=== PATIENT | female | born 1955 | race Caucasian/White ===

== ENCOUNTER 2019-09-14 20:05 | Emergency (ER) | payer BC, OTHER ==
--- OUTSIDE RECORDS SUMMARY | 2019-09-14 20:07 | XMS REPORT ---
:1955 [facility] Address [address] [place] [address] Dr. Whyte. [address] [place] [id number] Care Team Providers Name Role Phone Unavailable Unavailable Unavailable Problems This patient has no known problems. Allergies, Adverse Reactions, Alerts This patient has no known allergies or adverse reactions. Medications This patient has no known medications.
--- OUTSIDE RECORDS SUMMARY | 2019-09-14 20:08 | XMS REPORT | Summary of Care ---
:1955 Author Organization [facility] - Health Address [address] [place] [id number] Care Team Providers Name Role Phone Krissy Arcos Md, MD Primary Care Provider Encounter Details Date Type Department Care Team Description 08/27/2019 Orders Only [facility] Doctor Unassigned, No [address] [facility] Name [place] [phone] [place] [id number] Allergies Active Allergy Reactions Severity Noted Date Comments Amoxicillin-Pot Clavulanate Hives Medium 01/30/2015 documented as of this encounter (statuses as of 08/30/2019) Medications Medication Sig Dispensed Refills Start Date End Date Status LISINOPRIL ORAL Take 30 mg by 0 Active mouth 2 (two) times daily. AMLODIPINE BESYLATE Take 2.5 mg by 0 Active (AMLODIPINE ORAL) mouth every evening. CLONIDINE HCL Take 0.3 mg by 0 Active (CLONIDINE ORAL) mouth 3 (three) times daily. ATORVASTATIN CALCIUM Take 10 mg by 0 Active (ATORVASTATIN ORAL) mouth daily. METFORMIN HCL Take 1,000 mg by 0 Active (METFORMIN ORAL) mouth 2 (two) times daily. LABETALOL HCL Take 200 mg by 0 Active (LABETALOL ORAL) mouth 2 (two) times daily. FUROSEMIDE ORAL Take 40 mg by 0 Active mouth 2 (two) times daily. CITALOPRAM Take 40 mg by 0 Active HYDROBROMIDE mouth 2 (two) (CITALOPRAM ORAL) times daily. GLIMEPIRIDE ORAL Take 4 mg by mouth 0 Active 2 (two) times daily. pantoprazole Take 1 tablet by 30 tablet 0 03/10/2016 Active (PROTONIX) 40 mg EC mouth daily. tablet proMETHazine Take 1 tablet by 20 tablet 0 03/10/2016 Active (PHENERGAN) 25 mg mouth every 6 tablet (six) hours as needed for Nausea and Vomiting (N/V). furosemide (LASIX) 40 Take 1 tablet by 20 tablet 0 04/07/2016 Active mg tablet mouth every morning and evening. lisinopril 30 mg Take 1 tablet by 20 tablet 0 02/26/2017 Active tablet mouth daily. Additional information Patient taking differently: 40 mg Oral DAILY, Reported on 11/25/2018 7:49 PM furosemide (LASIX) 40 mg Take 1 tablet by mouth 20 tablet 0 02/26/2017 Active tablet every morning and evening. cephALEXin (KEFLEX) 500 mg Take 1 capsule by mouth 20 capsule 0 11/25/2018 Active capsuleIndications: Acute 2 (two) times daily. urinary tract infection, Epigastric pain traMADOL 50 mg Take 1 tablet by mouth 12 tablet 0 11/25/2018 Active tabletIndications: Acute every 6 (six) hours as urinary tract infection, needed for Pain (scale Epigastric pain 4-6). letrozole 2.5 mg tablet Take 2.5 mg by mouth 0 Active daily. multivit,calc,mins/iron/foli Take by mouth. 0 Active c (ONE-A-DAY WOMENS FORMULA ORAL) blue-green algae (SPIRULINA 0 Active MISC) levoFLOXacin (LEVAQUIN) 750 Take 1 tablet by mouth 5 tablet 0 11/27/2018 Active mg tabletIndications: every 24 (twenty-four) Hypoglycemia hours. nystatin 100,000 unit/gram Apply to area(s) 2 15 g 0 11/27/2018 Active powderIndications: (two) times daily. Hypoglycemia naproxen sodium (ANAPROX DS) Take 1 tablet by mouth 2 30 tablet 0 2018 Active 550 mg tabletIndications: (two) times daily with Left leg pain, Fall, initial meals. encounter acetaminophen-codeine 300-30 Take 1 tablet by mouth 20 tablet 0 04/03/2019 Active mg tabletIndications: Left every 4 (four) hours as leg pain needed for Pain (scale 4-6) (Cough). documented as of this encounter (statuses as of 08/30/2019) Active Problems Problem Noted Date CHF (congestive heart failure) 11/26/2018 Hypoglycemia 11/25/2018 Obesity (BMI 30-39.9) 11/25/2018 documented as of this encounter (statuses as of 08/30/2019) Social History Tobacco Use Types Packs/Day Years Used Date Never Smoker Smokeless Tobacco: Never Used Alcohol Use Drinks/Week oz/Week Comments No 0 Standard drinks or equivalent 0.0 Sex Assigned at Date Recorded Not on file Job Start Date Occupation Industry Not on file Not on file Not on file Travel History Travel Start Travel End No recent travel history available. documented as of this encounter Last Filed Vital Signs Not on filedocumented in this encounter Plan of Treatment Health Maintenance Due Date Last Done Comments HEPATITIS C (HCV) SCREEN 1955 DTaP,Tdap,and Td Vaccines (1 - Tdap) 1972 Breast Cancer Screening (MAMMOGRAM) 1993 COLONOSCOPY 2003 Zoster Recombinant Vaccine (SHINGRIX) (1 of 2) 2003 Medicare Wellness Visit 2018 Osteoporosis Screening 2018 PNEUMOCOCCAL VACCINES 65+ (1 of 2 - PCV13) 2018 INFLUENZA VACCINE (#1) 2019 documented as of this encounter Procedures Procedure Name Priority Date/Time Associated Diagnosis Comments AUTHORIZATION FOR RELEASE Routine 08/27/2019 12:01 AM OF PHI MUSIC INTERN documented in this encounter Results Not on filedocumented in this encounter Insurance Payer Benefit Plan Subscriber ID Effective Dates Phone Address Type / Group AETNA AETNA TRS [id number] [facility] [id number] 2018-[employer] Medicare Adv MANAGED t O MEDICARE documented as of this encounter
[2019-09-14 20:59] LABS: Absolute Lymphocytes (CBC) 1.3 K/uL (0.7-4.9); Basophils % 0.5 % (0-1.3); Hematocrit 25.4 % (36.0-45.0); Lymphocytes % 12.6 % (15.3-44.8); MPV 7.7 fL (7.6-11.3); RBC Red Blood Cell Count 3.14 M/uL (3.86-4.86)
[2019-09-14 21:25] LABS: ALT/SGPT 9 U/L (12-78); AST/SGOT 10 U/L (15-37); Albumin 2.4 g/dL (3.4-5.0); Alkaline Phosphatase 89 U/L (45-117); BUN Blood Urea Nitrogen 17 mg/dL (7-18); Bicarbonate 27 mmol/L (21-32); Bilirubin Direct < 0.1 mg/dL (0-0.2); Bilirubin Total 0.2 mg/dL (0.2-1.0); Glucose Level 149 mg/dL (74-106); Lipase 291 U/L (73-393); Protein, Total 5.6 g/dL (6.4-8.2); Sodium Level 126 mmol/L (136-145)
[2019-09-14] MEDS ORDERED: POTASSIUM 25 MEQ EFFERV TAB ONE (23:04)
--- NOTE | 2019-09-14 23:45 | ER ---
Nurse's Notes [facility] [place] [place] Name: Juliet Yoon Age: 64 yrs Sex: Female : 1955 Arrival Date: 09/14/2019 Time: 20:22 Bed 2 Private MD: Diagnosis: Hypo-osmolality and hyponatremia;Hypokalemia Presentation: 09/13 20:22 Chief complaint: EMS states: patient fell while fixing her bed. hit head, denies LOC. rv family confirm she has been slow lately but alert and oriented x 4 at home. blood sugar of 193. initially hypotensive with blood pressure of 74/48, went up to 112/70 after t-wood position. Coronavirus screen: The patient has NOT traveled to a country currently being monitored by the CDC within the last 14 days. Proceed with normal triage procedures. The patient has NOT had contact with any known and/or suspected case of coronavirus. Proceed with normal triage procedures. Ebola Screen: No symptoms or risks identified at this time. Initial Sepsis Screen: Does the patient meet any 2 criteria? No. Patient's initial sepsis screen is negative. Does the patient have a suspected source of infection? No. Patient's initial sepsis screen is negative. Risk Assessment: Do you want to hurt yourself or someone else? Patient reports no desire to harm self or others. 20:22 Method Of Arrival: EMS: [facility] rv 20:22 Acuity: GERMAIN 3 rv 22:56 Onset of symptoms was September 14, 2019 at 20:00. rv Historical: - Allergies: 20:26 Augmentin; rv - PMHx: 20:26 heart's palsy; CVA; Hypertension; Diabetes - NIDDM; brain tumor; rv - PSHx: 20:26 ; Hernia repair; rv - Immunization history:: Adult Immunizations up to date. - Social history:: Smoking status: Patient denies any tobacco usage or history of. Screenin:55 Abuse screen: Denies threats or abuse. Denies injuries from another. Nutritional rv screening: No deficits noted. Tuberculosis screening: No symptoms or risk factors identified. Fall Risk Fall in past 12 months (25 points). Secondary diagnosis (15 points) impaired mobility, No IV (0 pts). Ambulatory Aid- Crutches/Cane/Walker (15 pts). Gait- Weak (10 pts.). Mental Status- Oriented to own ability (0 pts). Total Calabrese Fall Scale indicates Low Risk Score (25-44 pts). Fall prevention measures have been instituted. Side Rails Up X 2 Frequent Obs/Assesments occuring As available Patient and Family Educated on Fall Prevention Program and strategies. Assessment: 21:00 General: Appears in no apparent distress. Behavior is calm, cooperative. Pain: Denies rv pain. Neuro: Level of Consciousness is awake, alert, obeys commands, Oriented to person, place, time, situation. 21:00 Cardiovascular: Patient's skin is warm and dry. Respiratory: Airway is patent Breath rv sounds are clear bilaterally. Derm: Skin with poor turgor. 22:00 Reassessment: Patient appears in no apparent distress at this time. Patient and/or jb4 family updated on plan of care and expected duration. Pain level reassessed. Patient is alert, oriented x 3, equal unlabored respirations, skin warm/dry/pink. 23:00 Reassessment: Patient appears in no apparent distress at this time. Patient and/or jb4 family updated on plan of care and expected duration. Pain level reassessed. Patient is alert, oriented x 3, equal unlabored respirations, skin warm/dry/pink. Patient denies pain at this time. 09/14 00:00 Reassessment: Patient appears in no apparent distress at this time. Patient and/or jb4 family updated on plan of care and expected duration. Pain level reassessed. Patient is alert, oriented x 3, equal unlabored respirations, skin warm/dry/pink. 01:00 Reassessment: Patient appears in no apparent distress at this time. Patient and/or jb4 family updated on plan of care and expected duration. Pain level reassessed. Patient is alert, oriented x 3, equal unlabored respirations, skin warm/dry/pink. Pt reports having chronically low sodium and potassium. 01:30 Reassessment: Patient appears in no apparent distress at this time. Patient and/or jb4 family updated on plan of care and expected duration. Pain level reassessed. Patient is alert, oriented x 3, equal unlabored respirations, skin warm/dry/pink. PT denies pain, IV d/c'ed, verbalized understanding of d/c and follow up instructions. Denies questions. Assisted to vehicle via wheelchair.. Vital Signs: 09/13 20:10 BP 98 / 47; Pulse 71; Resp 17; Pulse Ox 100% on R/A; rv 20:22 BP 98 / 47; Pulse 70; Resp 12; Temp 97.2; Pulse Ox 100% ; rv 20:30 BP 108 / 63; Pulse 70; Resp 16; Pulse Ox 99% on R/A; rv 22:15 BP 99 / 61; Pulse 72; Resp 17; Pulse Ox 98% on R/A; rv 23:00 BP 107 / 59; Pulse 76; Resp 17; Pulse Ox 98% on R/A; Pain 0/10; jb4 09/14 00:00 BP 95 / 61; Pulse 77; Resp 16; Pulse Ox 100% on R/A; jb4 01:00 BP 102 / 56; Pulse 78; Resp 16; Pulse Ox 97% on R/A; jb4 ED Course: 09/13 20:22 Patient arrived in ED. rv 20:22 Liban Layne MD is Attending Physician. tw4 20:24 Triage completed. rv 20:26 Maintain EMS IV. Dressing intact. Good blood return noted. Site clean \T\ dry. Gauge \T\ rv site: g20 right hand. 20:54 CT Head Brain wo Cont In Process Unspecified. EDMS 21:00 Arm band placed on Patient placed Patient notified of wait time. rv 21:00 Patient has correct armband on for positive identification. Bed in low position. Call rv light in reach. Pulse ox on. NIBP on. 21:42 Adán Tay RN is Primary Nurse. jb4 23:42 Nati Sawant MD is Hospitalizing Provider. tw4 09/14 01:30 No provider procedures requiring assistance completed. IV discontinued, intact, jb4 bleeding controlled, No redness/swelling at site. Pressure dressing applied. Administered Medications: 09/13 23:07 Drug: Potassium Effervescent Tablet 50 mEq Route: PO; jb4 09/14 00:00 Follow up: Response: No adverse reaction jb4 Outcome: 09/13 23:43 Decision to Hospitalize by Provider. tw4 09/14 01:13 Discharge ordered by . tw4 01:30 Discharged to home via wheelchair, with family. jb4 01:30 Condition: stable 01:30 Discharge instructions given to patient, family, Instructed on discharge instructions, follow up and referral plans. Demonstrated understanding of instructions, follow-up care. 01:41 Patient left the ED. jb4 Signatures: Dispatcher [employer] Adán Hall, RN RN jb4 Liban Layne MD MD tw4 Pierce Vickers RN RN rv Corrections: (The following items were deleted from the chart) 09/13 22:56 22:55 Fall Risk None identified. rv rv
--- NOTE | 2019-09-14 23:45 | EDPHYS ---
Physician Documentation [facility] Name: Juliet Yoon Age: 64 yrs Sex: Female : 1955 Arrival Date: 09/14/2019 Time: 20:22 Bed 2 Private MD: ED Physician Liban Layne HPI: 09/14 04:51 This 64 yrs old Female presents to ER via EMS with complaints of fall. tw4 04:51 Details of fall: The patient fell from an upright position. Onset: The symptoms/episode tw4 began/occurred today. Associated injuries: The patient sustained injury to the head. Severity of symptoms: At their worst the symptoms were very mild, in the emergency department the symptoms have resolved. The patient has not experienced similar symptoms in the past. 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 - Social history:: Smoking status: Patient denies any tobacco usage or history of. ROS: 09/14 04:51 Constitutional: Negative for fever, chills, and weight loss, Eyes: Negative for injury, tw4 pain, redness, and discharge, Cardiovascular: Negative for chest pain, palpitations, and edema, Respiratory: Negative for shortness of breath, cough, wheezing, and pleuritic chest pain, Abdomen/GI: Negative for abdominal pain, nausea, vomiting, diarrhea, and constipation, Back: Negative for injury and pain, MS/Extremity: Negative for injury and deformity, Neuro: Negative for headache, weakness, numbness, tingling, and seizure, Psych: Negative for depression, anxiety, suicide ideation, homicidal ideation, and hallucinations. Exam: 04:51 Constitutional: This is a well developed, well nourished patient who is awake, alert, tw4 and in no acute distress. Head/Face: Normocephalic, atraumatic. Chest/axilla: Normal chest wall appearance and motion. Nontender with no deformity. No lesions are appreciated. Cardiovascular: Regular rate and rhythm with a normal S1 and S2. No gallops, murmurs, or rubs. Normal PMI, no JVD. No pulse deficits. Respiratory: Lungs have equal breath sounds bilaterally, clear to auscultation and percussion. No rales, rhonchi or wheezes noted. No increased work of breathing, no retractions or nasal flaring. Abdomen/GI: Soft, non-tender, with normal bowel sounds. No distension or tympany. No guarding or rebound. No evidence of tenderness throughout. MS/ Extremity: Pulses equal, no cyanosis. Neurovascular intact. Full, normal range of motion. Neuro: Awake and alert, GCS 15, oriented to person, place, time, and situation. Cranial nerves II-XII grossly intact. Motor strength 5/5 in all extremities. Sensory grossly intact. Cerebellar exam normal. Normal gait. Vital Signs: 09/13 20:10 BP 98 / 47; Pulse 71; Resp 17; Pulse Ox 100% on R/A; rv 20:22 BP 98 / 47; Pulse 70; Resp 12; Temp 97.2; Pulse Ox 100% ; rv 20:30 BP 108 / 63; Pulse 70; Resp 16; Pulse Ox 99% on R/A; rv 22:15 BP 99 / 61; Pulse 72; Resp 17; Pulse Ox 98% on R/A; rv 23:00 BP 107 / 59; Pulse 76; Resp 17; Pulse Ox 98% on R/A; Pain 0/10; jb4 09/14 00:00 BP 95 / 61; Pulse 77; Resp 16; Pulse Ox 100% on R/A; jb4 01:00 BP 102 / 56; Pulse 78; Resp 16; Pulse Ox 97% on R/A; jb4 MDM: 09/13 20:22 Patient medically screened. tw4 09/14 04:52 Differential diagnosis: abrasion, closed head injury, contusion. Data reviewed: vital tw4 signs, nurses notes. Data reviewed: lab test result(s), CBC, electrolytes, radiologic studies, CT scan. Data interpreted: Pulse oximetry: Interpretation: normal. Counseling: I had a detailed discussion with the patient and/or guardian regarding: the historical points, exam findings, and any diagnostic results supporting the discharge/admit diagnosis. Special discussion: I discussed with the patient/guardian in detail that at this point there is no indication for admission to the hospital. It is understood, however, that if the symptoms persist or worsen the patient needs to return immediately for re-evaluation. ED course: Pt states that her sodium is chronically low. Pt states that she will followup with PCP tomorrow. Pt remained normotensive and hemodynamically stable during her ED stay. 09/13 20:30 Order name: Basic Metabolic Panel; Complete Time: 22:25 4 09/13 22:25 Interpretation: Normal except: NA 126; CL 91; GLUC 149; K 3.0; GFR 62. tw09/13 20:30 Order name: CBC with Diff; Complete Time: 22:25 4 09/13 22:26 Interpretation: Normal except: RBC 3.14; HGB 8.6; HCT 25.4; MCV 80.8; LYM% 12.6; ODALIS% tw4 76.9; RDW 19.6. 09/13 20:30 Order name: Creatinine for Radiology; Complete Time: 22:25 4 09/13 22:26 Interpretation: Within normal limits: CRE 0.90. 09/13 20:30 Order name: Hepatic Function; Complete Time: 22:25 4 09/13 22:26 Interpretation: Normal except: A/G 0.8; ALB 2.4; TP 5.6; AST 10; ALT 9. 09/13 20:30 Order name: Lipase; Complete Time: 22:25 tw4 09/13 22:26 Interpretation: Within normal limits: LIP 291. 09/13 20:30 Order name: CT Head Brain wo Cont 09/13 20:30 Order name: IV Saline Lock; Complete Time: 20:43 09/13 20:30 Order name: Labs collected and sent; Complete Time: 20:43 Administered Medications: 09/13 23:07 Drug: Potassium Effervescent Tablet 50 mEq Route: PO; 4 09/14 00:00 Follow up: Response: No adverse reaction 4 Disposition: 09/15/19 01:13 Discharged to Home. Impression: Hypo-osmolality and hyponatremia, Hypokalemia. - Condition is Stable. - Discharge Instructions: Potassium Content of Foods, Hyponatremia, Hyponatremia, [id number]. - Medication Reconciliation Form, Thank You Letter, Antibiotic Education, Prescription Opioid Use form. - Follow up: Private Physician; When: Upon discharge from the Emergency Department; Reason: Recheck today's complaints, Continuance of care, Re-evaluation by your physician. Signatures: Dispatcher [employer] EDMS Nilda Tavera RN RN Adán Tay RN RN jb4 Liban Layne MD MD [facility] Pierce Vickers, RN RN Corrections: (The following items were deleted from the chart) 09/13 23:46 23:43 Hospitalization Ordered by Nati Sawant MD for Observation. Preliminary diagnosis is Hypo-osmolality and hyponatremia; Hypokalemia; Fall on same level, unspecified; Weakness. Bed requested for Telemetry/MedSurg (observation). Status is Observation. Condition is Stable. Problem is new. Symptoms are unchanged. [facility] 09/14 01:07 09/13 23:46 09/14/2019 23:43 Hospitalization Ordered by Nati Sawant MD for tw4 Observation. Preliminary diagnosis is Hypo-osmolality and hyponatremia; Hypokalemia; Fall on same level, unspecified; Weakness. Bed requested for [facility] ER HOLD. Status is Observation. Condition is Stable. Problem is new. Symptoms are unchanged. 09/14 01:41 01:13 09/15/2019 01:13 Discharged to Home. Impression: Hypo-osmolality and jb4 hyponatremia; Hypokalemia. Condition is Stable. Forms are Medication Reconciliation Form, Thank You Letter, Antibiotic Education, Prescription Opioid Use. Follow up: Private Physician; When: Upon discharge from the Emergency Department; Reason: Recheck today's complaints, Continuance of care, Re-evaluation by your physician. tw
[2019-09-15 01:52] VITALS: TEMP 97.2
[2019-09-15 01:59] VITALS: BP 102/56; O2SAT 97
--- NOTE | 2019-09-15 12:08 | RAD REPORT ---
EXAM DESCRIPTION: Head Brain Wo Cont CLINICAL HISTORY: 64 years Female PAIN TECHNIQUE: Contiguous axial CT images obtained through the brain without IV contrast. Coronal and sa gittal reformatted images also provided. This CT exam was performed according to our departmental dose-optimization program, which includes on e or more of the following dose reduction techniques: automated exposure control, adjustment of the m A and/or kV according to patient size, and/or use of iterative reconstruction technique. COMPARISON: No prior exams provided for comparison. FINDINGS: Prior right pterional craniotomy with encephalomalacia of the anterior right temporal lobe , inferior right frontal lobe, and right insula. There is no intracranial hemorrhage, extraaxial fabricio ection, or evidence of acute transcortical infarction. Patchy foci of low attenuation within the periventricular and subcortical white matter are most tiffanie tible with chronic microvascular disease. There is mild diffuse volume loss without midline shift. Cueto bcentimeter falcine lipoma. Severe left mastoiditis. The right mastoid air cells are clear. The visualized paranasal sinuses are clear bilaterally. Atherosclerotic calcifications. IMPRESSION: Chronic postsurgical and microvascular changes. Severe left mastoiditis. No other acute intracranial abnormality. Electronically signed by: Adrienne Haider MD 09/14/2019 9:37 PM CDT Due to temporary technical issues with the PACS/Fluency reporting system, reports are being signed by the in house radiologist as a courtesy to ensure prompt reporting. The interpreting radiologist is f ully responsible for the content of the report.
== END 2019-09-15 01:41 | disposition home or self-care (01) ==
LOC: ER 20:05
DX: E87.6 Hypokalemia (principal); E87.1 Hypo-osmolality and hyponatremia; W19.XXXA Unspecified fall, initial encounter; Y93.9 Activity, unspecified; Y92.9 Unspecified place or not applicable; I10 Essential (primary) hypertension; Z86.73 Personal history of transient ischemic attack (TIA), and cerebral infarction without residual deficits; Z88.1 Allergy status to other antibiotic agents
CPT/HCPCS: 36415; 70450; 80048; 80076; 83690; 85025; 99284

== ENCOUNTER 2019-12-21 21:44 | Emergency (ER) | payer OTHER ==
[2019-12-21] MEDS ORDERED: LIDOCAINE 1% W/EPI 1:100,000 MDV 20 ML VIAL ONE ×2 (21:57→22:34)
[2019-12-21] MEDS ORDERED: CEFTRIAXONE/SWI 1gm 1 GM/10 ML SYR ONE (22:34)
[2019-12-21] MEDS ORDERED: NA CHLORIDE 0.9% 1,000 ML ONE (22:34)
[2019-12-21 22:46] LABS: Absolute Lymphocytes (CBC) 1.9 K/uL (0.7-4.9); Basophils % 0.4 % (0-1.3); Hematocrit 29.9 % (36.0-45.0); Lymphocytes % 16.3 % (15.3-44.8); MPV 9.3 fL (7.6-11.3); RBC Red Blood Cell Count 3.93 M/uL (3.86-4.86)
[2019-12-21 22:47] LABS: Protime INR 1.03
[2019-12-21 23:03] LABS: ALT/SGPT 38 U/L (12-78); AST/SGOT 34 U/L (15-37); Albumin 3.7 g/dL (3.4-5.0); Alkaline Phosphatase 130 U/L (45-117); BUN Blood Urea Nitrogen 25 mg/dL (7-18); Bicarbonate 28 mmol/L (21-32); Bilirubin Direct < 0.1 mg/dL (0-0.2); Bilirubin Total 0.4 mg/dL (0.2-1.0); Glucose Level 103 mg/dL (74-106); Magnesium 1.9 mg/dL (1.8-2.4); NT PRO-BNP 297 pg/mL (<125); Potassium 3.2 mmol/L (3.5-5.1); Protein, Total 7.5 g/dL (6.4-8.2); Sodium Level 127 mmol/L (136-145); Troponin (Emerg Dept Use Only) < 0.02 ng/mL (0.0-0.045)
--- OUTSIDE RECORDS SUMMARY | 2019-12-21 23:06 | XMS REPORT | Clinical Summary ---
:1955 Author Organization [facility] Address [address] [place] [address] Care Team Providers Name Role Phone MD Krissy Primary Care Provider Allergies Active Allergy Reactions Severity Noted Date Comments Amoxicillin-Pot Clavulanate Hives Medium 01/30/2015 Medications Medication Sig Dispensed Refills Start End Status Date Date metFORMIN XR Take 1,000 mg by 0 Active (GLUCOPHAGE-XR) 500 mouth 2 (two) mg 24 hr tablet times a day. atorvastatin Take 10 mg by 0 Act wyatt (LIPITOR) 10 MG mouth nightly. tablet ascorbate calcium Take by mouth 0 Active (VITAMIN C ORAL) daily. furosemide (LASIX) Take 40 mg by 0 Active 40 mg tablet mouth 2 (two) times a day. labetalol Take 200 mg by 3 05/19/20 Activ e (NORMODYNE) 200 MG mouth 2 (two) 19 tablet times a day. POTASSIUM ORAL Take by mouth. 0 Active pantoprazole TAKE ONE (1) 30 tablet 0 07/23/19 Acti ve (PROTONIX) 40 MG EC TABLET(S) BY 20 tablet MOUTH EVERY MORNING ON AN EMPTY STOMACH. magnesium oxide 200 Take 200 mg by 60 tablet 1 08/06/19 Active mg magnesium tablet mouth daily. 20 potassium chloride Take 1 tablet 60 tablet 10 09/09/19 Active (K-DUR) 20 MEQ CR (20 mEq total) 20 tablet by mouth 2 (two) times a day. Tradjenta 5 mg TAKE ONE (1) 90 tablet 0 11/30/19 Ac tive tablet TABLET(S) BY 20 MOUTH ONCE A DAY WITH BREAKFAST. traMADoL (ULTRAM) 50 Take 1 tablet 30 tablet 3 11/30/1912/24 Active mg (50 mg total) by 20 020 tabletIndications: mouth every 4 acute pain (four) hours as needed for moderate pain for up to 25 days .acute pain. DULoxetine Take 1 capsule 30 capsule 3 12/09/19 Act wyatt (CYMBALTA) 30 MG (30 mg total) by 20 020 capsule mouth daily for 120 days. ondansetron (ZOFRAN) TAKE ONE (1) 20 tablet 0 12/20/19 Active 8 MG TABLET(S) BY 20 tabletIndications: MOUTH EVERY Invasive ductal EIGHT HOURS carcinoma of breast, NEEDED FOR female, left (HCC) NAUSEA AND VOMITING. furosemide (LASIX) Take 40 mg by 0 Discontinued 40 mg tablet mouth 2 (two) 019 (Re order) times a day. labetalol Take 200 mg by 0 Disco ntinued (NORMODYNE) 200 MG mouth daily. 019 (Stop Taking at tablet Discharge) citalopram (CeleXA) Take 40 mg by 0 Discontinued 40 MG tablet mouth 2 (two) 019 ( erapy times a day. complet ed) mv-mn/folic Take by mouth 0 Disc ontinued acid/calcium/vit K daily. 019 (WOMEN'S 50 PLUS MULTIVITAMIN ORAL) inulin (FIBER Take by mouth 0 Di scontinued GUMMIES ORAL) daily. 019 (Med L ist Cleanup) pantoprazole TAKE 1 TABLET BY 30 tablet 0 11/25/19 Discontinued (PROTONIX) 40 MG EC MOUTH EVERY 019 (Reorder) tablet MORNING ON AN EMPTY STOMACH ondansetron (ZOFRAN) Take 1 tablet (8 30 tablet 2 11/25/19 8 MG tablet mg total) by 019 mouth every 8 (eight) hours as needed for nausea or vomiting for up to 30 days. acetaminophen-codein Take 1 tablet by 0 03/05/20 Discontinued e (TYLENOL WITH mouth every 6 17 019 (Stop Taking at CODEINE #3) 300-30 (six) hours as Discharge) mg per tablet needed. 1 tablet every 4 hrs as needed for pain cephalexin (KEFLEX) Take 500 mg by 0 11/26/1912/21 Discontinued 500 MG capsule mouth. 1 tablet (Therapy twice a day complete d) levoFLOXacin 1 tablet every 0 11/29/19 Di scontinued (LEVAQUIN) 750 MG 24 hrs (T herapy tablet completed) nystatin Apply topically. 0 11/28/19 Dis continued (MYCOSTATIN) 100,000 Apply topically. 18 07 9 (Med List unit/gram powder Stephen carly) insulin GLARGINE By endocrine : 0 12/02/19 Discontinued (BASAGLAR KWIKPEN 25 Units qam (Med List U-100 INSULIN) 100 C leanup) unit/mL injection (pen)Indications: Type 2 diabetes mellitus with hyperglycemia, with long-term current use of insulin ([facility]) lidocaine-prilocaine Apply to port 1 30 g 0 12/17/1916/08 Discontinued (EMLA) 2.5-2.5 % hour prior to creamIndications: chemotherapy Invasive ductal carcinoma of breast, female, left (HCC) letrozole (FEMARA) Take 1 tablet by 10 12/06/1903/01/ Discontinued 2.5 mg chemo tablet mouth every (Reorder) evening. CARAFATE 100 mg/mL Take 10 mL by 0 12/01/19 Discontinued suspension mouth 4 (four) (Med List times a day Cleanup) before meals and nightly. pantoprazole TAKE 1 TABLET BY 30 tablet 0 12/30/19 Discontinued (PROTONIX) 40 MG EC MOUTH EVERY (Reorder) tablet MORNING ON AN EMPTY STOMACH lidocaine-prilocaine Apply to port 1 30 g 3 01/14/2014/08 Discontinued (EMLA) 2.5-2.5 % hour prior to (Stop Taking at creamIndications: chemotherapy Discharge) Invasive ductal carcinoma of breast, female, left (HCC) pantoprazole TAKE 1 TABLET BY 30 tablet 0 02/04/20 Discontinued (PROTONIX) 40 MG EC MOUTH EVERY (Reorder) tablet MORNING ON AN EMPTY STOMACH furosemide (LASIX) Take 1 tablet 60 tablet 0 02/27/20 Discontinued 40 mg tablet (40 mg total) by (Reorder) mouth 2 (two) times a day. furosemide (LASIX) TAKE 1 TABLET BY 30 tablet 0 03/03/2002/28 40 mg tablet MOUTH TWICE DAILY pantoprazole TAKE 1 TABLET BY 30 tablet 0 03/08/20 Discontinued (PROTONIX) 40 MG EC MOUTH EVERY (Reorder) tablet MORNING ON AN EMPTY STOMACH letrozole (FEMARA) Take 1 tablet 30 tablet 0 03/26/20 Discontinued 2.5 mg chemo tablet (2.5 mg total) 019 (Reorder) by mouth daily for 30 days. letrozole (FEMARA) TAKE 1 90 tablet 0 03/30/20 E xpired 2.5 mg chemo tablet TABLET(2.5 MG) BY MOUTH DAILY linaGLIPtin Take 5 mg by 0 Disco ntinued (TRADJENTA) 5 mg mouth daily with 020 (Reorder) tablet breakfast. pantoprazole TAKE 1 TABLET BY 30 tablet 0 04/09/20 Discontinued (PROTONIX) 40 MG EC MOUTH EVERY (Stop Taking at tablet MORNING ON AN Discha rge) EMPTY STOMACH labetalol Take 2 tablets 120 tablet 0 04/08/20 Expi red (NORMODYNE) 200 MG (400 mg total) tablet by mouth 2 (two) times a day for 30 days. acetaminophen-codein Take 1 tablet by 30 tablet 0 04/08/20 e (TYLENOL WITH mouth every 4 CODEINE #3) 300-30 (four) hours as mg per needed for tabletIndications: moderate pain acute pain for up to 30 days .Acute Pain. pantoprazole Take 1 tablet 30 tablet 0 05/01/20 Exp ired (PROTONIX) 40 MG EC (40 mg total) by tabletIndications: mouth daily for Internal derangement 30 days. of left knee, Accelerated hypertension, Hyponatremia, Brown's palsy, Family history of early CAD, Status post brain surgery, S/P colonoscopy with polypectomy, H/O hernia repair, Stage 3 chronic kidney disease (HCC), Anxiety and depression, Swelling of lower extremity, Gait abnormality, Uses walker, Severe obesity (BMI 35.0-39.9) with comorbidity (HCC), Invasive ductal carcinoma of breast, female, left (HCC), Anemia of chronic disease, Hx of endoscopy, Numbness and tingling of both legs, Iron deficiency HYDROcodone-acetamin Take 1 tablet by 20 tablet 0 04/30/20 ophen (NORCO) 10-325 mouth every 6 19 019 mg per (six) hours as tabletIndications: needed for acute pain moderate pain for up to 7 days .Acute Pain. Max Daily Amount: 4 tablets Lactobacillus Take 1 packet (1 90 packet 0 04/30/20 Discontinued acidoph-L.bulgar g total) by 019 ( Med List (LACTINEX) 100 mouth 3 (three) Cleanup) million cell tablet times a day for 30 days. clotrimazole-betamet Apply topically 45 g 1 05/24/2024/08 hasone (LOTRISONE) 2 (two) times a 019 1-0.05 % cream day for 30 days. pantoprazole Take 40 mg by 0 Dis continued (PROTONIX) 40 MG EC mouth every 020 tablet morning. acetaminophen Take by mouth. 0 D iscontinued (TYLENOL ORAL) 019 (Stop Taking at Discharge) HYDROcodone-acetamin Take 1 tablet by 60 tablet 0 06/25/20 ophen (NORCO) 10-325 mouth every 6 19 020 mg per (six) hours as tabletIndications: needed for chronic pain moderate pain for up to 15 days .chronic pain. Max Daily Amount: 4 tablets ondansetron (ZOFRAN) Take 1 tablet (8 20 tablet 1 06/25/20 Discontinued 8 MG mg total) by 19 020 (Reorde r) tabletIndications: mouth every 8 Invasive ductal (eight) hours as carcinoma of breast, needed for female, left (HCC) nausea or vomiting. letrozole (FEMARA) Take 1 tablet 90 tablet 2 07/05/19 2.5 mg chemo tablet (2.5 mg total) 20 020 by mouth daily for 90 days. linaGLIPtin Take 1 tablet (5 90 tablet 0 07/06/19 D iscontinued (TRADJENTA) 5 mg mg total) by 20 020 tablet mouth daily with breakfast. prochlorperazine Take 1 tablet 30 tablet 2 07/12/19 (COMPAZINE) 10 MG (10 mg total) by 20 020 tablet mouth every 6 (six) hours as needed for nausea or vomiting for up to 30 days. HYDROcodone-acetamin Take 1 tablet by 60 tablet 0 07/22/ ophen (NORCO) 10-325 mouth every 6 20 020 mg per (six) hours as tabletIndications: needed for chronic pain moderate pain for up to 30 days .chronic pain. Max Daily Amount: 4 tablets DULoxetine Take 1 capsule 90 capsule 3 07/30/19 Dis continued (CYMBALTA) 30 MG (30 mg total) by 20 020 capsule mouth daily. potassium chloride Take 20 mEq by 15 packet 11 08/06/19 Discontinued (KLOR-CON) 20 mEq mouth every 20 020 (Dose packet other day. adjustmen t) HYDROcodone-acetamin Take 1 tablet by 30 tablet 0 08/26/19 ophen (NORCO) 10-325 mouth every 6 20 020 mg per (six) hours as tabletIndications: needed for chronic pain moderate pain for up to 30 days .chronic pain. Max Daily Amount: 4 tablets OLANZapine (ZyPREXA) Take 1 tablet (5 3 tablet 0 09/30/19 5 MG tablet mg total) by 20 020 mouth nightly for 3 days. To help with nausea DULoxetine 2 tab daily for 0 10/12/19 Dis continued (Cymbalta) 30 MG depression 20 020 capsuleIndications: Reactive depression traMADoL (Ultram) 50 Take 1 tablet 90 tablet 0 10/21/1911/09 Discontinued mg (50 mg total) by 20 020 (Re order) tabletIndications: mouth every 6 acute pain, chronic (six) hours as pain needed for moderate pain for up to 30 days .acute pain, chronic pain. traMADoL (Ultram) 50 chronic pain. 40 tablet 0 11/10/1911/19 mg Take 1 tablet by 20 020 tabletIndications: mouth every 6 chronic pain hours as needed for pain LORAZepam (Ativan) To be taken on 1 tablet 0 11/16/19 0.5 MG tablet the day of the MRI 30 minutes before procedure. DULoxetine Take 2 capsules 3 11/26/19 Dis continued (Cymbalta) 30 MG (60 mg total) by capsuleIndications: mouth daily for Reactive depression 90 days. 2 tab daily for depression DULoxetine Take 1 capsule 30 capsule 11 11/29/19 Dis continued (Cymbalta) 60 MG (60 mg total) by capsule mouth daily. traMADoL (Ultram) 50 Take 1 tablet 20 tablet 0 11/29/1912/03 mg (50 mg total) by 020 tabletIndications: mouth every 6 acute pain (six) hours as needed for moderate pain for up to 5 days .acute pain. ondansetron (Zofran) Take 1 tablet (8 20 tablet 1 12/20/19 Discontinued 8 MG mg total) by (Duplic ate tabletIndications: mouth every 8 order) Invasive ductal (eight) hours as carcinoma of breast, needed for female, left (HCC) nausea or vomiting. Hospital, Clinic, or Ordered Dose Route Frequency Start Date End D ate Status Other Facility Administered Medication potassium chloride 20 mEq IV every 1 hour 01/15/2019 01 Ended 20 mEq in 100 mL 9 IVPB (FOR CENTRAL LINE ONLY)Indications: Invasive ductal carcinoma of breast, female, left (HCC) potassium chloride 20 mEq IV every 1 hour 02/05/2019 01 Ended 20 mEq in 100 mL 9 IVPB (FOR CENTRAL LINE ONLY)Indications: Hypokalemia magnesium sulfate 2 2 g IV once 05/07/2019 Discontinued g/50 mL IVPB 9 (premix)Indications: Hypomagnesemia magnesium sulfate 1 g IV once 07/08/2019 E nded 1g/100mL D5W IVPB 0 (premix)Indications: Hypomagnesemia potassium chloride 20 mEq IV every 1 hour 07/29/2019 02 Ended 20 mEq in 100 mL 0 IVPB (FOR CENTRAL LINE ONLY)Indications: Hypokalemia magnesium sulfate 2 2 g IV once 07/29/2019 Ended g/50 mL IVPB 0 (premix)Indications: Hypomagnesemia magnesium sulfate 2 2 g IV once 08/05/2019 Ended g/50 mL IVPB 0 (premix)Indications: Hypomagnesemia potassium chloride 40 mEq oral once 08/12/2019 Ended (KAYCIEL) 20 mEq/15 0 mL solution 40 mEqIndications: Hypokalemia magnesium sulfate 2 2 g IV once 08/12/2019 Ended g/50 mL IVPB 0 (premix)Indications: Hypomagnesemia potassium chloride 40 mEq oral once 08/19/2019 Discontinued (K-DUR) CR tablet 40 0 mEqIndications: Hypokalemia magnesium sulfate 2 2 g IV once 08/19/2019 Ended g/50 mL IVPB 0 (premix)Indications: Hypomagnesemia potassium chloride 20 mEq IV every 1 hour 08/19/2019 02 Ended 20 mEq in 100 mL 0 IVPB (FOR CENTRAL LINE ONLY)Indications: Hypokalemia magnesium sulfate 2 2 g IV once 08/26/2019 Ended g/50 mL IVPB 0 (premix)Indications: Hypomagnesemia potassium chloride 40 mEq oral once 08/26/2019 Ended (K-DUR) CR tablet 40 0 mEqIndications: Hypokalemia potassium chloride 20 mEq IV every 1 hour 09/09/2019 02 Ended 20 mEq in 100 mL 0 IVPB (FOR CENTRAL LINE ONLY)Indications: Hypokalemia magnesium sulfate 2 2 g IV once 09/09/2019 Ended g/50 mL IVPB 0 (premix)Indications: Hypomagnesemia potassium chloride 40 mEq oral once 09/09/2019 Ended (K-DUR) CR tablet 40 0 mEqIndications: Hypokalemia Active Problems Problem Noted Date Iron deficiency anemia 10/12/2019 Balance problems 10/12/2019 Weakness 10/12/2019 Acute knee pain 10/12/2019 Hypokalemia 08/05/[address] Hutton 04/201907/18/2019 Overview: Nuclear stress test 10/2018 no perfusion defect Echo 65% EF Carotid duplex ;minimal thickenning H/O cardiovascular stress test 11/1507/18/2019 H/O echocardiogram 2018 EF 65 % 07/18/2019 Hypomagnesemia 05/07/2019 Tibial plateau fracture, left 04/13/2019 Hyponatremia 04/05/2019 Internal derangement of left knee 04/04/2019 Iron deficiency 12/09/2018 Numbness and tingling of both legs 12/08/2018 Invasive ductal carcinoma of breast, female, left 09/28 Cancer Staging: Pathologic stage from : No Stage Recommended (ypT2, pN0, cM0) - Signed by Johnny Le MD on 07/27/2019 Anemia of chronic disease 10/13/2018 Hx of endoscopy 2 to GI bleed 2 to ibuprofen in 2016 0 10/13/2018 Anxiety and depression 09/22/2018 Swelling of lower extremity 09/22/2018 Gait abnormality 09/22/2018 Uses walker 09/22/2018 Severe obesity (BMI 35.0-39.9) with comorbidity 2018 Diabetes mellitus 09/21/2018 Hyperlipidemia 09/21/2018 Hypertension 09/21/2018 Sleep apnea 09/21/2018 Overview: with out cpap Osteoarthritis 09/21/2018 GERD (gastroesophageal reflux disease) 09/21/2018 Brown's palsy 09/21/2018 Family history of early CAD BROTHER 09/21/2018 Status post brain surgery: tumor 2012 09/21/2018 S/P colonoscopy with polypectomy 201509/21/2018 Basal cell carcinoma 09/21/2018 H/O hernia repair 09/21/2018 Idiopathic scoliosis 09/21/2018 History of cataract surgery b/l 09/21/2018 Stage 3 chronic kidney disease 09/21/2018 Resolved Problems Problem Noted Date Resolved Date Malignant neoplasm of left female breast 06/16/2019 06/18/2019 Breast cancer in female 06/16/2019 06/18/2019 Encounters Date Type Specialty Care Team Description 12/21/2019 Telephone Oncology Sagrario Gurrola NP-C 12/21/2019 Social Work Oncology Jose Babb LMSW 12/21/2019 Telephone Oncology Sagrario Gurrola NP-C 12/20/2019 Orders Only Oncology Sagrario Gurrola ductal JEAN Ferrara carcinoma of br east, female, left (H CC) 12/20/2019 Refill Oncology Niravaharley, Invasive ductal Eugenie Torres MD carcinoma of b reast, female, left (H CC) 12/14/2019 Social Work Oncology Jose Babb, EXTRUDER OPERATOR VERTICAL 12/14/2019 Orders Only Oncology Niravath, Encounter for a ntineoplastic chemotherapy (Primary Dx); Eugenie Torres MD Osteoporosis s creening; Post-menopausal 12/14/2019 Telephone Oncology Sagrario Gurrola NP-C 12/09/2019 Nurse Only Oncology Krissy, Elevated blood sugar (Primary Dx); MD Josselyn Hypokalemia; Hypomagnesemia; Invasive ductal carcinoma of breast, female, left (HCC) 12/09/2019 Office Visit Oncology Sagrario Gurrola Invasive ductal YESSY FerraraC carcinoma of br east, female, left (H CC) (Primary Dx) 12/09/2019 Infusion Oncology Gay, Hypokalemia (Pr imary Dx); Eugenie Torres MD Hypomagnesemia ; Invasive ductal carcinoma of breast, female, left (HCC) 12/09/2019 Orders Only Oncology Ezequiel Miguel RN 12/09/2019 Orders Only Oncology Gay, Hypokalemia (Pr imary Dx); Eugenie Torres MD Hypomagnesemia ; Invasive ductal carcinoma of breast, female, left (HCC) 12/09/2019 Travel 12/09/2019 [facility] 12/06/2019 Travel 12/03/2019 Orders Only Oncology Ezequiel Miguel, MARVIN 11/30/2019 Refill Orthopedic Surgery Alejandra Ivy MA 11/29/2019 Orders Only Oncology Sagrario Gurrola NP-C 11/29/2019 Orders Only Oncology Ezequiel Miguel RN 11/29/2019 Telephone Oncology Eugenie Bowen MD 11/29/2019 Orders Only Oncology Ezequiel Miguel RN 11/28/2019 Refill Internal Medicine Josselyn Rey MD 11/26/2019 Office Visit Orthopedic Surgery Buchert, Thoracic compression fracture, closed, initial encounter ([facility]) (Primary Dx); Maik Verdugo, Sagittal plane imbalance; PA-C Acute midline t horacic back pain; Degenerative sc oliosis in adult patient; Degeneration of intervertebral disc of lumbar region; Spondylolisthes is of lumbar region; Chronic low amina k pain, unspecified back pain laterality, unspecified whether sciatica present 11/26/2019 Orders Only Oncology Gurrola, Sagrario Reactive paul Ferrara EXTERMINATOR HELPER TERMITE-C 11/25/2019 Travel 11/24/2019 Social Work Oncology Jose Babb, [facility] 11/18/2019 Infusion Oncology Niravath, Hypokalemia (Pr imary Dx); Eugenie Torres MD Hypomagnesemia ; Invasive ductal carcinoma of breast, female, left (HCC); Stage 3 chronic kidney disease (HCC) 11/18/2019 Office Visit Oncology Niravath, Invasive ductal carcinoma of breast, female, left (HCC) (Primary Dx); Eugenie Torres MD Nausea and vom iting, intractability of vomiting not specified, unspecified vomiting type; Back pain, unsp ecified back location, unspecified back pain laterality, unspecified chronicity; Compression fra cture of body of thoracic vertebra (HCC); Counseling and coordination of care; Hypokalemia; Hypomagnesemia 11/18/2019 Hospital Encounter Radiology Niravath, Abnormal finding of Eugenie Torres MD diagnostic emeka ging 11/18/2019 Oncology Oncology Favian Brown, RN 11/18/2019 Orders Only Oncology Ezequiel Miguel RN 11/17/2019 Travel 11/16/2019 Orders Only Oncology Gurrola, Sagrario Ferrara, EXTERMINATOR HELPER [employer]-C 11/15/2019 Telephone Oncology GurrolaSagrario presley, EXTERMINATOR HELPER TERMITE-C 11/15/2019 Travel 11/15/2019 Orders Only Oncology Niravath, Abnormal findin g of Eugenie Torres MD diagnostic emeka ging (Primary Dx) 11/10/2019 Orders Only Oncology Sagrario Gurrola, EXTERMINATOR HEL[employer]-C 11/09/2019 Travel 11/09/2019 Documentation Oncology GurrolaSagrario presley, EXTERMINATOR HELPER TERM[employer]-C 11/09/2019 Orders Only Pharmacy Shanda Calzada, [facility] 11/09/2019 Telephone Oncology Sagrario Gurrola, EXTERMINATOR HELPER TERM[employer]-C 10/28/2019 Telephone Oncology GurrolaSagrario presley, EXTERMINATOR HELPER TERM[employer]-C 10/27/2019 Social Work Oncology Jose Babb, [facility] 10/22/2019 Telephone Oncology GurrolaSagrario presley, EXTERMINATOR HELPER TERMITE-C 10/21/2019 Hospital Encounter Radiology Niravath, Eugenie Torres MD 10/21/2019 Office Visit Oncology Gurrola, Sagrario Invasive ductal Alem, JAYLA-C carcinoma of br east, female, left (H CC) (Primary Dx) 10/21/2019 Hospital Encounter Radiology Niravath, Invasive ductal Eugenie Torres MD carcinoma of b reast, female, left (H CC) 10/21/2019 Infusion Oncology Niravath, Hypokalemia (Pr imary Dx); Eugenie Torres MD Hypomagnesemia ; Invasive ductal carcinoma of breast, female, left (HCC); Stage 3 chronic kidney disease (HCC) 10/21/2019 Orders Only Oncology Sagrario Gurrola, JAYLA-C 10/20/2019 Travel 10/20/2019 Documentation Oncology Lang Johnson RN 10/19/2019 Telephone Consult Internal Medicine [facility], React wyatt depression (Primary Dx); MD Josselyn Uncontrolled ty pe 2 diabetes mellitus with hyperglycemia (HCC); Mixed hyperlipi demia; Essential hyper tension; Weight loss 10/19/2019 Orders Only Oncology Niravath, Hypokalemia (Pr imary Dx); Eugenie Torres MD Hypomagnesemia ; Invasive ductal carcinoma of breast, female, left (HCC) 10/18/2019 Social Work Oncology Jose Babb [facility] 10/18/2019 Travel 10/18/2019 Orders Only Oncology Niravath, Invasive ductal Eugenie Torres MD carcinoma of b reast, female, left (H CC) (Primary Dx) 10/15/2019 Telephone Oncology Eugenie Bowen MD 10/14/2019 Telephone Oncology Eugenie Bowen MD 10/13/2019 Travel 10/13/2019 Telephone Internal Medicine [facility], Acute pain of both knees (Primary Dx); MD Josselyn Weakness; Balance problem ; Gait disorder 10/13/2019 Telephone Oncology Eugenie Bowen MD 10/12/2019 [facility]2019 Social Work Oncology Jose Babb LMSW 10/04/2019 Social Work Oncology Jose Babb LMSW 09/30/2019 Office Visit Oncology Niravath, Invasive ductal carcinoma of breast, female, left (HCC) (Primary Dx); Eugenie Torres MD Nausea and vom iting, intractability of vomiting not specified, unspecified vomiting type; Anemia, unspeci fied type 09/30/2019 Infusion Oncology Niravath, Hypokalemia (Pr imary Dx); Eugenie Torres MD Hypomagnesemia ; Invasive ductal carcinoma of breast, female, left (HCC); Anemia of chron ic disease; Stage 3 chronic kidney disease (HCC) 09/30/2019 Orders Only Oncology Ezequiel Miguel RN 09/30/2019 Orders Only Oncology Majo Rosa RN 09/29/2019 Travel 09/27/2019 Social Work Oncology Jose Babb, [facility] 09/23/2019 Social Work Oncology Jose Babb, [facility] 09/22/2019 Orders Only Oncology Gurrola, Sagrario Invasive ductal Alem, EXTERMINATOR HELPER TERMITE-C carcinoma of br east, female, left (H CC) (Primary Dx) 09/22/2019 Orders Only Internal Medicine ProviderKavitha MD 09/22/2019 Telephone Oncology NiravaEugenie souza MD 09/16/2019 Documentation Oncology Shanda Calzada, [facility] 09/14/2019 Travel 09/10/2019 Telephone Oncology GurrolaSagrario presley, EXTERMINATOR HELPER TERMITE-C 09/10/2019 Telephone Oncology Sagrario Gurrola, EXTERMINATOR HELPER TERM[employer]-C 09/09/2019 Hospital Encounter Procedural Niravath, Invasive ductal carcinoma of breast, female, left (HCC); Cardiology Euegnie Torres MD [facility] for 09/09/2019 Office Visit Oncology Gurrola, Sagrario Invasive ductal Alem, EXTERMINATOR HELPER TERMITE-C carcinoma of br east, female, left (H CC) (Primary Dx) 09/09/2019 Infusion Oncology Niravath, Hypokalemia (Pr imary Dx); Eugenie Torres MD Hypomagnesemia ; Invasive ductal carcinoma of breast, female, left (HCC) 09/09/2019 Orders Only Oncology Ezequiel Miguel RN 09/09/2019 Documentation Oncology João Núñez Decision to hold on Paco Morton MD initiation of TDM 1 09/09/2019 Documentation Oncology Mona Munroe, [facility] 09/09/2019 Orders Only Oncology João Núñez Jr., MD 09/09/2019 Orders Only Oncology Ezequiel Miguel RN 09/09/2019 Travel 09/07/2019 Hospital Encounter Radiology Niravath, Abdominal pain, Eugenie Torres MD unspecified ab dominal location 09/07/2019 Orders Only Oncology Chintapenta, Hypokalemia (Pr imary Dx); Shanda [facility] Hypomagnesemia; Invasive ductal carcinoma of breast, female, left (HCC) 09/07/2019 Orders Only Oncology Ezequiel Miguel RN 09/06/2019 Orders Only Oncology Ezequiel Miguel RN 09/02/2019 Orders Only Oncology Niravath, Abdominal pain, Eugenie Torres MD unspecified ab dominal location (Prima ry Dx) 09/02/2019 Orders Only Oncology NiravaEugenie souza MD 09/02/2019 Orders Only Oncology Niravath, Eugenie Torres MD 08/26/2019 Hospital Encounter Radiology Niravath, Stomach p claudetten Eugenie Torres MD 08/26/2019 Office Visit Oncology Sagrario Gurrola Invasive ductal Alem, EXTERMINATOR HELPER TERMITE-C carcinoma of br east, female, left (H CC) (Primary Dx) 08/26/2019 Infusion Oncology Niravath, Invasive ductal carcinoma of breast, female, left (HCC) (Primary Dx); Eugenie Torres MD Hypokalemia; Hypomagnesemia 08/26/2019 Telephone Oncology Sagrario Gurrola, EXTERMINATOR HELPER TERMITE-C 08/26/2019 Orders Only Oncology Niravath, Eugenie Torres MD 08/26/2019 Orders Only Oncology Niravath, Stomach pain (P rimary Eugenie Torres MD Dx) 08/24/2019 Orders Only Oncology Ezequiel Miguel RN 08/20/2019 Social Work Oncology Skinny Jose, [facility] 08/19/2019 Infusion Oncology Niravath, Hypokalemia (Pr imary Dx); Eugenie Torres MD Hypomagnesemia ; Invasive ductal carcinoma of breast, female, left (HCC) 08/19/2019 Office Visit Oncology Niravath, Invasive ductal Eugenie Torres MD carcinoma of b reast, female, left (H CC) (Primary Dx) 08/19/2019 Orders Only Oncology Ezequiel Miguel RN 08/19/2019 Orders Only Oncology Niravath, Hypokalemia (Pr imary Dx); Eugenie Torres MD Hypomagnesemia ; Invasive ductal carcinoma of breast, female, left (HCC) 08/19/2019 Orders Only Oncology Niravath, Invasive ductal carcinoma of breast, female, left (HCC) (Primary Dx); Eugenie Torres MD Chemotherapy m anagement, encounter for 08/19/2019 Orders Only Oncology Shanda Calzada, [facility] 08/17/2019 Documentation Oncology Gay, Eugenie Torres MD 08/12/2019 Office Visit Oncology Niravath, Invasive ductal Eugenie Torres MD carcinoma of b reast, female, left (H CC) (Primary Dx) 08/12/2019 Infusion Oncology Niravath, Hypokalemia (Pr imary Dx); Eugenie Torres MD Hypomagnesemia ; Invasive ductal carcinoma of breast, female, left (HCC) 08/12/2019 Oncology Oncology Kevin, Survivorship MARVIN Arcos 08/06/2019 Orders Only Oncology Ezequiel Miguel RN 08/06/2019 Social Work Oncology Jose Babb, [facility] 08/05/2019 Infusion Oncology Niravath, Hypomagnesemia (Primary Dx); Eugenie Torres MD Invasive ducta l carcinoma of breast, female, left (HCC); Hypokalemia 08/05/2019 Orders Only Oncology Eugenie Bowen MD 08/05/2019 Orders Only Oncology Ezequiel Miguel, RN 07/30/2019 Orders Only Oncology Ezequiel Miguel, RN 07/29/2019 Office Visit Oncology Gay, Invasive ductal Eugenie Torres MD carcinoma of b reast, female, left (H CC) (Primary Dx) 07/29/2019 Infusion Oncology Niravath, Hypomagnesemia (Primary Dx); Eugenie Torres MD Invasive ducta l carcinoma of breast, female, left (HCC); Hypokalemia 07/29/2019 Orders Only Oncology Chapo Calzadaica, [facility] 07/29/2019 Oncology Oncology Kevin, Favian Arcos, MARVIN 07/28/2019 Orders Only Oncology Niravath, Hypomagnesemia; Eugenie Torres MD Invasive ducta l carcinoma of breast, female, left (HCC); Hypokalemia 07/23/2019 Refill Internal Medicine Josselyn Rey MD 07/22/2019 Orders Only Oncology Niravaharley, Eugenie Torres MD 07/22/2019 Orders Only Oncology Ezequiel Miguel, RN 07/12/2019 Orders Only Oncology Ezequiel Miguel, RN 07/08/2019 Infusion Oncology Niravath, Invasive ductal carcinoma of breast, female, left (HCC) (Primary Dx); Eugenie Torres MD Hypomagnesemia 07/08/2019 Oncology Oncology Favian Brown, MARVIN 07/08/2019 Orders Only Oncology Rickeytapenta, Shanda, RPH 07/08/2019 Orders Only Oncology Ezequiel Miguel RN 07/08/2019 Orders Only Oncology Skinny, Hypomagnesemia (Primary Dx); MARVIN Nailscold mill inspector ductal carcinoma of breast, female, left (HCC) 07/06/2019 Telephone Internal Medicine Maame Cande, [place] 07/05/2019 Orders Only Oncology Niravath, Invasive ductal carcinoma of breast, female, left (HCC) (Primary Dx); Eugenie Torres MD Encounter for chemotherapy management 07/05/2019 Orders Only Oncology Niravath, Invasive ductal carcinoma of breast, female, left (HCC) (Primary Dx); Eugenie Torres MD Encounter for chemotherapy management 07/05/2019 Orders Only Oncology Ezequiel Miguel RN 06/29/2019 Orders Only Oncology Ezequiel Miguel RN 06/25/2019 Office Visit Oncology Niravath, Invasive ductal Eugenie Torres MD carcinoma of b reast, female, left (H CC) (Primary Dx) 06/25/2019 Orders Only Oncology Chintapenta, Invasive ductal Shanda, RPH carcinoma of br east, female, left (H CC) (Primary Dx) 06/21/2019 Telephone Oncology Josselyn Brown RN 06/18/2019 Documentation General Surgery Johnny Le MD 06/16/2019 Surgery Urology STEPHANIA Le SIMPLE MAS TECTOMY Johnny Chowdary MD 06/16/[address], MD Rolando Hatfield Alison Joy, NP 06/16/2019 Hospital Encounter Radiology Mimi, Malignant neoplasm of Johnny Chowdary MD left breast i n female, estrogen recept or negative, unspe cified site of breast (HCC) 06/16/2019 Hospital Encounter Cardiology Mimi Malignant neoplasm of - Johnny Chowdary MD left female b reast 06/18/2019 (HCC) 06/14/2019 Transcribe Orders Radiology Mimi Malignant neoplasm of Johnny Chowdary MD left breast i n female, estrogen recept or negative, unspe cified site of breast (HCC) (Primary Dx) 06/10/2019 Orders Only Internal Medicine Kavitha Abreu MD 06/10/2019 Telephone Internal Medicine Josselyn Rey MD 06/09/2019 Orders Only Internal Medicine Kavitha Abreu MD 06/09/2019 Telephone Internal Medicine Josselyn Rey MD 06/09/2019 Telephone Internal Medicine Josselyn Rey MD 06/04/2019 Hospital Encounter Radiology Mimi, Preop exa mination Johnny Chowdary MD 06/04/2019 Pre-Admit Testing Pre-Admission Mimi, Preop alondra ting (Primary Appointment Testing Johnny Chowdary MD Dx) 06/04/2019 Transcribe Orders Access Mimi, Preop exam ination Johnny Chowdary MD (Primary Dx) 06/03/2019 Orders Only Oncology Jaqui Babb RN 06/02/2019 Telephone Oncology Gay, Eugenie Torres MD 05/24/2019 Office Visit Internal Medicine Krissy, Closed fra cture of left tibial plateau, initial encounter (Primary Dx); MD Josselyn Uncontrolled ty pe 2 diabetes mellitus with hyperglycemia (HCC); Mixed hyperlipi demia; Elevated blood pressure reading; Invasive ductal carcinoma of breast, female, left (HCC); Skin rash 05/12/2019 Hospital Encounter Radiology Mimi, Malignant neoplasm of Johnny Chowdary MD left female b reast, unspecified est rogen receptor status , unspecified sit e of breast (HCC) 05/12/2019 Hospital Encounter Radiology Mimi, Malignant neoplasm of Johnny Chowdary MD left female b reast, unspecified est rogen receptor status , unspecified sit e of breast (HCC) 05/07/2019 Office Visit Oncology Sagrario Gurrola Invasive ductal Alem, EXTERMINATOR HELPER TERMITE-C carcinoma of br east, female, left (H CC) (Primary Dx) 05/07/2019 Infusion Oncology Niravaharley, Hypomagnesemia (Primary Dx); Eugenie Torres MD Invasive ducta l carcinoma of breast, female, left (HCC) 05/07/2019 Orders Only Oncology Niravaharley, Invasive ductal Eugenie Torres MD carcinoma of b reast, female, left (H CC) 05/07/2019 Orders Only Oncology Ezequiel Miguel RN 05/06/2019 Office Visit Orthopedic Surgery Kendall Cordero Closed fracture of MD Cory left tibial colin teau, initial encount er (Primary Dx) 05/05/2019 Orders Only Orthopedic Surgery Fitch, Left knee pain, Teresa, [place] unspecified chr onicity (Primary Dx) 05/05/2019 Orders Only Oncology Chintapenta, Invasive ductal Shanda, RPH carcinoma of br east, female, left (H CC) 05/05/2019 Orders Only Oncology Erin Cook, MARVIN 05/04/2019 Patient Outreach Quality Tawana, MARVIN Izquierdo 05/03/2019 Documentation Oncology Ezequiel Miguel RN 05/03/2019 Orders Only Oncology Niravath, Invasive ductal carcinoma of breast, female, left (HCC) (Primary Dx); Eugenie Torres MD Weakness gener alized 05/03/2019 Orders Only Oncology Ezequiel Miguel Invasive duct awilda Vaughn RN carcinoma of br east, female, left (H CC) (Primary Dx) 05/03/2019 Telephone Oncology Eugenie Bowen MD 04/29/2019 Telephone Family Medicine Josselyn Rey MD 04/16/2019 Office Visit Oncology Sagrario Gurrola Invasive ductal Alem, EXTERMINATOR HELPER TERMITE-C carcinoma of br east, female, left (H CC) (Primary Dx) 04/16/2019 Infusion Oncology Gay, Invasive ductal Eugenie Torres MD carcinoma of b reast, female, left (H CC) (Primary Dx) 04/16/2019 Transcribe Orders Access Mimi, Malignant neoplasm of Johnny Chowdary MD left female b reast, unspecified est rogen receptor status , unspecified sit e of breast (HCC) (P rimary Dx) 04/16/2019 Orders Only Oncology Gay, Invasive ductal Eugenie Torres MD carcinoma of b reast, female, left (H CC) 04/16/2019 Orders Only Oncology Ezequiel Miguel Invasive duct awilda Vaughn RN carcinoma of br east, female, left (H CC) 04/14/2019 Orders Only Oncology Erin Cook, MARVIN 04/13/2019 Hospital Encounter [facility] Joesph Altamirano hypertension (Primary Dx); - Facility MD Jyoti Internal derangement of left knee; 04/30/2019 [place] Nielsen Accelerated h ypertension; MD Carolynn Hyponatremia; Lydia El, Brown's palsy; Family history of early CAD BROTHER ; Status post bra in surgery: tumor 2011 ; S/P colonoscopy with polypectomy 2016 ; H/O hernia repa ir; Stage 3 chronic kidney disease (HCC); Anxiety and dep ression; Swelling of low er extremity; Gait abnormalit y; Uses walker; Severe obesity (BMI 35.0-39.9) with comorbidity (HCC); Invasive ductal carcinoma of breast, female, left (HCC); Anemia of chron ic disease; Hx of endoscopy 2 to GI bleed 2 to ibuprofen in 2016 ; Numbness and ti ngling of both legs; Iron deficiency ; Closed fracture of left tibial plateau, initial encounter 04/08/2019 Refill Internal Medicine Josselyn Rey MD 04/05/2019 Telephone Oncology Eugenie Bowen MD 04/05/2019 Travel 04/04/2019 Hospital Encounter Transplant [place] Internal derangement of left knee (Primary Dx); - MD Johnny Accelerated hypertension; 04/13/2019 Ariadne Lucero, Hyponatremia; Brown's palsy; Adarsh, Family history of early CAD BROTHER ; MD Jyoti Status post brain surgery: tumor 2011 ; Smith, S/P colonoscopy with polypectomy 2015 ; Aditi H/O hernia repa ir; MD Renay Stage 3 chroni c kidney disease (HCC); Anxiety and dep ression; Swelling of low er extremity; Gait abnormalit y; Uses walker; Severe obesity (BMI 35.0-39.9) with comorbidity (HCC); Invasive ductal carcinoma of breast, female, left (HCC); Anemia of chron ic disease; Hx of endoscopy 2 to GI bleed 2 to ibuprofen in 2016 ; Numbness and ti ngling of both legs; Iron deficiency 03/30/2019 Orders Only Oncology Ezequiel Miguel RN 03/29/2019 Telephone Oncology Eugenie Bowen MD 03/26/2019 Office Visit Oncology Sagrario Gurrola Invasive JEAN Schmitt carcinoma of breast, Niravath, female, left (H CC) Eugenie Torres MD (Primary Dx) 03/26/2019 Infusion Oncology Tiny Bowen ductal Eugenie Torres MD carcinoma of b reast, female, left (H CC) (Primary Dx) 03/26/2019 Refill Oncology Eugenie Bowen MD 03/26/2019 Orders Only Oncology Ezequiel Miguel RN 03/26/2019 Oncology Oncology Kevin, Survivorship MARVIN Arcos 03/17/2019 Orders Only Oncology Ezequiel Miguel RN 03/15/2019 Orders Only Oncology Laina Smith MD carcinoma of br east, female, left (H CC) 03/15/2019 Orders Only Oncology Erin Cook RN 03/15/2019 Telephone Oncology Eugenie Bowen MD 03/15/2019 Orders Only Oncology Ezequiel Miguel RN 03/12/2019 Telephone Oncology Eugenie Bowen MD 03/06/2019 Refill Internal Medicine Josselyn Rey MD 02/28/2019 Refill Oncology Eugenie Bowen MD 02/26/2019 Hospital Encounter Procedural Niravath, Swelling of lower Cardiology Eugenie Torres MD extremity 02/26/2019 Office Visit Oncology Niravath, Invasive ductal carcinoma of breast, female, left (HCC) (Primary Dx); Eugenie Torres MD Swelling of lo wer extremity; Encounter for a ntineoplastic chemotherapy; Dysuria; Iron deficiency anemia, unspecified iron deficiency anemia type 02/26/2019 Infusion Oncology Niravath, Invasive ductal Eugenie Torres MD carcinoma of b reast, female, left (H CC) (Primary Dx) 02/26/2019 Orders Only Oncology Lc Gunderson, [facility] 02/26/2019 Orders Only Oncology Niravath, Invasive ductal Eugenie Torres MD carcinoma of b reast, female, left (H CC) 02/23/2019 Orders Only Oncology Erin Cook, MARVIN 02/09/2019 Telephone Oncology NiravaEugenie souza MD 02/05/2019 Office Visit Oncology Niravath, Invasive ductal Eugenie Torres MD carcinoma of b reast, female, left (H CC) (Primary Dx) 02/05/2019 Infusion Oncology Niravath, Invasive ductal carcinoma of breast, female, left (HCC) (Primary Dx); Eugenie Torres MD Hypokalemia 02/05/2019 Orders Only Oncology Niravath, Invasive ductal carcinoma of breast, female, left (HCC) (Primary Dx); Eugenie Torres MD Generalized we akness 02/05/2019 Oncology Oncology Favian Brown RN 02/03/2019 Refill Internal Medicine Josselyn Rey MD 02/01/2019 Telephone Oncology Josselyn Brown RN 02/01/2019 Telephone Oncology Josselyn Brown RN 01/26/2019 Telephone Oncology Eugenie Bowen MD 01/19/2019 Telephone Oncology Josselyn Brown RN 01/15/2019 Office Visit Oncology Gay Invasive drew Torres MD carcinoma of b reast, female, left (H CC) (Primary Dx) 01/15/2019 Infusion Oncology Tiny Bowen MD carcinoma of b reast, female, left (H CC) (Primary Dx) 01/15/2019 Oncology Oncology Favian Brown RN 01/14/2019 Orders Only Oncology Tiny Bowen MD carcinoma of b reast, female, left (H CC) 01/13/2019 Orders Only Oncology Giorgi Invasive ductal MARVIN Jackman carcinoma of b reast, female, left (H CC) 01/01/2019 Telephone Oncology Eugenie Bowen MD 12/29/2018 Orders Only Internal Medicine ProviderKavitha MD 12/29/2018 Refill Internal Medicine Josselyn Rey MD 12/25/2018 Telephone Oncology Eugenie Bowen MD 12/25/2018 Telephone Oncology Josselyn Brown RN 12/24/2018 Office Visit Oncology Tiny Bowen MD carcinoma of b reast, female, left (H CC) (Primary Dx) 12/24/2018 Infusion Oncology Gay Invasive drew Torres MD carcinoma of b reast, female, left (H CC) (Primary Dx) 12/24/2018 Documentation Oncology Augustina Rand RN 12/24/2018 Telephone Oncology Sury Gallo RN 12/24/2018 Oncology Oncology Favian Canela RN 12/24/2018 Orders Only Oncology Giorgi, Malignant neopl asm of MARVIN Jackman female breast, unspecified est rogen receptor status , unspecified laterality, unspecified sit e of breast (HCC) (P rimary Dx) 12/23/2018 Hospital Encounter Radiology Tiny Bowen MD carcinoma of b reast, female, left (H CC) 12/23/2018 Orders Only Oncology Eugenie Bowen MD after 12/20/2018 Family History Relation Name Status Comments Father Mother Social History Tobacco Use Types Packs/Day Years Used Date Never Smoker Smokeless Tobacco: Never Used Alcohol Use Drinks/Week oz/Week Comments Not Currently Alcohol Habits Answer Date Recorded How often do you have a drink containing alcohol? Never 09/21/2018 How many drinks containing alcohol do you have on a typical Not asked day when you are drinking? How often do you have six or more drinks on one occasion? No t asked Sex Assigned at Date Recorded Not on file Job Start Date Occupation Industry Not on file Not on file Not on file Travel History Travel Start Travel End No recent travel history available. COVID-19 Exposure Response Date Recorded In the last month, have you been in contact with No / Unsure 12/09/2019 8:46 AM CDT someone who was confirmed or suspected to have Coronavirus / COVID-19? Last Filed Vital Signs Vital Sign Reading Time Taken Comments Blood Pressure 126/61 12/09/2019 9:20 AM CDT Pulse 71 12/09/2019 9:20 AM CDT Temperature 36.9 C (98.4 F) 12/09/2019 9:20 AM CDT Respiratory Rate 18 12/09/2019 9:20 AM CDT Oxygen Saturation 99% 12/09/2019 9:20 AM CDT Inhaled Oxygen Concentration - - Weight 59.4 kg (130 lb 14.4 oz) 12/09/2019 9:20 AM CDT Height 152.4 cm (5') 12/09/2019 9:20 AM CDT Body Mass Index 25.56 12/09/2019 9:20 AM CDT Plan of Treatment Date Type Specialty Care Team Description 12/27/2019 Office Visit Internal Medicine Lazaro Rey MD [address] [facility] [address] [place], [place] [address] 12/27/2019 Appointment Radiology Eugenie Bowen MD [address] [facility] [address] [place], [place] [address] [phone] 12/29/2019 Telephone Consult Neurosurgery Daquan Correa MD [address] [facility] [address] [place], [place] [address] 12/30/2019 Office Visit Oncology Eugenie Bowen MD [address] [address] [phone] 12/30/2019 Infusion Oncology Eugenie Bowen MD [address] [address] [phone] 12/30/2019 Appointment Procedural Cardiology Eugenie Bowen MD [address] [facility] [address] [place] [address] [phone] 01/20/2020 Infusion Oncology Eugenie Bowen MD [address] [place] [address] [phone] 02/10/2020 Infusion Oncology Eugenie Bowen MD [address] [place] [address] 0 [phone] Health Maintenance Due Date Last Done Comments SHINGLES VACCINES (#1) 2003 65+ PNEUMOCOCCAL VACCINE (1 of 2 - 2018 PCV13) DIABETIC FOOT EXAM 10/14/2019 10/13/2018, 10/13/2018 DIABETIC RETINAL EYE EXAM 12/31/2019 12/30/2017 INFLUENZA VACCINE 01/29/2020 BREAST CANCER SCREENING 05/12/2021 05/12/2019, 05/12/2019, 10/07/2018, Additional history exists COLONOSCOPY SCREENING 03/27/2026 03/27/2016 Implants Implanted Type Area Candy Depositing Machine Operator Device Shelf Model / Identifier Expiration Serial / Date Lot Port Injctbl Smart Port Ct W/ Dtchd Plyurthn Cath 8fr - [id number] Implantable N/A: ANGIODYNAMICS 06/29/2021 [id number] / Implanted: 12/23/2018 at [facility] (Quantity not on file) Inf usion Ports N/A INC / or Accessories [id number] Procedures Procedure Name Priority Date/Time Associated Comments Diagnosis HEMOGLOBIN A1C STAT 12/09/2019 10:17 Elevated blood Results for this AM CDT sugar procedure are i n the results section. LIPID PANEL STAT 12/09/2019 10:17 Elevated blood Results f or this AM CDT sugar procedure are i n the results section. THYROID STIMULATING STAT 12/09/2019 10:17 Elevated blood Re sults for this HORMONE AM CDT sugar procedure are i n the results section. ESTIMATED GFR STAT 12/09/2019 9:05 Results fo r this AM CDT procedure are i n the results section. MAGNESIUM LEVEL STAT 12/09/2019 9:05 Hypokalemia Results for this AM CDT Hypomagnesemia procedure are in Invasive ductal the results carcinoma of section. breast, female, left (HCC) HC COMPLETE BLD COUNT STAT 12/09/2019 9:05 Hypokalem ia Results for this W/AUTO DIFF AM CDT Hypomagnesemia procedure are in Invasive ductal the results carcinoma of section. breast, female, left (HCC) COMPREHENSIVE METABOLIC STAT 12/09/2019 9:05 Hypokal emia Results for this PANEL AM CDT Hypomagnesemia procedure are in Invasive ductal the results carcinoma of section. breast, female, left (HCC) XR SPINE SCOLIOSIS 2-3 Routine 11/26/2019 12:52 Thoracic R esults for this VIEWS PM CDT compression procedure are i n fracture, closed, the result s initial encounter section. ([facility]) Sagittal plane imbalance Acute midline thoracic back pain ESTIMATED GFR STAT 11/18/2019 9:09 Results fo r this AM CDT procedure are i n the results section. MAGNESIUM LEVEL STAT 11/18/2019 9:09 Hypokalemia Results for this AM CDT Hypomagnesemia procedure are in Invasive ductal the results carcinoma of section. breast, female, left (HCC) HC COMPLETE BLD COUNT STAT 11/18/2019 9:09 Hypokalem ia Results for this W/AUTO DIFF AM CDT Hypomagnesemia procedure are in Invasive ductal the results carcinoma of section. breast, female, left (HCC) COMPREHENSIVE METABOLIC STAT 11/18/2019 9:09 Hypokal emia Results for this PANEL AM CDT Hypomagnesemia procedure are in Invasive ductal the results carcinoma of section. breast, female, left (HCC) MRI THORACIC SPINE WO Routine 11/18/2019 8:41 Abnormal findin g of Results for this CONTRAST AM CDT diagnostic imaging procedure are in the results section. NM BONE SCAN WHOLE BODY Routine 10/21/2019 3:29 Invasive duct al Results for this PM CDT carcinoma of procedure are i n breast, female, the results left (HCC) section. ESTIMATED GFR STAT 10/21/2019 8:34 Results fo r this AM CDT procedure are i n the results section. MAGNESIUM LEVEL STAT 10/21/2019 8:34 Hypokalemia Results for this AM CDT Hypomagnesemia procedure are in Invasive ductal the results carcinoma of section. breast, female, left (HCC) HC COMPLETE BLD COUNT STAT 10/21/2019 8:34 Hypokalem ia Results for this W/AUTO DIFF AM CDT Hypomagnesemia procedure are in Invasive ductal the results carcinoma of section. breast, female, left (HCC) COMPREHENSIVE METABOLIC STAT 10/21/2019 8:34 Hypokal emia Results for this PANEL AM CDT Hypomagnesemia procedure are in Invasive ductal the results carcinoma of section. breast, female, left (HCC) TRANSFUSE RED BLOOD Routine 09/30/2019 5:09 Anemia of chronic CELLS PM CDT disease PREPARE RBC STAT 09/30/2019 11:20 Anemia of chronic Result s for this AM CDT disease procedure are i n the results section. TYPE AND SCREEN STAT 09/30/2019 11:20 Hypokalemia Results for this AM CDT Hypomagnesemia procedure are in Invasive ductal the results carcinoma of section. breast, female, left (HCC) ESTIMATED GFR STAT 09/30/2019 10:15 Results fo r this AM CDT procedure are i n the results section. MAGNESIUM LEVEL STAT 09/30/2019 10:15 Hypokalemia Results for this AM CDT Hypomagnesemia procedure are in Invasive ductal the results carcinoma of section. breast, female, left (HCC) HC COMPLETE BLD COUNT STAT 09/30/2019 10:15 Hypokalem ia Results for this W/AUTO DIFF AM CDT Hypomagnesemia procedure are in Invasive ductal the results carcinoma of section. breast, female, left (HCC) COMPREHENSIVE METABOLIC STAT 09/30/2019 10:15 Hypokal emia Results for this PANEL AM CDT Hypomagnesemia procedure are in Invasive ductal the results carcinoma of section. breast, female, left (HCC) IP CONSULT TO Routine 09/22/2019 GASTROENTEROLOGY TTE COMPLETE, WO Routine 09/09/2019 3:02 Invasive ductal Resu lts for this CONTRAST, W DOPPLER PM CDT carcinoma of procedur e are in ([id number]) breast, female, the results left (HCC) section. Chemotherapy management, encounter for ESTIMATED GFR STAT 09/09/2019 9:59 Results fo r this AM CDT procedure are i n the results section. MAGNESIUM LEVEL STAT 09/09/2019 9:59 Hypokalemia Results for this AM CDT Hypomagnesemia procedure are in Invasive ductal the results carcinoma of section. breast, female, left (HCC) HC COMPLETE BLD COUNT STAT 09/09/2019 9:59 Hypokalem ia Results for this W/AUTO DIFF AM CDT Hypomagnesemia procedure are in Invasive ductal the results carcinoma of section. breast, female, left (HCC) COMPREHENSIVE METABOLIC STAT 09/09/2019 9:59 Hypokal emia Results for this PANEL AM CDT Hypomagnesemia procedure are in Invasive ductal the results carcinoma of section. breast, female, left (HCC) CT ABDOMEN W CONTRAST Routine 09/07/2019 3:12 Abdominal pain, Results for this PM CDT unspecified procedure are i n abdominal location the resul ts section. XR ABDOMEN 1 VW Routine 08/26/2019 1:31 Stomach pain Results for this PM ROLLOFF DRIVER procedure are i n the results section. ESTIMATED GFR STAT 08/26/2019 8:40 Results fo r this AM ROLLOFF DRIVER procedure are i n the results section. MAGNESIUM LEVEL STAT 08/26/2019 8:40 Invasive ductal Resul ts for this AM ROLLOFF DRIVER carcinoma of procedure are i n breast, female, the results left (HCC) section. HC COMPLETE BLD COUNT STAT 08/26/2019 8:40 Invasive ductal Results for this W/AUTO DIFF AM ROLLOFF DRIVER carcinoma of procedure are i n breast, female, the results left (HCC) section. COMPREHENSIVE METABOLIC STAT 08/26/2019 8:40 Invasive duct al Results for this PANEL AM ROLLOFF DRIVER carcinoma of procedure are i n breast, female, the results left (HCC) section. ESTIMATED GFR STAT 08/19/2019 10:00 Results fo r this AM ROLLOFF DRIVER procedure are i n the results section. MAGNESIUM LEVEL STAT 08/19/2019 10:00 Hypokalemia Results for this AM ROLLOFF DRIVER Hypomagnesemia procedure are in Invasive ductal the results carcinoma of section. breast, female, left (HCC) HC COMPLETE BLD COUNT STAT 08/19/2019 10:00 Hypokalem ia Results for this W/AUTO DIFF AM ROLLOFF DRIVER Hypomagnesemia procedure are in Invasive ductal the results carcinoma of section. breast, female, left ([facility]) COMPREHENSIVE METABOLIC STAT 08/19/2019 10:00 Hypokal emia Results for this PANEL AM ROLLOFF DRIVER Hypomagnesemia procedure are in Invasive ductal the results carcinoma of section. breast, female, left ([facility]) ESTIMATED GFR Routine 08/12/2019 9:47 Results fo r this AM ROLLOFF DRIVER procedure are i n the results section. MAGNESIUM LEVEL Routine 08/12/2019 9:47 Hypokalemia Results for this AM ROLLOFF DRIVER Hypomagnesemia procedure are in Invasive ductal the results carcinoma of section. breast, female, left ([facility]) HC COMPLETE BLD COUNT Routine 08/12/2019 9:47 Hypokalem ia Results for this W/AUTO DIFF AM ROLLOFF DRIVER Hypomagnesemia procedure are in Invasive ductal the results carcinoma of section. breast, female, left ([facility]) COMPREHENSIVE METABOLIC Routine 08/12/2019 9:47 Hypokal emia Results for this PANEL AM ROLLOFF DRIVER Hypomagnesemia procedure are in Invasive ductal the results carcinoma of section. breast, female, left ([facility]) ESTIMATED GFR Routine 08/05/2019 9:27 Results fo r this AM [employer]OFF DRIVER procedure are i n the results section. MAGNESIUM LEVEL Routine 08/05/2019 9:27 Hypomagnesemia Results for this AM [employer]OFF DRIVER Invasive ductal procedure ar e in carcinoma of the results breast, female, section. left ([facility]) COMPLETE BLD COUNT Routine 08/05/2019 9:27 Hypomagne semia Results for this W/AUTO DIFF AM [employer]OFF DRIVER Invasive ductal procedure ar e in carcinoma of the results breast, female, section. left ([facility]) COMPREHENSIVE METABOLIC Routine 08/05/2019 9:27 Hypomag nesemia Results for this PANEL AM [employer]OFF DRIVER Invasive ductal procedure ar e in carcinoma of the results breast, female, section. left ([facility]) ESTIMATED GFR Routine 07/29/2019 8:45 Results fo r this AM [employer]OFF [employer]IVER procedure are i n the results section. MAGNESIUM LEVEL Routine 07/29/2019 8:45 Hypomagnesemia Results for this AM ROLLOFF DRIVER Invasive ductal procedure ar e in carcinoma of the results breast, female, section. 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 left ([facility]) ESTIMATED GFR Routine 07/08/2019 9:30 Results fo r this AM [employer]OFF DRIVER procedure are i n the results section. 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 left ([facility]) POC GLUCOSE Routine 06/18/2019 7:20 Results for this AM ROLLOFF DRIVER procedure are i n the results section. POC GLUCOSE Routine 06/17/2019 9:08 Results for this PM ROLLOFF DRIVER procedure are i n the results section. POC GLUCOSE Routine 06/17/2019 5:28 Results for this PM ROLLOFF DRIVER procedure are i n the results section. POC GLUCOSE Routine 06/17/2019 11:35 Results for this AM ROLLOFF DRIVER procedure are i n the results section. POC GLUCOSE Routine 06/17/2019 7:34 Results for this AM ROLLOFF DRIVER procedure are i n the results section. POC GLUCOSE Routine 06/17/2019 1:40 Results for this AM ROLLOFF DRIVER procedure are i n the results section. POC GLUCOSE Routine 06/16/2019 9:14 Results for this PM ROLLOFF DRIVER procedure are i n the results section. POC GLUCOSE Routine 06/16/2019 4:37 Results for this PM ROLLOFF DRIVER procedure are i n the results section. POC GLUCOSE Routine 06/16/2019 12:16 Results for this PM ROLLOFF DRIVER procedure are i n the results section. SURGICAL PATHOLOGY Routine 06/16/2019 10:59 Resul ts for this REQUEST AM [employer]OFF DRIVER procedure are i n the results section. FL AN ELECTIVE Routine 06/16/2019 9:56 Results f or this SUPRAGLOTTIC AIRWAY AM ROLLOFF DRIVER procedur e are in the results section. BIOPSY, LYMPH NODE, 06/16/2019 9:30 Malignant neoplas m SENTINEL AM ROLLOFF DRIVER of left female breast ([facility]) MASTECTOMY, SIMPLE 06/16/2019 9:30 Malignant neoplasm AM ROLLOFF DRIVER of left female breast (HCC) NM INJECT SULFUR COLLOID Routine 06/16/2019 9:20 Malignant ne oplasm Results for this LYMPH AM ROLLOFF DRIVER of left breast in procedure are in female, estrogen the results receptor negative, section. unspecified site of breast (HCC) POC GLUCOSE Routine 06/16/2019 6:26 Results for this AM ROLLOFF DRIVER procedure are i n the results section. OBTAIN MEDICAL RECORDS Routine 06/10/2019 IP CONSULT TO CARDIOLOGY Routine 06/09/2019 Res ults for this procedure are i n the results section. XR CHEST 2 VW Routine 06/04/2019 12:43 Preop examination Resul ts for this PM ROLLOFF DRIVER procedure are i n the results section. ECG PRE/POST OP Routine 06/04/2019 12:09 Preop testing Results for this PM ROLLOFF DRIVER procedure are i n the results section. ESTIMATED GFR Routine 06/04/2019 11:49 Results fo r this AM [employer]OFF DRIVER procedure are i n the results section. COMPREHENSIVE METABOLIC Routine 06/04/2019 11:49 Preop testing Results for this PANEL AM [employer]OFF DRIVER procedure are i n the results section. CBC HEMOGRAM Routine 06/04/2019 11:49 Preop testing Results fo r this AM [employer]OFF DRIVER procedure are i n the results section. US BREAST COMPLETE Routine 05/12/2019 10:23 Malignant neoplasm Results for this BILATERAL AM ROLLOFF DRIVER of left female procedure are in breast, unspecified the resu lts estrogen receptor section. status, unspecified site of breast (HCC) MAMMO BREAST DIAGNOSTIC Routine 05/12/2019 9:50 Malignant yanick plasm Results for this TOMOSYNTHESIS BILATERAL AM ROLLOFF DRIVER of left female pr ocedure are in breast, unspecified the resu lts estrogen receptor section. status, unspecified site of breast (HCC) ESTIMATED GFR Routine 05/07/2019 9:25 Results fo r this AM RO[employer]OFF DRIVER procedure are i n the results section. MAGNESIUM LEVEL Routine 05/07/2019 9:25 Invasive ductal Resul ts for this AM ROLLOFF DRIVER carcinoma of procedure are i n breast, female, the results left (HCC) section. HC COMPLETE BLD COUNT Routine 05/07/2019 9:25 Invasive ductal Results for this W/AUTO DIFF AM ROLLOFF DRIVER carcinoma of procedure are i n breast, female, the results left (HCC) section. COMPREHENSIVE METABOLIC Routine 05/07/2019 9:25 Invasive duct al Results for this PANEL AM ROLLOFF DRIVER carcinoma of procedure are i n breast, female, the results left (HCC) section. XR KNEE 3 VW LEFT Routine 05/06/2019 10:37 Left knee pain, Res ults for this AM ROLLOFF DRIVER unspecified procedure are i n chronicity the results section. XR LEG LENGTH EVALUATION Routine 05/06/2019 10:37 Left knee pa in, Results for this AM ROLLOFF DRIVER unspecified procedure are i n chronicity the results section. POC GLUCOSE Routine 04/30/2019 5:34 Results for this PM CDT procedure are i n the results section. POC GLUCOSE Routine 04/30/2019 12:33 Results for this PM CDT procedure are i n the results section. POC GLUCOSE Routine 04/30/2019 8:23 Results for this AM CDT procedure are i n the results section. POC GLUCOSE Routine 04/29/2019 8:38 Results for this PM CDT procedure are i n the results section. POC GLUCOSE Routine 04/29/2019 6:11 Results for this PM CDT procedure are i n the results section. POC GLUCOSE Routine 04/29/2019 12:19 Results for this PM CDT procedure are i n the results section. POC GLUCOSE Routine 04/29/2019 7:27 Results for this AM CDT procedure are i n the results section. POC GLUCOSE Routine 04/28/2019 8:47 Results for this PM CDT procedure are i n the results section. POC GLUCOSE Routine 04/28/2019 5:35 Results for this PM CDT procedure are i n the results section. POC GLUCOSE Routine 04/28/2019 12:06 Results for this PM CDT procedure are i n the results section. POC GLUCOSE Routine 04/28/2019 7:41 Results for this AM CDT procedure are i n the results section. POC GLUCOSE Routine 04/27/2019 8:51 Results for this PM CDT procedure are i n the results section. POC GLUCOSE Routine 04/27/2019 5:55 Results for this PM CDT procedure are i n the results section. POC GLUCOSE Routine 04/27/2019 11:49 Results for this AM CDT procedure are i n the results section. POC GLUCOSE Routine 04/27/2019 8:11 Results for this AM CDT procedure are i n the results section. POC GLUCOSE Routine 04/26/2019 5:37 Results for this PM CDT procedure are i n the results section. POC GLUCOSE Routine 04/26/2019 11:58 Results for this AM CDT procedure are i n the results section. POC GLUCOSE Routine 04/26/2019 6:52 Results for this AM CDT procedure are i n the results section. POC GLUCOSE Routine 04/25/2019 9:09 Results for this PM CDT procedure are i n the results section. POC GLUCOSE Routine 04/25/2019 4:48 Results for this PM CDT procedure are i n the results section. POC GLUCOSE Routine 04/25/2019 11:54 Results for this AM CDT procedure are i n the results section. POC GLUCOSE Routine 04/25/2019 8:09 Results for this AM CDT procedure are i n the results section. POC GLUCOSE Routine 04/24/2019 9:13 Results for this PM CDT procedure are i n the results section. POC GLUCOSE Routine 04/24/2019 6:06 Results for this PM CDT procedure are i n the results section. POC GLUCOSE Routine 04/24/2019 11:56 Results for this AM CDT procedure are i n the results section. POC GLUCOSE Routine 04/24/2019 7:35 Results for this AM CDT procedure are i n the results section. POC GLUCOSE Routine 04/23/2019 9:40 Results for this PM CDT procedure are i n the results section. XR KNEE 1 OR 2 VW LEFT STAT 04/23/2019 8:50 R esults for this PM CDT procedure are i n the results section. POC GLUCOSE Routine 04/23/2019 5:49 Results for this PM CDT procedure are i n the results section. POC GLUCOSE Routine 04/23/2019 11:56 Results for this AM CDT procedure are i n the results section. POC GLUCOSE Routine 04/23/2019 7:21 Results for this AM CDT procedure are i n the results section. POC GLUCOSE Routine 04/22/2019 5:52 Results for this PM CDT procedure are i n the results section. POC GLUCOSE Routine 04/22/2019 11:52 Results for this AM CDT procedure are i n the results section. POC GLUCOSE Routine 04/22/2019 7:18 Results for this AM CDT procedure are i n the results section. ESTIMATED GFR Routine 04/22/2019 4:00 Results fo r this AM CDT procedure are i n the results section. BASIC METABOLIC PANEL Routine 04/22/2019 4:00 Re sults for this AM CDT procedure are i n the results section. POC GLUCOSE Routine 04/21/2019 8:47 Results for this PM CDT procedure are i n the results section. POC GLUCOSE Routine 04/21/2019 6:04 Results for this PM CDT procedure are i n the results section. POC GLUCOSE Routine 04/21/2019 11:26 Results for this AM CDT procedure are i n the results section. POC GLUCOSE Routine 04/21/2019 7:12 Results for this AM CDT procedure are i n the results section. POC GLUCOSE Routine 04/20/2019 8:20 Results for this PM CDT procedure are i n the results section. POC GLUCOSE Routine 04/20/2019 5:29 Results for this PM CDT procedure are i n the results section. POC GLUCOSE Routine 04/20/2019 11:41 Results for this AM CDT procedure are i n the results section. POC GLUCOSE Routine 04/20/2019 7:17 Results for this AM CDT procedure are i n the results section. B NATRIURETIC PEPTIDE Routine 04/20/2019 6:15 Re sults for this AM CDT procedure are i n the results section. POC GLUCOSE Routine 04/19/2019 9:00 Results for this PM CDT procedure are i n the results section. ESTIMATED GFR Routine 04/19/2019 7:40 Results fo r this PM CDT procedure are i n the results section. BASIC METABOLIC PANEL Routine 04/19/2019 7:40 Re sults for this PM CDT procedure are i n the results section. POC GLUCOSE Routine 04/19/2019 5:37 Results for this PM CDT procedure are i n the results section. POC GLUCOSE Routine 04/19/2019 12:00 Results for this PM CDT procedure are i n the results section. POC GLUCOSE Routine 04/19/2019 7:47 Results for this AM CDT procedure are i n the results section. POC GLUCOSE Routine 04/18/2019 9:08 Results for this PM CDT procedure are i n the results section. POC GLUCOSE Routine 04/18/2019 5:15 Results for this PM CDT procedure are i n the results section. POC GLUCOSE Routine 04/18/2019 11:41 Results for this AM CDT procedure are i n the results section. POC GLUCOSE Routine 04/18/2019 7:43 Results for this AM CDT procedure are i n the results section. POC GLUCOSE Routine 04/17/2019 8:57 Results for this PM CDT procedure are i n the results section. GASTROINTESTINAL PANEL Routine 04/17/2019 7:56 R esults for this PM CDT procedure are i n the results section. POC GLUCOSE Routine 04/17/2019 5:53 Results for this PM CDT procedure are i n the results section. POC GLUCOSE Routine 04/17/2019 12:01 Results for this PM CDT procedure are i n the results section. POC GLUCOSE Routine 04/17/2019 8:24 Results for this AM CDT procedure are i n the results section. POC GLUCOSE Routine 04/16/2019 9:06 Results for this PM CDT procedure are i n the results section. POC GLUCOSE Routine 04/16/2019 5:26 Results for this PM CDT procedure are i n the results section. ESTIMATED GFR STAT 04/16/2019 9:15 Results fo r this AM CDT procedure are i n the results section. COMPREHENSIVE METABOLIC STAT 04/16/2019 9:15 Invasive duct al Results for this PANEL AM CDT carcinoma of procedure are i n breast, female, the results left (HCC) section. HC COMPLETE BLD COUNT STAT 04/16/2019 9:15 Invasive ductal Results for this W/AUTO DIFF AM CDT carcinoma of procedure are i n breast, female, the results left (HCC) section. POC GLUCOSE Routine 04/16/2019 7:17 Results for this AM CDT procedure are i n the results section. POC GLUCOSE Routine 04/15/2019 9:36 Results for this PM CDT procedure are i n the results section. POC GLUCOSE Routine 04/15/2019 5:37 Results for this PM CDT procedure are i n the results section. POC GLUCOSE Routine 04/15/2019 11:31 Results for this AM CDT procedure are i n the results section. POC GLUCOSE Routine 04/15/2019 7:35 Results for this AM CDT procedure are i n the results section. POC GLUCOSE Routine 04/14/2019 9:01 Results for this PM CDT procedure are i n the results section. POC GLUCOSE Routine 04/14/2019 5:40 Results for this PM CDT procedure are i n the results section. POC GLUCOSE Routine 04/14/2019 11:41 Results for this AM CDT procedure are i n the results section. POC GLUCOSE Routine 04/14/2019 7:20 Results for this AM CDT procedure are i n the results section. POC GLUCOSE Routine 04/13/2019 5:31 Results for this PM CDT procedure are i n the results section. POC GLUCOSE Routine 04/13/2019 12:38 Results for this PM CDT procedure are i n the results section. POC GLUCOSE Routine 04/13/2019 7:23 Results for this AM CDT procedure are i n the results section. POC GLUCOSE Routine 04/12/2019 9:33 Results for this PM CDT procedure are i n the results section. POC GLUCOSE Routine 04/12/2019 5:05 Results for this PM CDT procedure are i n the results section. POC GLUCOSE Routine 04/12/2019 11:40 Results for this AM CDT procedure are i n the results section. POC GLUCOSE Routine 04/12/2019 7:45 Results for this AM CDT procedure are i n the results section. POC GLUCOSE Routine 04/12/2019 6:23 Results for this AM CDT procedure are i n the results section. POC GLUCOSE Routine 04/11/2019 10:01 Results for this PM CDT procedure are i n the results section. POC GLUCOSE Routine 04/11/2019 5:00 Results for this PM CDT procedure are i n the results section. POC GLUCOSE Routine 04/11/2019 12:06 Results for this PM CDT procedure are i n the results section. POC GLUCOSE Routine 04/11/2019 7:23 Results for this AM CDT procedure are i n the results section. POC GLUCOSE Routine 04/11/2019 6:44 Results for this AM CDT procedure are i n the results section. POC GLUCOSE Routine 04/10/2019 9:08 Results for this PM CDT procedure are i n the results section. POC GLUCOSE Routine 04/10/2019 6:05 Results for this PM CDT procedure are i n the results section. POC GLUCOSE Routine 04/10/2019 11:58 Results for this AM CDT procedure are i n the results section. POC GLUCOSE Routine 04/10/2019 7:32 Results for this AM CDT procedure are i n the results section. POC GLUCOSE Routine 04/09/2019 11:32 Results for this PM CDT procedure are i n the results section. POC GLUCOSE Routine 04/09/2019 4:26 Results for this PM CDT procedure are i n the results section. POC GLUCOSE Routine 04/09/2019 12:11 Results for this PM CDT procedure are i n the results section. POC GLUCOSE Routine 04/09/2019 7:01 Results for this AM CDT procedure are i n the results section. POC GLUCOSE Routine 04/08/2019 9:14 Results for this PM CDT procedure are i n the results section. POC GLUCOSE Routine 04/08/2019 5:06 Results for this PM CDT procedure are i n the results section. POC GLUCOSE Routine 04/08/2019 12:25 Results for this PM CDT procedure are i n the results section. POC GLUCOSE Routine 04/08/2019 7:14 Results for this AM CDT procedure are i n the results section. POC GLUCOSE Routine 04/07/2019 5:12 Results for this PM CDT procedure are i n the results section. POC GLUCOSE Routine 04/07/2019 12:04 Results for this PM CDT procedure are i n the results section. POC GLUCOSE Routine 04/07/2019 7:32 Results for this AM CDT procedure are i n the results section. ESTIMATED GFR Routine 04/07/2019 4:00 Results fo r this AM CDT procedure are i n the results section. BASIC METABOLIC PANEL Routine 04/07/2019 4:00 Re sults for this AM CDT procedure are i n the results section. POC GLUCOSE Routine 04/06/2019 9:29 Results for this PM CDT procedure are i n the results section. POC GLUCOSE Routine 04/06/2019 5:51 Results for this PM CDT procedure are i n the results section. POC GLUCOSE Routine 04/06/2019 12:48 Results for this PM CDT procedure are i n the results section. POC GLUCOSE Routine 04/06/2019 8:02 Results for this AM CDT procedure are i n the results section. POC GLUCOSE Routine 04/05/2019 9:46 Results for this PM CDT procedure are i n the results section. MRI KNEE WO CONTRAST Routine 04/05/2019 9:20 Res ults for this LEFT PM CDT procedure are i n the results section. MRI PELVIS WO CONTRAST Routine 04/05/2019 9:00 R esults for this PM CDT procedure are i n the results section. POC GLUCOSE Routine 04/05/2019 6:05 Results for this PM CDT procedure are i n the results section. POC GLUCOSE Routine 04/05/2019 11:46 Results for this AM CDT procedure are i n the results section. POC GLUCOSE Routine 04/05/2019 7:45 Results for this AM CDT procedure are i n the results section. HEMOGLOBIN A1C Routine 04/05/2019 4:00 Results f or this AM CDT procedure are i n the results section. ESTIMATED GFR Routine 04/05/2019 4:00 Results fo r this AM CDT procedure are i n the results section. COMPREHENSIVE METABOLIC Routine 04/05/2019 4:00 Results for this PANEL AM CDT procedure are i n the results section. HC COMPLETE BLD COUNT Routine 04/05/2019 4:00 Re sults for this W/AUTO DIFF AM CDT procedure are i n the results section. BLOOD CULTURE, AEROBIC & Routine 04/05/2019 12:55 Results for this ANAEROBIC AM CDT procedure are i n the results section. BLOOD CULTURE, AEROBIC & Routine 04/05/2019 12:53 Results for this ANAEROBIC AM CDT procedure are i n the results section. ECG ED PRELIMINARY Routine 04/04/2019 11:16 Resul ts for this INTERPRETATION PM CDT procedure are in the results section. US DUPLEX VENOUS LOWER STAT 04/04/2019 10:50 R esults for this EXTREMITY LEFT PM CDT procedure are in the results section. ECG 12-LEAD STAT 04/04/2019 10:21 Results for this PM CDT procedure are i n the results section. XR KNEE 4+ VW LEFT STAT 04/04/2019 9:56 Resul ts for this PM CDT procedure are i n the results section. ESTIMATED GFR STAT 04/04/2019 9:53 Results fo r this PM CDT procedure are i n the results section. BASIC METABOLIC PANEL STAT 04/04/2019 9:53 Re sults for this PM CDT procedure are i n the results section. HC COMPLETE BLD COUNT STAT 04/04/2019 9:53 Re sults for this W/AUTO DIFF PM CDT procedure are i n the results section. ESTIMATED GFR STAT 03/26/2019 8:51 Results fo r this AM CDT procedure are i n the results section. COMPREHENSIVE METABOLIC STAT 03/26/2019 8:51 Invasive duct al Results for this PANEL AM CDT carcinoma of procedure are i n breast, female, the results left (HCC) section. HC COMPLETE BLD COUNT STAT 03/26/2019 8:51 Invasive ductal Results for this W/AUTO DIFF AM CDT carcinoma of procedure are i n breast, female, the results left (HCC) section. US DUPLEX VENOUS LOWER Routine 02/26/2019 4:10 Swelling of lo wer Results for this EXTREMITY LEFT PM CDT extremity procedure are in the results section. GRAM STAIN Routine 02/26/2019 1:24 Results for this PM CDT procedure are i n the results section. URINE CULTURE Routine 02/26/2019 1:24 Results fo r this PM CDT procedure are i n the results section. URINALYSIS SCREEN AND Routine 02/26/2019 1:00 Re sults for this MICROSCOPY, WITH REFLEX PM CDT proc edure are in TO CULTURE the results section. ESTIMATED GFR STAT 02/26/2019 9:40 Results fo r this AM CDT procedure are i n the results section. COMPREHENSIVE METABOLIC STAT 02/26/2019 9:40 Invasive duct al Results for this PANEL AM CDT carcinoma of procedure are i n breast, female, the results left (HCC) section. HC COMPLETE BLD COUNT STAT 02/26/2019 9:40 Invasive ductal Results for this W/AUTO DIFF AM CDT carcinoma of procedure are i n breast, female, the results left (HCC) section. ESTIMATED GFR STAT 02/05/2019 8:52 Results fo r this AM CDT procedure are i n the results section. COMPREHENSIVE METABOLIC STAT 02/05/2019 8:52 Invasive duct al Results for this PANEL AM CDT carcinoma of procedure are i n breast, female, the results left (HCC) section. HC COMPLETE BLD COUNT STAT 02/05/2019 8:52 Invasive ductal Results for this W/AUTO DIFF AM CDT carcinoma of procedure are i n breast, female, the results left (HCC) section. ESTIMATED GFR STAT 01/15/2019 9:34 Results fo r this AM CDT procedure are i n the results section. HC COMPLETE BLD COUNT STAT 01/15/2019 9:34 Invasive ductal Results for this W/AUTO DIFF AM CDT carcinoma of procedure are i n breast, female, the results left (HCC) section. COMPREHENSIVE METABOLIC STAT 01/15/2019 9:34 Invasive duct al Results for this PANEL AM CDT carcinoma of procedure are i n breast, female, the results left (HCC) section. IP CONSULT TO Routine 01/13/2019 GASTROENTEROLOGY ED CONSULT Routine 12/29/2018 DIABETES/ENDOCRINOLOGY IR PORT PLACEMENT Routine 12/23/2018 11:43 Invasive ductal Res ults for this AM CDT carcinoma of procedure are i n breast, female, the results left (HCC) section. POC GLUCOSE Routine 12/23/2018 8:47 Results for this AM CDT procedure are i n the results section. after 12/20/2018 Results Thyroid stimulating hormone (12/09/2019 10:17 AM CDT) Pathologist Sig nature TSH 3.55 0.27 - 4.20 uIU/mL [facility] Specimen Blood Performing Organization Address City/State/Zipcode Phone Number [facility] [address] [place], [place] [address] [address] Hemoglobin A1c (12/09/2019 10:17 AM CDT)Only the most recent of2 resultswithin the time period is included. Hemoglobin A1C 5.8 (H) 4.0 - 5.6 % [facility] Comment: HOSPITAL HbA1c cutoffs for diagnosing diabetes: 4.0% - 5.6% = normal 5.7% - 6.4% = increased risk for diabetes (prediabetes )9 >=6.5% = diabetes9 Goals for glycemic control (ADA 2016) < 7.0% Target for non adults with diabetes. More or less stringent targets may be appropriate for individual patients. <7.5% Target for Children and adolescents with type 1 diabetes. Specimen Blood Performing Organization Address City/[facility]/Zipcode Phone Number [facility] [address] [place], [place] [address] [address] Lipid panel (12/09/2019 10:17 AM CDT) Cholesterol 121 <200 mg/dL [facility] Triglycerides 91 <150 mg/dL [facility] HDL cholesterol 58 >40 mg/dL [facility] LDL cholesterol 53Comment: Result <100 mg/dL [place] obtained by direct [facility] LDL measurement [facility] Lipid panel [facility] interpretation Comment: [facility] Total Cholesterol (mg/dL) [facility] [place] <200 Desirable 200-239 Borderline-high >=240 High Triglycerides (mg/dL) <150 Normal 150-199 Borderline-high 200-499 High >=500 Very high HDL Cholesterol (mg/dL) <40 Low (male) <40 Low (female) LDL Cholesterol (mg/dL) <100 Optimal 100-129 Near or above optimal 130-159 Borderline-high 160-189 High >=190 Very high Risk Catergories that modify LDL goals. Risk Catergories LDL goal (mg/d L) CHD and CHD risk equivalent <100 (10-year risk >20%) Multiple (2+) risk factors <130 (10-year risk =<20%) 0-1 risk factors <160 (<10-year risk) Defining levels of lipids in metabolic syndrome Triglycerides >=150 mg/dL HDL Cholesterol Men <40 mg /dL Women <40 mg/ dL Non-HDL cholesterol is a second target for therapy in persons with high triglycerides (>=200 mg/dL) Specimen Blood Performing Organization Address City/[facility]/Zipcode Phone Number [facility] [address] [place] [address] [phone] [address] Estimated GFR (12/09/2019 9:05 AM CDT)Only the most recent of23 resultswithin the time period is included. [facility] Estimated GFR 66 mL/min/1.73 [facility] Comment: m2 HOSPITAL Catergory Units Interpretation G1 >=90 Normal or high G2 60-89 Mildly decreased G3a 45-59 Mildly to moderately decreas ed G3b 30-44 Moderately to severely decre ased G4 15-29 Severely decreased G5 <15 Kidney failure The eGFR was calculated using the Chronic Kidney Disea se Epidemiology Collaboration (CKD-EPI) equation. Interpretation is based on recommendations of the National Kidney Foundation-Kidney Disease Outcomes Jassi lity Initiative (NKF-KDOQI) published in 2014. Specimen Performing Organization Address City/[facility]/Zipcode Phone Number [facility] [address] [place], [place] [address] [address] CBC with platelet and differential (12/09/2019 9:05 AM CDT)Only the most recent of19 resultswithin the time period is included. Pathologist [facility] WBC 8.15 4.50 - 11.00 [facility] k/uL [facility] RBC 3.54 (L) 4.20 - 5.50 [facility] m/uL [facility] HGB 8.9 (L) 12.0 - 16.0 [facility] g/dL [facility] HCT 28.4 (L) 37.0 - 47.0 % [facility] MCV 80.2 (L) 82.0 - 100.0 [facility] MCH 25.1 (L) 27.0 - 34.0 pg [facility] MCHC 31.3 31.0 - 37.0 [facility] g/dL [facility] RDW - SD 44.0 37.0 - 55.0 fL [facility] MPV 9.8 8.8 - 13.2 fL [facility] Platelet count 343 150 - 400 k/uL [facility] Nucleated RBC 0.00 /100 WBC [facility] Neutrophils 70.0 (H) 39.0 - 69.0 % [facility] Lymphocytes 19.9 (L) 25.0 - 45.0 % [facility] Monocytes 8.1 0.0 - 10.0 % [facility] Eosinophils 1.1 0.0 - 5.0 % [facility] Basophils 0.4 0.0 - 1.0 % [facility] Immature granulocytes 0.5Comment: 0.0 - 1.0 % [facility] "Immature [facility] granulocytes" (promyelocytes , myelocytes, metamyelocytes ) Specimen Blood Performing Organization Address City/[facility]ode Phone Number [facility] [address] [place] [address] [phone] [address] Magnesium level (12/09/2019 9:05 AM CDT)Only the most recent of12 resultswithin the time period is included. Pathologist Sig nature Magnesium 1.9 1.6 - 2.4 mg/dL [facility] L Specimen Blood Performing Organization Address City/[facility]/Zipcode Phone Number [facility] [address] [place] [address] [phone] [address] Comprehensive metabolic panel (12/09/2019 9:05 AM CDT)Only the most recent of19 resultswithin the time period is included. Sodium 128 (L) 135 - 148 [facility] mEq/L [facility] Potassium 3.7 3.5 - 5.0 [facility] mEq/L [facility] Chloride 88 (L) 98 - 112 [facility] mEq/L [facility] CO2 28 24 - 31 mEq/L [facility] Anion gap 12@ANIO 7 - 15 mEq/L [facility] BUN 12 8 - 23 mg/dL [facility] Creatinine 0.90 0.50 - 0.90 [facility] mg/dL [facility] Glucose 79 65 - 99 mg/dL [facility] Calcium 9.4 8.8 - 10.2 [facility] mg/dL [facility] Protein 6.8 6.3 - 8.3 [facility] Comment: g/dL HOSPITAL - 4.6-7.0 g/dL 1 week 4.4-7.6 g/dL 7 months-1year 5.1-7.3 g/dL 1-2 years 5.6-7.5 g/dL >3 years 6.0-8.0 g/dL 18-150 6.3-8.3 g/dL Albumin 3.3 (L) 3.5 - 5.0 [facility] g/dL [facility] A/G ratio 0.9 0.7 - 3.8 [facility] Alkaline phosphatase 110 (H) 35 - 104 U/L [facility] AST 39 (H) 10 - 35 U/L [facility] ALT 35 5 - 50 U/L [facility] Total bilirubin <0.2 0.0 - 1.2 [facility] mg/dL HOSPITAL Specimen Blood Performing Organization Address City/[facility]/Zipcode Phone Number [facility] [address] [place] [address] 2021 0 GENOMIC MEDICINE [facility] [address] [place] [address] XR Spine Scoliosos 2-3 Views (11/26/2019 12:52 PM CDT) Specimen Narrative Performed At This result has an attachment that is no t available. AP lateral scoliosis x-ray shows loss of vertebral height at thoracic 7 [facility] consistent with the patient's known history of recent compression deformity. She has severe lumbar degenerative scolio sis with L4-5 grade 1 spondylolisthesis with no evidence of any other acute changes when compared to prior MRI. Performing Organization Address City/[facility]/Zipcode Phone Number [facility] [address] [place] [address] MRI Thoracic Spine Wo Contrast (11/18/2019 8:41 AM CDT) Specimen Narrative Performed At This result has an attachment that is no t available. EXAMINATION: MRI THORACIC SPINE WO CONTRAST [facility] CLINICAL HISTORY: R93.89 Abnormal findin gs on diagnostic imaging of other specified body structures, abnormal bone Scan possible t7 fracture COMPARISON: Bone scan 10/21/2019 TECHNIQUE: Multiplanar multisequence non contrast enhanced examination was performed of the thoracic spine. FINDINGS: Evidence of mild recent compression defo rmity of the superior endplate of T7 with bone marrow edema and approximately 30% vertebral height loss. No retropulsion or spinal canal narrowing. Suspected mild chronic deformities of the superior endplate of T1 and T2. Mild right convex thoracic scoliosis. No cord signal abnormality. Patent spinal canal and neural foramina at all thoracic levels with no more than mild posterior disc bulge or protrusion identified. For example, there is mild posterior disc bulge and osteophytes at T12-L1. Large osseous hemangioma within T11. Multilevel facet hypertrophy within the lower thoracic spine. Suspected small right pleural effusion. IMPRESSION: Evidence of recent fracture involving th e superior endplate of T7 with mild vertebral height loss. No significant retropulsion or spinal canal narrowing. [facility]-[id number] Procedure Note Interface, Radiology Results Incoming - 11/18/2019 9:06 AM CDT EXAMINATION: MRI THORACIC SPINE WO CONTRAST CLINICAL HISTORY: R93.89 Abnormal findin gs on diagnostic imaging of other specified body structures, abnormal bone Scan possible t7 fracture COMPARISON: Bone scan 10/21/2019 TECHNIQUE: Multiplanar multisequence non contrast enhanced examination was performed of the thoracic spine. FINDINGS: Evidence of mild recent compression defo rmity of the superior endplate of T7 with bone marrow edema and approximately 30% vertebral height loss. No retropulsion or spinal canal narrowing. Suspected mild chronic deformities of the superior endplate of T1 and T2. Mild right convex thoracic scoli osis. No cord signal abnormality. Patent spinal canal and neural foramina at all thoracic levels with no more than mild posterior disc bulge or protrusion identified. For example, there is mild posterior disc bulge and osteophytes at T12-L1. Large osseous hemangioma within T11. Multilevel facet hypertrophy within the lower thoracic spine. Suspected small right pleural effusion. IMPRESSION: Evidence of recent fracture involving th e superior endplate of T7 with mild vertebral height loss. No significant retropulsion or spinal canal narrowing. [facility]-[id number] Performing Organization Address City/State/Zipcode Phone Number [facility] [address] [place] [address] NM Bone Scan Whole Body (10/21/2019 3:29 PM CDT) Specimen Narrative Performed At PROCEDURE: NM BONE SCAN [facility] IND[facility]: C50.912 Malignant neoplasm of unspecifie d site of left female breast, Breast Cancer. COMPARISON: CT abdomen 09/07/2019, chest x-ray 019, bone scan 11/16/2018 TECHNIQUE: The patient was injected with 25 millicurie s of [id number] intravenously, followed 3 hours lat er by whole-body scanning in the anterior and posterior p rojections. FINDINGS: Mild to moderate thoracolumbar levoscolios is with degenerative uptake throughout the lower lumbar spine. Old left-sided anterior rib fracture. Marked uptake in/adjacent to th e left humeral head is stable from the prior exam and c orresponds to old fracture, better seen on the recent chest x-ray. M ild degenerative uptake in the bilateral feet, right greater than left. Physiological renal excretion. The only new finding is mild uptake in a linear, horiz ontal fashion in T7, not quite included in the field-of-v iew of recent CT. IMPRESSION: No definite evidence of osseous metastatic disease. Ne w uptake in T7 suggests a subacute compression fracture, but could be degenerative. Metastatic disease is not highly suspect ed. [id number] Dictated and approved by chairman president and chief executive officer/fellow: Ra chapo Orlando M.D. I, Mack Medina, personally reviewed the images and r esident's/fellow's findings and agree with the final report. Procedure Note Interface, Radiology Results Incoming - 10/21/2019 4:15 PM CDT PROCEDURE: NM BONE SCAN WHOLE BODY INDICATION: C50.912 Malignant neoplasm of unspecified site of left female breast, Breast Cancer. COMPARISON: CT abdomen 09/07/2019, chest x-ray 06/04/2019, bone scan 11/16/2018 TECHNIQUE: The patient was injected with 25 millicuries of [id number] intravenously, followed 3 hours later by whole-body scanning in the anterior and posterior projections. FINDINGS: Mild to moderate thoracolumba r levoscoliosis with degenerative uptake throughout the lower lumbar spine. Old left-sided anterior rib fracture. Marked uptake in/adjacent to the left humeral head is stable from the prior exam and corresponds to old fracture, better seen on the recent chest x-ray. Mild degenerative uptake in the bilateral feet, right greater than left. Physiological renal excretion. The only new finding is mild uptake in a linear, horizontal fashion in T7, not quite included in the [id number] of recent CT. IMPRESSION: No definite evidence of osseous metastat ic disease. New uptake in T7 suggests a subacute compression fracture, but could be degenerative. Metastatic disease is not highly suspected. [id number] Dictated and approved by radiology resid ent/fellow: Huy Orlando M.D. I, Mack Medina, personally reviewed e images and resident's/fellow's findings and agree with the final report. Performing Organization Address City/[facility]/Zipcode Phone Number [place] [phone] Transfuse RBC (09/30/2019 5:09 PM CDT)Prepare RBC, 1 Units, Irradiated, Leukoreduced (09/30/2019 11:20 AM CDT) Product name Apheresis Red Cell SUNSPOT AS3 #1 [facility] Unit number [id number] [facility] Product code [id number] [facility] Dispense status Transfused [facility] Blood expiration date [id number] [facility] Blood type code 5100 [facility] Blood type O POSITIVE [facility] Compatibility Compatible [facility] Specimen Performing Organization Address City/[facility]/Zipcode Phone Number [facility] [address] [place] [address] [address] Type and screen (09/30/2019 11:20 AM CDT) Pathologist Sig nature ABO grouping O [facility] Rh type POS [facility] Antibody screen (gel) NEG [facility] Specimen Blood Performing Organization Address City/[facility]/Zipcode Phone Number [facility] [address] [place] [address] [phone] [address] Consult Gastroenterology (09/22/2019)Only the most recent of2 resultswithin the time period is included. Narrative Performed At This result has an attachment that is no t available. Transthoracic Echocardiogram Complete, (w Contrast, Strain and 3D if needed) (09/09/2019 3:02 PM CDT) Specimen Narrative Performed At [facility] Echo cardiography Report [id number] [facility] [address], [place] [address] Pat.Name: BRIAN YOON Pat.ID: [id number]Date: 09/09/2019 Refer.MD: EUGENIE BOWEN MD Exam Time: 1:31:00 PM Study Type:R outine Echo Height: 60in Weight: 134lb BSA: 1.58 m2 Ag e: 1955,64Y Sex: FEMALE BP: 137/78 HR: 77 bpm Sonogr phr: MAYTE Singh, RDCS Pat. Stat.:Outpatient Room: [address] Study Status:Final Echo Event ID:[id number] Order ID: [id number] Reason for Study:Breast Cancer; Chemo History / Clinical:Breast Cancer Procedures: 2D Echo, Colorflow Doppler, Strain Race: White SUMMARY: LV EF is normal. Estimated EF is 60-64%. RV systolic function is normal. Estimated PA systolic pressure is 28 mmH g, assuming a mean RAP of 5 mmHg. FINDINGS: LV: LV size is normal. Concentr ic left ventricular remodeling. Reduced average LV global longitudina l strain at -16%. LV EF is normal. Overall wall motion is normal. Estimated EF is 60-64%. RV: RV size is normal. RV systo lic function is normal. LA: LA size is normal. RA: RA size is normal. AO: Aortic root diameter is mil dly enlarged. ADRIENNE: No pericardial effusion. PLE: Pleural effusion is present . AV: No structural AV abnormalit ies noted. Mild aortic regurgitation. MV: Moderate mitral annular capo cification. PV: No structural PV abnormalit ies noted. TV: No structural TV abnormalit ies noted. Mild tricuspid regurgitation Hernández: Diastolic dysfunction Grade I (Mild): Impaired relaxation with normal LV filling pressures. Other: Estimated PA systolic pressu re is 28 mmHg, assuming a mean RAP of 5 mmHg. MEASUREMENTS: 2D Parasternal [place] Ao An 1.9 cm LVPWd 1.1 cm Ao Rtd 3.2 cm Index 2.1 cm/m2 LA Ds 3.2 cm IVSd 1.4 cm RWT 0.65 LVIDd 3.4 cm Index 2.2 cm/m2 LV Mass 139 g (87-12 9) LVIDs 1.3 cm LVM In dex 88 g/m LV%fs 62 % LVOT 1.7 cm LA Sng Plane LA Area 17 cm (8.8-23.4) LA Vol 43 ml Index 27 ml/m2 LA LngAx 5.7 cm RA Sng Plane RA Vol 22 ml Index 14 ml/m2 RA LngAx 4.4 cm RA Area 11 cm (8.3-1 9.5) LVOT LVOT Area 2.4 cm DOPPLER LVOT Stroke Vol LVOT TVI 22 cm HR 77 bpm LVOT LVOT SV 54 ml LVOT CO 4.1 l/min SVi 34 ml/m LVOT C I 2.6 l/m/m MMODE Tricuspid Valve TAPSE 2.1 cm Signed 09/10/2019 10:23 AM Shine Alejo M.D. Procedure Note Interface, Radiology Results In - 2019 10:23 AM CDT Echocardiography Report [id number] [address] Pat.Name: BRIAN YOON Pat.I D: [id number] .Date: 09/09/2019 Refer .MD: EUGENIE BOWEN MD Exam Time: 1:31:00 PM Study Type:Routine Echo Height: 60in Weigh t: 134lb BSA: 1.58 m2 Age: 1 1955,64Y Sex: FEMALE BP: 137/78 HR: 77 bpm Sonog rphr: MAYTE Singh, RDCS Pat. Stat.:Outpatient Room: [address] Study Status:Final Echo Event ID:[id number] Order ID: [id number] Reason for Study:Breast Cancer; Chemo History / Clinical:Breast Cancer Procedures: 2D Echo, Colorflow Doppler, Strain Race: White SUMMARY: LV EF is normal. Estimated EF is 60-64%. RV systolic function is normal. Estimated PA systolic pressure is 28 mmH g, assuming a mean RAP of 5 mmHg. FINDINGS: LV: LV size is normal. Concentric left ventricular remodeling. Reduced average LV global eddi gitudinal strain at -16%. LV EF is normal. Overall wall mo tion is normal. Estimated EF is 60-64%. RV: RV size is normal. RV systolic function is normal. LA: LA size is normal. RA: RA size is normal. AO: Aortic root diameter is mildly enlarged. ADRIENNE: No pericardial effusion. PLE: Pleural effusion is present. AV: No structural AV abnormalities noted. Mild aortic regurgitation. MV: Moderate mitral annular calcif ication. PV: No structural PV abnormalities noted. TV: No structural TV abnormalities noted. Mild tricuspid regurgitation Hernández: Diastolic dysfunction Grade I (Mild): Impaired relaxation with normal LV filling pressu res. Other: Estimated PA systolic pressure is 28 mmHg, assuming a mean RAP of 5 mmHg. MEASUREMENTS: 2D Parasternal [place] Ao An 1.9 cm LVPW d 1.1 cm Ao Rtd 3.2 cm Inde x 2.1 cm/m2 LA Ds 3.2 cm IVSd 1.4 cm RWT 0.65 LVIDd 3.4 cm Inde x 2.2 cm/m2 LV Mass 139 g (87-129) LVIDs 1.3 cm LVM Index 88 g/m LV%fs 62 % LVOT 1.7 cm LA Sng Plane LA Area 17 cm (8.8-23.4) L A Vol 43 ml Index 27 ml/m2 LA LngAx 5.7 cm RA Sng Plane RA Vol 22 ml Inde x 14 ml/m2 RA LngAx 4.4 cm RA Area 11 cm (8.3-19.5) LVOT LVOT Area 2.4 cm DOPPLER LVOT Stroke Vol LVOT TVI 22 cm HR 77 bpm LVOT LVOT SV 54 ml LVOT CO 4.1 l/min SVi 34 ml/m LVO T CI 2.6 l/m/m MMODE Tricuspid Valve TAPSE 2.1 cm Signed 09/10/2019 10:23 AM Shine Alejo M.D. Performing Organization Address City/State/Zipcode Phone Number [facility] [address] [place] [address] CT Abdomen W Contrast (09/07/2019 3:12 PM CDT) Specimen Narrative Performed At EXAMINATION: CT ABDOMEN W CONTRAST [facility] CLINICAL HISTORY: R10.9 Unspecified abdominal pain, abdominal pain abnormal xray TECHNIQUE:Multiple axial images of the abdomen were ob tained following intravenous administration of iodinated contrast. Sagi ttal and coronal computerized reformatted images were also obtained. All CT images were acquired using low-dose technique with automated exposure control. COMPARISON: None. FINDINGS: Abdomen: 1.Limited images to the lung bases demonstrates extens wyatt calcifications at the level of the mitral valve annulus . 2.No suspicious hepatic masses. Stable fat-containing lesion in the right hepatic dome anteriorly measures 7 mm may relate to a hamartoma. 3.The spleen, pancreas, adrenal glands and gallbladder are normal. No hydronephrosis. 4.Circumferential edema involving the wall of the seco nd segment duodenum in addition to a small amount of periduodenal edema. Incidental note is made of a small periampullary duodenal diverti culum. Mild mucosal enhancement involving a short se gment of the second portion duodenum. The findings are suggesti ve of an underlying inflammatory etiology possibly relating to post bulbar duodenitis. Correlation with endoscopy findings may be of benefit if there is mild luminal narrowing as well. 5.The portal vein, SMV, and splenic vein are patent. 6.Mild fluid and air filled distention o f the stomach. 7.Marked scoliosis of the lumbar spine. Osseous struct ures are demineralized with degenerative changes present. 8.The abdominal aorta is of normal caliber. No retrope ritoneal lymphadenopathy. IMPRESSION: 1.Luminal narrowing with circumferential wall thickeni ng involving the second segment duodenum in addition to periduodenal ed jayesh. The findings may relate to sequela of post bulbar duodenitis. There is mild air and fluid-filled distention of the stomach. Correlation with endoscopy findings may be of benefit. Incidental note is made of a small periampullary duodena l diverticulum. [facility]-[id number] Procedure Note [facility], Radiology Results Incoming - 09/07/2019 4:05 PM CDT EXAMINATION: CT ABDOMEN W CONTRAST CLINICAL HISTORY: R10.9 Unspecified abd ominal pain, abdominal pain abnormal xray TECHNIQUE:Multiple axial images of the a bdomen were obtained following intravenous administration of iodinated contrast. Sagittal and coronal computerized reformatted images were also obtained. All CT images were acquired using low-dose technique with automated exposure control. COMPARISON: None. FINDINGS: Abdomen: 1.Limited images to the lung bases demon strates extensive calcifications at the level of the mitral valve annulus. 2.No suspicious hepatic masses. Stable f at-containing lesion in the right hepatic dome anteriorly measures 7 mm may relate to a hamartoma. 3.The spleen, pancreas, adrenal glands a nd gallbladder are normal. No hydronephrosis. 4.Circumferential edema involving the wa ll of the second segment duodenum in addition to a small amount of periduodenal edema. Incidental note is made of a small periampullary duodenal diverticulum. Mild mucosal enhancement involving a short segment of the second portion duodenum. The finding s are suggestive of an underlying inflammatory etiology possibly relating to post bulbar duodenitis. Correlation with endoscopy findings may be of benefit if there is mild luminal narrowing as well. 5.The portal vein, SMV, and splenic vein are patent. 6.Mild fluid and air filled distention o f the stomach. 7.Marked scoliosis of the lumbar spine. Osseous structures are demineralized with degenerative changes present. 8.The abdominal aorta is of normal calib er. No retroperitoneal lymphadenopathy. IMPRESSION: 1.Luminal narrowing with circumferential wall thickening involving the second segment duodenum in addition to periduodenal edema. The findings may relate to sequela of post bulbar duodenitis. There is mild air and fluid-filled distention of the stomach. Correlation with endoscopy findings may be of benefit. Incidental note is made of a small periampullary duodenal diverticulum. [id number] Performing Organization Address City/State/Zipcode Phone Number [facility] [address] [place] [address] XR Abdomen 1 Vw (08/26/2019 1:31 PM ROLLOFF DRIVER) Specimen Narrative Performed At EXAMINATION: XR ABDOMEN 1 VW [facility] CLINICAL HISTORY: 64 years 1955 R10.9 Unspecified abdominal pain, stomach pain burning COMPARISON: 11/19/2018 IMPRESSION: 1.There is prominent gaseous distention of the stomach , slightly increased from 11/19/2018. Recommend CT scan for furthe r characterization of this finding. 2.The colon is diffusely prominent and air-filled. Thi s may be related to some ileus. No definite dilated air-f illed loops of small bowel. 3.No plain film evidence of free air. Herniorrhaphy ch anges over the pelvis. 4.Degenerative changes and levoscoliosis in the lumbar spine. [id number] Procedure Note Hm Interface, Radiology Results Incoming - 08/26/2019 2:27 PM ROLLOFF DRIVER EXAMINATION: XR ABDOMEN 1 VW CLINICAL HISTORY: 64 years 1955 R10 .9 Unspecified abdominal pain, stomach pain burning COMPARISON: 11/19/2018 IMPRESSION: 1.There is prominent gaseous distention of the stomach, slightly increased from 11/19/2018. Recommend CT scan for further characterization of this finding. 2.The colon is diffusely prominent and a ir-filled. This may be related to some ileus. No definite dilated air-filled loops of small bowel. 3.No plain film evidence of free air. He rniorrhaphy changes over the pelvis. 4.Degenerative changes and levoscoliosis in the lumbar spine. [id number] Performing Organization Address City/State/Zipcode Phone Number [facility] [address] [place] [address] POC glucose (06/18/2019 7:20 AM ROLLOFF DRIVER)Only the most recent of111 resultswithin the time period is included. Pathologist Sig nature POC glucose 140 (H)Comment: [facility] 65 - 99 mg/dL [facility] Notified RN HOSPITAL Specimen Performing Organization Address City/[facility]/Zipcode Phone Number [facility] AND [address] [place], [place] [address] GENOMIC MEDICINE [address] [address] Surgical pathology request (06/16/2019 10:59 AM ROLLOFF DRIVER) [facility] GENOMIC MEDICINE Surgical pathology See link below [facility] OF report for PDF Lab PATHOLOGY AND Report GENOMIC MEDICINE Result status This is Final [facility] OF Report for PATHOLOGY AND [id number] GENOMIC MEDICINE Specimen Performing Organization Address [facility] Phone Number [facility] AND [address] [place], [place] [address] GENOMIC MEDICINE Airway (06/16/2019 9:56 AM ROLLOFF DRIVER) Narrative Performed At Rajani Huggins CRNA 9 9:56 AM Airway Date/Time: 06/16/2019 9:56 AM Performed by: Rajani Huggins CRNA Authorized by: Johnny Lane MD Location: OR Urgency: Elective Difficult Airway: No Anesthesiologist: Johnny Lane MD Resident/STEAM FITTER SUPERVISOR/AA: Rajani Huggins CRNA Preoxygenated with 100% O2: Yes C-spine Precautions Maintained Throughou t: Yes Mask Ventilation: Not attempted Final Airway Type: Supraglottic airway Final LMA: I-Gel LMA Size: 4 Number of Attempts at Approach: 1 Atraumatic NM Inject Sulfur Colloid Lymph (06/16/2019 9:20 AM ROLLOFF DRIVER) Specimen Narrative Performed At Procedure: NM INJECT SULFUR COLLOID LY M[facility] Clinical History: C50.912 Malignant neoplasm of unsp ecified site of left female breast, Z17.1 Estrogen receptor negative s tatus (ER-), LEFT BRCA Technique: 1 millicurie of filtered [id number] colloid was inj ected intradermally in the left breast. No imaging was perfo rmed, as per physician request. Impression: Tracer was injected into the breast in preparation for sentinel lymph node surgery. [id number] Procedure Note Interface, Radiology Results Incoming - 06/16/2019 10:35 AM ROLLOFF DRIVER Procedure: NM INJECT SULFUR COLLOID LYMPH Clinical History: C50.912 Malignant yanick plasm of unspecified site of left female breast, Z17.1 Estrogen receptor negative status (ER-), LEFT BRCA Technique: 1 millicurie of filtered [id number] c olloid was injected intradermally in the left breast. No imaging was performed, as per physician request. Impression: Tracer was injected into the breast in p reparation for sentinel lymph node surgery. [facility]-[id number] Performing Organization Address City/State/Zipcode Phone Number [facility] [address] [place] [address] Obtain medical records (06/10/2019) Narrative Performed At This result has an attachment that is no t available. Consult Cardiology (06/09/2019) Narrative Performed At This result has an attachment that is no t available. Tangela Hutton MD 06/16/2019 6:47 PM Cardiology Consult Note Admission Date: 06/16/2019 Consult Date: 06/16/19 Reason for Consult HTN Requesting Provider Johnny Le MD History of Present Illness Brian Yoon is a 63 y.o. female Brian cortes a 63 y.o.femalewith history of hypertension, diabetes m ellitus type II, hyperlipidemia, chronic kidney disease who underwe nt left simple mastectomy and biopsy today. Patient remains st able without chest pain. 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 Social History Tobacco Use Smoking status: Never Smoker Smokeless tobacco: Never Used Substance and Sexual Activity Alcohol use: Not Currently Frequency: Never Drug use: Not Currently Sexual activity: Not Currently Past Surgical History: Procedure Laterality Date BASAL CELL CARCINOMA EXCISION ~2013 mohs left temporal area BRAIN SURGERY 05/2012 for stroke, no mass SECTION 1988 COLONOSCOPY 2015 normal, no polyps. HERNIA REPAIR ~2009 umbilical TONSILLECTOMY childhood Medications Prior to Admission Medication Sig Last Dose acetaminophen (TYLENOL ORAL) Take by mouth. 06/15/2019 at Unknown time pantoprazole (PROTONIX) 40 MG EC tablet Take 40 mg by mouth every morning. 06/15/2019 at Unknown time POTASSIUM ORAL Take by mouth. Past Week at Unknown time clotrimazole-betamethasone (LOTRISONE) 1-0.05 % cream Apply topically 2 (two) times a day for 30 days. 06/15/2019 at Unknown time labetalol (NORMODYNE) 200 MG tablet Take 200 mg by mouth 2 (two) times a day. 06/16/2019 at 0400 furosemide (LASIX) 40 mg tablet Take 40 mg by mouth 2 (two) times a day. Past Week at Unknown time linaGLIPtin (TRADJENTA) 5 mg tablet Take 5 mg by mouth daily with breakfast. 06/15/2019 at Unknown time letrozole (FEMARA) 2.5 mg chemo tablet TAKE 1 TABLET(2.5 MG) BY MOUTH DAILY Past Week at Unknown time ascorbate calcium (VITAMIN C ORAL) Take by mouth daily. 06/15/2019 at Unknown time atorvastatin (LIPITOR) 10 MG tablet Take 10 mg by mouth nightly. 06/15/2019 at Unknown time metFORMIN XR (GLUCOPHAGE-XR) 500 mg 24 hr tablet Take 1,000 mg by mouth 2 (two) times a day. 06/15/2019 at Unknown time Current Facility-Administered Medications Medication Dose Route Frequency Last Dose acetaminophen (TYLENOL) tablet 650 mg 650 mg oral Q6H PRN Or acetaminophen (TYLENOL) 650 mg/20.3 mL solution 650 mg 650 mg oral Q6H PRN atorvastatin (LIPITOR) tablet 10 mg 10 mg oral Nightly ciprofloxacin (CIPRO) IVPB 400 mg 400 mg intravenous BID dextrose 10 % infusion 40 mL/hr intravenous Continuous PRN dextrose 50% intravenous syringe 12.5 g intravenous Q20 Min PRN dextrose 50% intravenous syringe 25 g intravenous Q20 Min PRN diphenhydrAMINE (BENADRYL) tablet 25 mg 25 mg oral Q6H PRN [START ON 06/17/2019] enoxaparin (LOVENOX) syringe 40 mg 40 mg subcutaneous Daily at 0600 furosemide (LASIX) tablet 40 mg 40 mg oral BID glucagon injection 1 mg 1 mg intramuscular Q15 Min PRN HYDROcodone-acetaminophen (NORCO) 7.5-325 mg per tablet 1 tablet 1 tablet oral Q6H PRN 1 tablet at 06/16/19 17 53 insulin lispro (HumaLOG) injection (medium dose correction scale) 0-7 Units 0-7 Units subcutaneous TID with rajwinder ls 1 Units at 06/16/19 1753 labetalol (NORMODYNE) tablet 200 mg 200 mg oral BID lactated ringer's infusion 75 mL/hr intravenous Continuous 75 mL/hr at 06/16/19 1630 letrozole (FEMARA) chemo tablet 2.5 mg 2.5 mg oral Daily linaGLIPtin (TRADJENTA) tablet 5 mg 5 mg oral Daily with breakfast metFORMIN XR (GLUCOPHAGE-XR) 24 hr tablet 1,000 mg 1,000 mg oral BID morPHINE 2 mg/mL injection 1 mg 1 mg intravenous Q3H PRN morPHINE 4 mg/mL injection 2 mg 2 mg intravenous Q3H PRN 2 mg at 06/16/19 1626 ondansetron ODT (ZOFRAN-ODT) disintegrating tablet 4 mg 4 mg oral Q8H PRN Or ondansetron (ZOFRAN) injection 4 mg 4 mg intravenous Q8H PRN pantoprazole (PROTONIX) EC tablet 40 mg 40 mg oral QAM ramelteon (ROZEREM) tablet 8 mg 8 mg oral Nightly PRN Allergies Allergen Reactions Augmentin [Amoxicillin-Pot Clavulanate] Hives OBJECTIVE Reported Vitals BP: (120-191)/(56-82) 135/63 Pulse: [73-91] 91 Temp (24hrs), Av.1 F, Min:97.3 F, Max:99.4 F Resp: [11-20] 18 SpO2: 96 % O2 Flow Rate (L/min): 2 L/min O2 Delivery Method: None (Room air) , 152.4cm Weight: 73.7 kg (162 lb 8 oz) Pain Score: 7 Physical Exam General: Well developed, well nourished, alert and cooler room worker perative, and appears to be in no acute distress. HEENT: Normocephalic. Atraumatic. Pulm: Clear to auscultation and percussion without ral es, rhonchi, wheezing or diminished breath sounds. Cardiac: RRR. Normal S1 and S2. No S3, S4 or murmurs. Abdomen: Positive bowel sounds. Soft, nondistended, no ntender. Extremities: trace peripheral edema. Neurologic: A&Ox3 Labs/Radiology/Diagnostics Labs No results found for the last 24 hours. Imaging Procedure Component Value Units Date/Time NM Inject Sulfur Colloid Lymph [[id number]] Collected: 06/16/19 1032 Updated: 06/16/19 1035 Narrative: Procedure: NM INJECT SULFUR COLLOID LYMPH Clinical History: C50.912 Malignant neoplasm of unsp ecified site of left female breast, Z17.1 Estrogen receptor negativ e status (ER-), LEFT BRCA Technique: 1 millicurie of filtered [id number] colloid was inj ected intradermally in the left breast. No imaging was perfo rmed, as per physician request. Impression: Tracer was injected into the breast in preparation for sentinel lymph node surgery. [facility]-[id number] ASSESSMENT AND PLAN Brian Yoon is a 63 y.o. female Brian cortes a 63 y.o.femalewith history of hypertension, diabetes m ellitus type II, hyperlipidemia, chronic kidney disease who underwe nt left simple mastectomy and biopsy today. -Blood pressure stable -Cont on atorvastatin -Cont on lasix PO and labetalol Length of Stay: 0 days Procedure Note Tangela Hutton MD - 06/16/2019 6:13 P M ROLLOFF DRIVER Cardiology Consult Note Admission Date: 06/16/2019 Consult Date: 06/16/19 Reason for Consult HTN Requesting Provider Johnny Le MD History of Present Illness Brian Yoon is a 63 y.o. femal e Brian Lucas a 63 y.o.femalewith history of hypertension, diabetes mellitus type II, hyperlipidemia, chronic kidney disease who underwent left simple mastectomy and biopsy today. Patient rem ains stable without chest pain. 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 Social History Tobacco Use Smoking status: Never Smoker Smokeless tobacco: Never Used Substance and Sexual Activity Alcohol use: Not Currently Frequency: Never Drug use: Not Currently Sexual activity: Not Currently Past Surgical History: Procedure Laterality Date BASAL CELL CARCINOMA EXCISION ~2013 mohs left temporal area BRAIN SURGERY 05/2012 for stroke, no mass SECTION 1988 COLONOSCOPY 2015 normal, no polyps. HERNIA REPAIR ~2009 umbilical TONSILLECTOMY childhood Medications Prior to Admission Medication Sig Last Dose acetaminophen (TYLENOL ORAL) Take by mouth. 06/15/2019 at Unknown time pantoprazole (PROTONIX) 40 MG EC tablet Take 40 mg by mouth every morning. 06/15/2019 at Unknown time POTASSIUM ORAL Take by mouth. Past Week at Unknown time clotrimazole-betamethasone (LOTRISONE) 1-0.05 % cream Apply topically 2 (two) times a day for 30 days. 06/15/2019 at Unknown time labetalol (NORMODYNE) 200 MG tablet Take 200 mg by mouth 2 (two) times a day. 06/16/2019 at 0400 furosemide (LASIX) 40 mg tablet Take 40 mg by mouth 2 (two) times a day. Past Week at Unknown time linaGLIPtin (TRADJENTA) 5 mg tablet Take 5 mg by mouth daily with breakfast. 06/15/2019 at Unknown time letrozole (FEMARA) 2.5 mg chemo tablet TAKE 1 TABLET(2.5 MG) BY MOUTH DAILY Past Week at Unknown time ascorbate calcium (VITAMIN C ORAL) Take by mouth daily. 06/15/2019 at Unknown time atorvastatin (LIPITOR) 10 MG tablet Take 10 mg by mouth nightly. 06/15/2019 at Unknown time metFORMIN XR (GLUCOPHAGE-XR) 500 mg 24 hr tablet Take 1,000 mg by mouth 2 (two) times a day. 06/15/2019 at Unknown time Current Facility-Administered Medication s Medication Dose Route Frequency Last Dos e acetaminophen (TYLENOL) tablet 650 mg 650 mg oral Q6H PRN Or acetaminophen (TYLENOL) 650 mg/20.3 mL solution 650 mg 650 mg oral Q6H PRN atorvastatin (LIPITOR) tablet 10 mg 10 mg oral Nightly ciprofloxacin (CIPRO) IVPB 400 mg 400 mg intravenous BID dextrose 10 % infusion 40 mL/hr intravenous Continuous PRN dextrose 50% intravenous syringe 12.5 g intravenous Q20 Min PRN dextrose 50% intravenous syringe 25 g intravenous Q20 Min PRN diphenhydrAMINE (BENADRYL) tablet 25 mg 25 mg oral Q6H PRN [START ON 06/17/2019] enoxaparin (LOVENOX) syringe 40 mg 40 mg subcutaneous Daily at 0600 furosemide (LASIX) tablet 40 mg 40 mg oral BID glucagon injection 1 mg 1 mg intramuscular Q15 Min PRN HYDROcodone-acetaminophen (NORCO) 7.5-325 mg per tablet 1 tablet 1 tablet oral Q6H PRN 1 tablet at 06/16/19 1753 insulin lispro (HumaLOG) injection (medium dose correction scale) 0-7 Units 0-7 Units subcutaneous TID with meals 1 Units at 06/16/19 1753 labetalol (NORMODYNE) tablet 200 mg 200 mg oral BID lactated ringer's infusion 75 mL/hr intravenous Continuous 75 mL/hr at 06/16/19 1630 letrozole (FEMARA) chemo tablet 2.5 mg 2.5 mg oral Daily linaGLIPtin (TRADJENTA) tablet 5 mg 5 mg oral Daily with breakfast metFORMIN XR (GLUCOPHAGE-XR) 24 hr tablet 1,000 mg 1,000 mg oral BID morPHINE 2 mg/mL injection 1 mg 1 mg intravenous Q3H PRN morPHINE 4 mg/mL injection 2 mg 2 mg intravenous Q3H PRN 2 mg at 06/16/19 1626 ondansetron ODT (ZOFRAN-ODT) disintegrating tablet 4 mg 4 mg oral Q8H PRN Or ondansetron (ZOFRAN) injection 4 mg 4 mg intravenous Q8H PRN pantoprazole (PROTONIX) EC tablet 40 mg 40 mg oral QAM ramelteon (ROZEREM) tablet 8 mg 8 mg oral Nightly PRN Allergies Allergen Reactions Augmentin [Amoxicillin-Pot Clavulanate] Hives OBJECTIVE Reported Vitals BP: (120-191)/(56-82) 135/63 Pulse: [73-91] 91 Temp (24hrs), Av.1 F, Min:97.3 F, Max:99.4 F Resp: [11-20] 18 SpO2: 96 % O2 Flow Rate (L/min): 2 L/min O2 Delivery Method: None (Room air) , 152.4cm Weight: 73.7 kg (162 lb 8 oz) Pain Score: 7 Physical Exam General: Well developed, well nourished, alert and cooperative, and appears to be in no acute distress. HEENT: Normocephalic. Atraumatic. Pulm: Clear to auscultation and percussi on without rales, rhonchi, wheezing or diminished breath sounds. Cardiac: RRR. Normal S1 and S2. No S3, S 4 or murmurs. Abdomen: Positive bowel sounds. Soft, no ndistended, nontender. Extremities: trace peripheral edema. Neurologic: A&Ox3 Labs/Radiology/Diagnostics Labs No results found for the last 24 zhane rs. Imaging Procedure Component Value Units Date/Ti me NM Inject Sulfur Colloid Lymph [[id number]] Collected: 06/16/19 1032 Updated: 06/16/19 1035 Narrative: Procedure: NM INJECT SULFUR COLLOID LY MPH Clinical History: C50.912 Malignant yanick plasm of unspecified site of left female breast, Z17.1 Estrogen receptor negative status (ER-), LEFT BRCA Technique: 1 millicurie of filtered [id number] c olloid was injected intradermally in the left breast. No imaging was performed, as per physician request. Impression: Tracer was injected into the breast in p reparation for sentinel lymph node surgery. [id number] ASSESSMENT AND PLAN Brian Yoon is a 63 y.o. femal e Brian Lucas a 63 y.o.femalewith history of hypertension, diabetes mellitus type II, hyperlipidemia, chronic kidney disease who underwent left simple mastectomy and biopsy today. -Blood pressure stable -Cont on atorvastatin -Cont on lasix PO and labetalol Length of Stay: 0 days XR Chest 2 Vw (06/04/2019 12:43 PM ROLLOFF DRIVER) Specimen Narrative Performed At EXAMINATION: [facility]: 63 years Female Z01.818 Encounter for other preprocedural examination, preop COMPARISON: June 09 IMPRESSION: Cardiomediastinal silhouette is unchange d. Atelectasis in the left lower lobe. The right lung is clear A chest port projects over the right upper hemithorax with the catheter terminating in superior vena cava . [id number] Procedure Note Hm Interface, Radiology Results Incoming - 06/04/2019 1:00 PM ROLLOFF DRIVER EXAMINATION: XR CHEST 2 VW CLINICAL HISTORY: 63 years Female Z01.8 18 Encounter for other preprocedural examination, preop COMPARISON: June 09 IMPRESSION: Cardiomediastinal silhouette is unchange d. Atelectasis in the left lower lobe. The right lung is clear A chest port projects over the right upp er hemithorax with the catheter terminating in superior vena cava . [id number] Performing Organization Address City/State/Zipcode Phone Number [facility] [address] [place] [address] ECG Pre/Post Op (06/04/2019 12:09 PM ROLLOFF DRIVER) Pathologist Sig nature Ventricular rate 79 [facility] Atrial rate 79 [facility] FL interval 168 [facility] QRSD interval 130 [facility] QT interval 412 [facility] QTC interval 472 [facility] P axis 1 43 [facility] QRS axis 1 -17 [facility] T wave axis 11 [facility] EKG impression Normal sinus rhythm-Right bu ndle branch block-Moderate voltage criteria for LVH, may be normal variant-Abnormal ECG-In automated comparison with ECG of 04-APR-2019 22:21,-No significant change was found [facility] - Specimen Narrative Performed At This result has an attachment that is no t available. Performing Organization Address City/[facility]/Zipcode Phone Number [facility] [address] [place] [address] CBC hemogram (06/04/2019 11:49 AM ROLLOFF DRIVER) Pathologist Sig nature WBC 13.43 (H) 4.50 - 11.00 k/uL [facility] RBC 4.09 (L) 4.20 - 5.50 m/uL [facility] HGB 9.3 (L) 12.0 - 16.0 g/dL [facility] HCT 30.4 (L) 37.0 - 47.0 % [facility] MCV 74.3 (L) 82.0 - 100.0 fL [facility] MCH 22.7 (L) 27.0 - 34.0 pg [facility] MCHC 30.6 (L) 31.0 - 37.0 g/dL [facility] RDW - SD 45.1 37.0 - 55.0 fL [facility] MPV 9.2 8.8 - 13.2 fL [facility] Platelet count 486 (H) 150 - 400 k/uL [facility] Nucleated RBC 0.00 /100 WBC [facility] Specimen Blood Performing Organization Address City/[facility]/Zipcode Phone Number [facility]OLOGY AND [address] [place], [place] [address] GENOMIC MEDICINE [place] [id number] [place] [address] US Breast Complete Bilateral (05/12/2019 10:23 AM ROLLOFF DRIVER) Specimen Narrative Performed At PROCEDURE: MAMMO BREAST DIAGNOSTIC TOMOSYNTHESIS BIL ERA, US BREAST HM [facility] COMPLETE BILATERAL Computer aided detection was utilized for the interpre tation of the diagnostic mammography. HISTORY: History of a diagnosis of left breast cancer on chemotherapy.C50.912 Malignant neoplasm of unspecified site of left female breast, C50.912 COMPARISON: 10/07/2018, a left breast ultrasound-guided biopsy reveals invasive duct cancer. DENSITY: There are scattered areas of fi broglandular density. FINDINGS: Comparing to previous exam 09/23/2018, the ma mmographically detected mass in the left breast has shrunken down fro m a transverse width of 3.8 cm to 2.6 cm and then a width of about 2. 6 cm. On the left MLO view the cephalocaudal dimension has shrunken down from 4.2 cm to 3.7 cm. No change in the scattered microcalcific ation seen bilaterally. Bilateral breast ultrasound complete. Scanning in all 4 quadrants and subareolar regions acc omplished with close mold maker helper supervision. In the right breast no sign of any suspicious mass or distortion. On the left breast there is the retroareolar irregular ly marginated hypoechoic mass measuring from 3.2 cm x 2.8 cm x 1.6 c m. Some the mass appears to have some anechoic features suggestive of p osttreatment necrosis and/or fibrosis. The ultrasound measurements are much less traumatic then the changes seen on mammography. No sign of any new mass. IMPRESSION: Known malignancy on the le ft. RECOMMENDATION: Follow-up with oncology and surgery. BI-RADS 6: Known malignancy from previou s biopsy. This facility is accredited by the [employer] for Mammography. A negative x-ray report should not delay biopsy if a d ominant or clinically suspicious mass is present. Not all cance rs are identified by x-ray. [id number] Performing Organization Address City/State/Zipcode Phone Number [facility] [address] [place] [address] Mammo Breast Diagnostic Tomosynthesis Bilateral (05/12/2019 9:50 AM ROLLOFF DRIVER) Specimen Narrative Performed At PROCEDURE: MAMMO BREAST DIAGNOSTIC TOMOSYNTHESIS BILAT ERA, US BREAST [facility] COMPLETE BILATERAL Computer aided detection was utilized for the interpre tation of the diagnostic mammography. HISTORY: History of a diagnosis of left breast cancer on chemotherapy.C50.912 Malignant neoplasm of unspecified site of left female breast, C50.912 COMPARISON: 10/07/2018, a left breast ultrasound-guided biopsy reveals invasive duct cancer. DENSITY: There are scattered areas of fi broglandular density. FINDINGS: Comparing to previous exam 09/23/2018, the ma mmographically detected mass in the left breast has shrunken down fro m a transverse width of 3.8 cm to 2.6 cm and then a width of about 2. 6 cm. On the left MLO view the cephalocaudal dimension has shrunken down from 4.2 cm to 3.7 cm. No change in the scattered microcalcific ation seen bilaterally. Bilateral breast ultrasound complete. Scanning in all 4 quadrants and subareolar regions acc omplished with close mold maker helper supervision. In the right breast no sign of any suspicious mass or distortion. On the left breast there is the retroareolar irregular ly marginated hypoechoic mass measuring from 3.2 cm x 2.8 cm x 1.6 c m. Some the mass appears to have some anechoic features suggestive of p osttreatment necrosis and/or fibrosis. The ultrasound measurements are much less traumatic then the changes seen on mammography. No sign of any new mass. IMPRESSION: Known malignancy on the le ft. RECOMMENDATION: Follow-up with oncology and surgery. BI-RADS 6: Known malignancy from previou s biopsy. This facility is accredited by the [employer] for Mammography. A negative x-ray report should not delay biopsy if a d ominant or clinically suspicious mass is present. Not all cance rs are identified by x-ray. [id number] Performing Organization Address [facility]/[employer] Phone Number [facility] [address] [place] [address] XR Knee 3 Vw Left (05/06/2019 10:37 AM ROLLOFF DRIVER) Specimen Narrative Performed At This result has an attachment that is no t available. 3 views of the left knee reveal mild generalized degenerative changes. HM [facility] There is slight narrowing of the joint spaces. There is generalized osteopenia. There are osteophytes and loose osteocho ndral fragments noted particularly on the lateral aspect of the patella bila terally. Performing Organization Address [facility]/[employer] Phone Number [facility] [address] [place] [address] XR Leg Length Evaluation (05/06/2019 10:37 AM ROLLOFF DRIVER) Specimen Narrative Performed At This result has an attachment that is no t available. Long leg films reveal mild to moderate degenerative changes with moderate HM [facility] narrowing of the medial joint spaces of both knees. The left upper tibia shows irregularity noted in the subchondral region of the upper tibial plateau. An outside MRI has been reviewed and this s tudy indicates a nondisplaced fracture of the upper portion of the tibi a. Performing Organization Address [facility] Cent[facility] Phone Number [facility] [address] [place] [address] XR Knee 1 Or 2 Vw Left (04/23/2019 8:50 PM CDT) Specimen Narrative Performed At EXAMINATION: XR KNEE 1 OR 2 VW LEFT [facility] CLINICAL HISTORY: Known lateral tibial plateau fracture following up COMPARISON: April 04, 2019 IMPRESSION: 1. Redemonstrated is a nondisplaced fracture of the la teral tibial plateau with evidence of sclerosis indicative of early healing. There is no new fracture or dislocation. 2. Moderate patellofemoral compartment predominant tri compartmental osteoarthritis. 3. Mild disuse osteoporosis is noted. [id number] Procedure Note Interface, Radiology Results Incoming - 04/23/2019 9:02 PM CDT EXAMINATION: XR KNEE 1 OR 2 VW LEFT CLINICAL HISTORY: Known lateral tibial plateau fracture following up COMPARISON: April 04, 2019 IMPRESSION: 1. Redemonstrated is a nondisplaced frac ture of the lateral tibial plateau with evidence of sclerosis indicative of early healing. There is no new fracture or dislocation. 2. Moderate patellofemoral compartment p redominant tricompartmental osteoarthritis. 3. Mild disuse osteoporosis is noted. [id number] Performing Organization Address City/[facility] Cent[facility]ode Phone Number [facility] [address] [place] [phone] Basic metabolic panel (04/22/2019 4:00 AM CDT)Only the most recent of4 results within the time period is included. Pathologist Sig nature Sodium 128 (L) 135 - 148 mEq/L [facility] L Potassium 3.5 3.5 - 5.0 mEq/L [facility] L Chloride 90 (L) 98 - 112 mEq/L [facility] CO2 23 (L) 24 - 31 mEq/L [facility] Anion gap 15@ANIO 7 - 15 mEq/L [facility] BUN 14 8 - 23 mg/dL [facility] Creatinine 0.83 0.50 - 0.90 mg/dL [facility] Glucose 132 (H) 65 - 99 mg/dL [facility] Calcium 10.0 8.8 - 10.2 mg/dL [facility] AL Specimen Plasma specimen Performing Organization Address City/[facility] Cent[facility]ode Phone Number [facility] [address] [place] [phone] GENOMIC MEDICINE [address] [address] B natriuretic peptide (04/20/2019 6:15 AM CDT) Pathologist Sig nature BNP 23 0 - 100 pg/mL [facility] Specimen Blood Performing Organization Address City/[facility]/Zipcode Phone Number [facility] [address] [place], [place] [address] [address] Gastrointestinal panel (04/17/2019 7:56 PM CDT) Gastrointestinal panel Negative for all pathogens tested: SUNSPOT Negative for Salmonella [facility] Negative for Campylobacter [facility] Negative for Diarrheagenic E coli/Shigella Negative for Shiga-like toxin-producing E coli Negative for Plesiomonas shigelloides Negative for Yersinia enterocolitica Negative for Vibrio species Negative for Clostridium difficile (Toxin A/B) Negative for Cryptosporidium Negative for Giardia lamblia Negative for Cyclospora cayeteanensis Negative for Entamoeba histolytica Negative for Adenovirus F 40/41 Negative for Astrovirus Negative for Norovirus GI/GII Negative for Rotavirus A Negative for Sapovirus Negative for Clostridium difficile toxin Negative for E coli 0157 This real-time PCR assay detects the presence of nucle ic acids (RNA or DNA) for the gastrointestinal pathogens listed. A result of "Not-detected" does not exclude the possib ility of the presence of one or more pathogens at concentrat ions less than the detectable limits of the assay. Comment: Specimen Information Specimen Source: Stool Specimen Site: Nonpreserved Specimen Stool - Nonpreserved Performing Organization Address City/[facility]/Zipcode Phone Number [facility] [address] [place], [place] [address] [address] MRI Knee Left Wo Contrast (04/05/2019 9:20 PM CDT) Specimen Narrative Performed At EXAMINATION: MRI KNEE WO CONTRAST LEFT RADIANT CLINICAL HISTORY: Knee pain initial exam, s p fall TECHNIQUE: Multiplanar multisequence MR imaging of t he knee was performed without contrast. COMPARISON: Left knee radiographs 04/04 FINDINGS: 1. Cruciate ligaments: Intact. 2. Collateral ligaments: Intact. 3. Medial Meniscus: Medial meniscus inta ct. 4. Medial Compartment Cartilage: Multifocal deep and n ear full-thickness chondrosis along the medial femoral condyle central we ightbearing margin without subchondral edema. Mild partial thickness berhane drosis matching along the medial tibial plateau central weightbearing margin. 5. Lateral Meniscus: Lateral meniscus in tact. 6. Lateral Compartment Cartilage: Multifocal deep and near full-thickness partial-thickness chondrosis along the lateral femoral condyle central weightbearing margin wit hout subchondral edema. 7. Patellofemoral Compartment:Full-thickness chondrosi s throughout the central medial facet extending to the median ridge wit h multifocal partial-thickness chondrosis along the lateral facet. Full-thickness chondrosis throughout the trochlear groo ve extending to the medial and lateral facets with subcho ndral edema/cystic changes 8. Extensor mechanism: Mild tendinopathy of the distal quadriceps tendon. The patellar tendon is intact.. 9. Effusion: Moderate sized knee effusion with mild sy novitis. No discrete loose body. 10. Bone marrow: Nondisplaced transverse oblique impac tion fracture of the lateral tibial plateau with extension to the subch ondral plate and no chondral defect. Patchy distal femur and proximal tibial red marrow conversion. 11. Soft tissues: Extensive subcutaneous edema through out the knee without organized fluid collection. Feathery edema ancelmo ng the vastus lateralis and vastus medialis may represent low-grade strains. The visualized course of the tibial and prince yann nerves are normal. IMPRESSION: 1.Nondisplaced impaction fracture of the lateral tibial plateau. 2.Moderate patellofemoral predominant tricompartmental left knee chondrosis. 3.Moderate-sized knee effusion with mild synovitis. 4.Other findings as described above. [id number] Procedure Note Interface, Radiology Results Incoming - 04/05/2019 10:23 PM CDT EXAMINATION: MRI KNEE WO CONTRAST LEFT CLINICAL HISTORY: Knee pain initial ex am, s p fall TECHNIQUE: Multiplanar multisequence MR imaging of the knee was performed without contrast. COMPARISON: Left knee radiographs 2018 FINDINGS: 1. Cruciate ligaments: Intact. 2. Collateral ligaments: Intact. 3. Medial Meniscus: Medial meniscus inta ct. 4. Medial Compartment Cartilage: Multifo capo deep and near full-thickness chondrosis along the medial femoral condyle central weightbearing margin without subchondral edema. Mild partial thickness chondrosis matching along the medial tibial plateau central weightbearing margin. 5. Lateral Meniscus: Lateral meniscus in tact. 6. Lateral Compartment Cartilage: Multif ocal deep and near full-thickness partial-thickness chondrosis along the lateral femoral condyle central weightbearing margin without subchondral edema. 7. Patellofemoral Compartment:Full-thick ness chondrosis throughout the central medial facet extending to the median ridge with multifocal partial-thickness chondrosis along the lateral facet. Full-thickness chondrosis throughout the trochlear groove extending to the medial and lateral face ts with subchondral edema/cystic changes 8. Extensor mechanism: Mild tendinopathy of the distal quadriceps tendon. The patellar tendon is intact.. 9. Effusion: Moderate sized knee effusio n with mild synovitis. No discrete loose body. 10. Bone marrow: Nondisplaced transverse oblique impaction fracture of the lateral tibial plateau with extension to the subchondral plate and no chondral defect. Patchy distal femur and proximal tibial red marrow conversion. 11. Soft tissues: Extensive subcutaneous edema throughout the knee without organized fluid collection. Feathery edema along the vastus lateralis and vastus medialis may represent low-grade strains. The visualized course of the tibial and peroneal nerves are normal. IMPRESSION: 1.Nondisplaced impaction fracture of the lateral tibial plateau. 2.Moderate patellofemoral predominant tr icompartmental left knee chondrosis. 3.Moderate-sized knee effusion with mild synovitis. 4.Other findings as described above. [id number] Performing Organization Address City/State/Zipcode Phone Number [facility] [address] [place] [address] MRI Pelvis Wo Contrast (04/05/2019 9:00 PM CDT) Specimen Narrative Performed At This result has an attachment that is no t available. EXAMINATION: MRI PELVIS WO CONTRAST ADIEL CLINICAL HISTORY: Left hip pain TECHNIQUE: Multiplanar multisequence MR images of the pelvis and left hip were obtained without contrast. The lack of intravenous contrast reduces the sensitivity of the examination. COMPARISON: CT on pelvis 11/19/2018. FINDINGS: No acute bone marrow signal abnormality sacrum, pelvis or proximal femora, specifically evidence for fracture, osteonecrosis or stress changes healed right inferior and superior pubic rami fractures. Mu ltilevel lower lumbar degenerative disc disease and facet osteoarthritis is present. Mild symmetric atrophy throughout the pe lvic girdle musculature. Mild tendinopathy of the left gluteus minimus and medius insertion without tear. The common hamstring tendon origin, adductor and iliopsoas tendons are grossly intact. No significant greater trochanteric bursitis. Subcutane ous edema tracks superficial to the gluteal aponeurosis, nonspecific. The course of the sciatic nerves are normal in appearance without piriformis asymmetry. Within the left hip joint there is a sma ll effusion without discrete loose body. The ligamentum teres is intact. There is mild partial-thickness chondrosis within the superior acetabulum without discrete full-thickness chondrosis or significant subchondral edema. There is a suspected nondisplaced labral tear at the 2 o'clock position (series 12 image 2). The urinary bladder gallo are mildly thi ckened. The uterus is normal in appearance. The left ovary contains multiple T1 hyperintense subcentimeter circular structures, nonspecific. No lymphadenopathy. IMPRESSION: 1. No MR evidence for acute osseous abnormality. 2. Small nondisplaced left anterosuperio r acetabular tear at the 2 o'clock position. 3. Minimal left hip joint chondrosis with a trace smal l joint effusion. 4. Mild left gluteus minimus and medius tendinopathy. 5. Mild wall thickening of the urinary b ladder, correlate urinalysis if concern for cystitis. 4. Left ovarian subcentimeter T1 hyperin tense structures are nonspecific, consider follow-up ultrasound for further evaluation. 5. Other findings as described above. [id number] Procedure Note [facility], Radiology Results Incoming - 04/05/2019 10:46 PM CDT EXAMINATION: MRI PELVIS WO CONTRAST CLINICAL HISTORY: Left hip pain TECHNIQUE: Multiplanar multisequence MR images of the pelvis and left hip were obtained without contrast. The lack of intravenous contrast reduces the sensitivity of the examination. COMPARISON: CT on pelvis 11/19/2018. FINDINGS: No acute bone marrow signal abnormality sacrum, pelvis or proximal femora, specifically evidence for fracture, osteonecrosis or stress changes healed right inferior and superior pubic rami fractures. Multilevel lower lumbar degenerative disc disease and facet osteoarthritis is present. Mild symmetric atrophy throughout the pe lvic girdle musculature. Mild tendinopathy of the left gluteus minimus and medius insertion without tear. The common hamstring tendon origin, adductor and iliopsoas tendons are grossly intact. No significant greater trochanteric bursitis. Subcutane ous edema tracks superficial to the gluteal aponeurosis, nonspecific. The course of the sciatic nerves are normal in appearance without piriformis asymmetry. Within the left hip joint there is a sma ll effusion without discrete loose body. The ligamentum teres is intact. There is mild partial-thickness chondrosis within the superior acetabulum without discrete full-thickness chondrosis or significant subchondral edema. There is a suspected nondisplaced labral tear at the 2 o'clock position (series 12 image 2). The urinary bladder gallo are mildly thi ckened. The uterus is normal in appearance. The left ovary contains multiple T1 hyperintense subcentimeter circular structures, nonspecific. No lymphadenopathy. IMPRESSION: 1. No MR evidence for acute osseous abno rmality. 2. Small nondisplaced left anterosuperio r acetabular tear at the 2 o'clock position. 3. Minimal left hip joint chondrosis wit h a trace small joint effusion. 4. Mild left gluteus minimus and medius tendinopathy. 5. Mild wall thickening of the urinary b ladder, correlate urinalysis if concern for cystitis. 4. Left ovarian subcentimeter T1 hyperin tense structures are nonspecific, consider follow-up ultrasound for further evaluation. 5. Other findings as described above. [id number] Performing Organization Address City/[facility]ercome Phone Number [facility] [address] [place] [address] Blood culture, aerobic & anaerobic (04/05/2019 12:55 AM CDT)Only the most recent of2 resultswithin the time period is included. Blood culture No growth after 5 days of incubation. NIRMAL LOPEZ [facility] isolate Comment: HOSPITAL Specimen Information Specimen Source: Blood Specimen Site: Arm, right Specimen Blood - Arm, right Performing Organization Address City/[facility] Centercode Phone Number [facility] AND [address] [place] [phone] GENOMIC MEDICINE [facility] [address] [place] [phone] ECG ED Preliminary Interpretation - Not an Order (04/04/2019 11:16 PM CDT) Narrative Performed At Daquan Park MD 9 10:59 AM ECG ED Preliminary Interpretation - Not an Order Performed by: Daquan Park MD Authorized by: Daquan Park MD ECG reviewed by ED Physician in the abse nce of a foreign trade teacher: no Interpretation: Interpretation: abnormal Rate: ECG rate: 90 ECG rate assessment: normal Rhythm: Rhythm: sinus rhythm Ectopy: Ectopy: aberrant QRS: QRS axis: Left QRS intervals: Normal Conduction: Conduction: abnormal Abnormal conduction: complete RBBB ST segments: ST segments: Normal T waves: T waves: normal Us duplex venous lower extremity (04/04/2019 10:50 PM CDT)Only the most recent of2 resultswithin the time period is included. Specimen Narrative Performed At [facility] Lower Extr emity Venous Report [id number] [facility], [place] [address] Pat.Name: BRIAN YOON Pat.ID: [id number]Date: 04/04/2019 Refer.MD: PHYSICIAN, EMERGENCY, MD Exam Time: 10:33:00 PM Study Type:LE Venous Height: 60in Weight: 173lb BSA: 1.76 m2 Ag e: 1955,63Y Sex: FEMALE Sonogrphr: MAYTE Mendiola, RDCS, RVT Pat. Stat.:Inpatient Room: ED-34 Tape Vol: KG, CPT - 4: 33788 Echo Event ID:[id number] Order ID: [id number] Reason for Study:Left leg swelling and p ain, DVT suspected. Procedures: Colorflow, Grayscale/2D, Pul sed wave Doppler Race: C SUMMARY: DUPLEX SCAN OBSERVATIONS Deep Veins Superficial Veins Right Left Right Left GSV (prox) Normal CFV Normal Normal (above knee) Femoral Normal GSV (dist) Normal Profunda Normal (below knee) Popliteal Normal PT (prox) Normal SSV Normal PT (dist) Normal Peroneal Normal Gastrocs Normal LEFT: There is normal compressibility with no evidence of echogenic material noted within the lumen of the v isualized veins. Colorflow and Doppler signals are normal. PRELIMINARY FINDINGS 1. No evidence of venous thrombosis of t he visualized veins. PHYSICIAN INTERPRETATION Venous examination of the left lower ext remity and right groin demonstrated no evidence of venous throm bosis in the visualized veins. Normal compressibility and augmentation of all veins visualized. FINDINGS: Signed 04/05/2019 01:30 AM Bora Cha MD, RPVI Procedure Note Interface, Radiology Results In - 2018 1:30 AM CDT [facility] Lower Extremity Veno us Report [address] [place] [address] Pat.Name: BRIAN YOON Pat.I D: [id number] St.Date: 04/04/2019 Refer .MD: PHYSICIAN, EMERGENCY, MD Exam Time: 10:33:00 PM Study Type:LE Venous Height: 60in Weigh t: 173lb BSA: 1.76 m2 Age: 1 1955,63Y Sex: FEMALE Sonogrphr: MAYTE Mendiola, RDCS, RVT Pat. Stat.:Inpatient Room: ED-34 Tape Vol: KG, CPT - 4: 19248 Echo Event ID:[id number] Order ID: [id number] Reason for Study:Left leg swelling and p ain, DVT suspected. Procedures: Colorflow, Grayscale/2D, Pul sed wave Doppler Race: C SUMMARY: DUPLEX SCAN OBSERVATIONS Deep Veins Superficial Veins Right Left Right Left GSV (prox) Normal CFV Normal Normal (above knee) Femoral Normal GSV (dist) Normal Profunda Normal (below knee) Popliteal Normal PT (prox) Normal SSV Normal PT (dist) Normal Peroneal Normal Gastrocs Normal LEFT: There is normal compressibility w ith no evidence of echogenic material noted within the lumen of the v isualized veins. Colorflow and Doppler signals are normal. PRELIMINARY FINDINGS 1. No evidence of venous thrombosis of t he visualized veins. PHYSICIAN INTERPRETATION Venous examination of the left lower ext remity and right groin demonstrated no evidence of venous throm bosis in the visualized veins. Normal compressibility and augmentation of all veins visualized. FINDINGS: Signed 04/05/2019 01:30 AM Bora Cha MD, RPVI Performing Organization Address [facility] Centercome Phone Number [facility] [phone] [place] [address] ECG 12 lead (04/04/2019 10:21 PM CDT) Pathologist Sig nature Ventricular rate 90 [facility] Atrial rate 90 [facility] FL interval 158 [facility] QRSD interval 134 [facility] QT interval 396 [facility] QTC interval 484 [facility] P axis 1 54 [facility] QRS axis 1 -2 [facility] T wave axis 13 [facility] EKG impression Normal sinus rhythm [facility] with sinus arrhythmia-Right bundle branch block-Abnormal ECG-In automated comparison with ECG of 04-JUL-2015 17:03,-Right bundle branch block is now present- Specimen Narrative Performed At This result has an attachment that is no t available. Performing Organization Address [facility] Phone Number [facility] [address] [place] [address] XR Knee 4+ Vw Left (04/04/2019 9:56 PM CDT) Specimen Narrative Performed At EXAMINATION: XR KNEE 4 VW LEFT RADIANT CLINICAL HISTORY: Knee pain initial exam COMPARISON: None. IMPRESSION: No evidence of acute left knee fracture, dislocation, or significant joint effusion. Mild degenerative changes. Bone minera lization is normal. Soft tissues are unremarkable. [id number] Procedure Note Hm Interface, Radiology Results Incoming - 04/04/2019 10:03 PM CDT EXAMINATION: XR KNEE 4 VW LEFT CLINICAL HISTORY: Knee pain initial ex am COMPARISON: None. IMPRESSION: No evidence of acute left knee fracture, dislocation, or significant joint effusion. Mild degenerative changes. Bone mineralization is normal. Soft tissues are unremarkable. [id number] Performing Organization Address City/[facility]/Zipcode Phone Number [facility] [address] [place] [phone] Gram stain (02/26/2019 1:24 PM CDT) Gram stain result Rare WBC's [facility] Few Gram positive rods HOSPITAL Comment: Specimen Information Specimen Source: Urine Specimen Site: Random void Specimen Urine - Random void Performing Organization Address [facility]ercome Phone Number [facility]OLOG[facility] AND [address] [place] [address] [phone] [address] Urine culture (02/26/2019 1:24 PM CDT) Urine culture Mixed bryn 10-4 col/cc [facility] isolate Comment: HOSPITAL Specimen Information Specimen Source: Urine Specimen Site: Random void Specimen Urine - Random void Performing Organization Address [facility]ercome Phone Number [facility] AND [address] [place] [address] [phone] [address] Urinalysis screen and microscopy, with reflex to culture (02/26/2019 1:00 PM CDT) Specimen site Random void [facility] Color, UA Yellow [facility] Appearance, UA Clear [facility] Specific gravity, 1.003 1.001 - 1.035 [facility] pH, UA 7.5 5.0 - 8.5 [facility] Protein, UA Negative Negative [facility] Glucose, UA Negative Negative [facility] Ketones, UA Negative Negative [facility] Bilirubin, UA Negative Negative [facility] Blood, UA Negative Negative [facility] Nitrite, UA Negative Negative [facility] Urobilinogen, UA <2.0 <2.0 [facility] Leukocyte esterase, Trace (A) Negative [facility] UA OUTPATIENT CENTER WBC, UA 1 0 - 4 /HPF [facility] RBC, UA None seen 0 - 5 /HPF [facility] Bacteria, UA None seen None seen [facility] Yeast, UA None seen [facility] Yeast with None seen [facility] pseudohyphae, [facility] OUTPATIENT CENTER Specimen Urine Performing Organization Address City/State/Zipcode Phone Number [facility]OLOGY AND [address] [place], [place] [address] GENOMIC MEDICINE [facility] [address] [place] [address] ED Consult Diabetes/Endocrinology (12/29/2018) Narrative Performed At This result has an attachment that is no t available. IR Port Placement (12/23/2018 11:43 AM CDT) Specimen Narrative Performed At EXAMINATION: IR PORT PLACEMENT HM [facility]IANT CLINICAL HISTORY: C50.912 Malignant neoplasm of unsp ecified site of left female breast, new chemo start COMPARISON: None. PROCEDURE: Venous port placement Procedural Personnel Attending physician(s): Keagan whelan MD Pre-procedure diagnosis: Breast cancer Post-procedure diagnosis: Same Indication: Administration of chemothera py Additional clinical history: None Complications: No immediate complication s. IMPRESSION: Insertion of right-sided power-injectabl e single-lumen tunneled chest port, with catheter tip in the expected location of the cavoatrial junction. Plan: The port may be used immediately. PROCEDURE SUMMARY: - Venous access with ultrasound guidance - Tunneled port insertion under fluorosc opic guidance - Additional procedure(s): None Pre-procedure History and imaging of central venous ac cess reviewed (QCDR): Yes Consent: Informed consent for the procedure including risks, benefits and alternatives was obtained and time-out was perform ed prior to the procedure. Preparation (MIPS): The site was prepared and draped u sing all elements of maximal sterile barrier technique including sterile gloves, sterile gown, cap, mask, large sterile sheet, sterile ultrasou nd probe cover, hand hygiene and cutaneous antisepsis with 2% chlorhexidine. Medical reason for site preparation exce ption (MIPS): Not applicable Anesthesia/sedation Level of anesthesia/sedation: Moderate s edation (conscious sedation) Anesthesia/sedation administered by: Independent train ed observer under attending supervision with continuous monitoring of th e patient's level of consciousness and physiologic status Total intra-service sedation time (minut es): 26 Access Local anesthesia was administered. The vessel was sono graphically evaluated and determined to be patent. Real time ultra sound was used to visualize needle entry into the vessel a nd a permanent image was stored. Vein accessed: Internal jugular vein Access technique: Micropuncture set with 21 gauge needle Port placement An incision was made at the upper chest, a pocket was created, and the catheter was tunneled subcutaneously to the venous acc ess site and trimmed to appropriate length. The port was inserted i nto the pocket and the catheter was advanced via a peel-eldon y sheath into the vein under fluoroscopic guidance. The port was not sutured into the pocket. Catheter tip location was flu oroscopically verified and a permanent image was store d. Port placed: [employer] SmartPort Catheter size (Bel[place]ian): 8 Catheter flush: Heparin (100 units/mL) Closure The access site and incision were closed and sterile d ressing(s) were applied. Access site closure technique: Tissue ad hesive Incision closure technique: Absorbable s uture and tissue adhesive Patient discharged from procedure suite with device accessed: No Contrast Contrast agent: None Contrast volume (mL): 0 Radiation Dose Reference air kerma (mGy): 7 Additional Details Additional description of procedure: Non e Equipment details: None Specimens removed: None Estimated blood loss (mL): Less than 10 Standardized report: [id number] [id number] Procedure Note Hm Interface, Radiology Results Incoming - 12/23/2018 3:02 PM CDT EXAMINATION: IR PORT PLACEMENT CLINICAL HISTORY: C50.912 Malignant yanick plasm of unspecified site of left female breast, new chemo start COMPARISON: None. PROCEDURE: Venous port placement Procedural Personnel Attending physician(s): Keagan whelan MD Pre-procedure diagnosis: Breast cancer Post-procedure diagnosis: Same Indication: Administration of chemothera py Additional clinical history: None Complications: No immediate complication s. IMPRESSION: Insertion of right-sided po wer-injectable single-lumen tunneled chest port, with catheter tip in the expected location of the cavoatrial junction. Plan: The port may be used immediately. PROCEDURE SUMMARY: - Venous access with ultrasound guidance - Tunneled port insertion under fluorosc opic guidance - Additional procedure(s): None Pre-procedure History and imaging of central venous ac cess reviewed (QCDR): Yes Consent: Informed consent for the proced ure including risks, benefits and alternatives was obtained and time-out was performed prior to the procedure. Preparation (MIPS): The site was prepare d and draped using all elements of maximal sterile barrier technique including sterile gloves, sterile gown, cap, mask, large sterile sheet, sterile ultrasound probe cover, hand hygiene and cutaneous antisepsis with 2% chlorhexidine. Medical reason for site preparation exce ption (MIPS): Not applicable Anesthesia/sedation Level of anesthesia/sedation: Moderate s edation (conscious sedation) Anesthesia/sedation administered by: Ind ependent trained observer under attending supervision with continuous monitoring of the patient's level of consciousness and physiologic status Total intra-service sedation time (minut es): 26 Access Local anesthesia was administered. The v essel was sonographically evaluated and determined to be patent. Real time ultrasound was used to visualize needle entry into the vessel and a permanent image was stored. Vein accessed: Internal jugular vein Access technique: Micropuncture set with 21 gauge needle Port placement An incision was made at the upper chest, a pocket was created, and the catheter was tunneled subcutaneously to the venous access site and trimmed to appropriate length. The port was inserted into the pocket and the catheter was advanced via a peel-away sheath into the vein under fluoroscopic guidance. The port was not sutured into the pocket. Catheter tip location was fluoroscopically verified and a permanent image was stored. Port placed: [employer] SmartPort Catheter size ([place]ian): 8 Catheter flush: Heparin (100 units/mL) Closure The access site and incision were closed and sterile dressing(s) were applied. Access site closure technique: Tissue ad hesive Incision closure technique: Absorbable s uture and tissue adhesive Patient discharged from procedure suite with device accessed: No Contrast Contrast agent: None Contrast volume (mL): 0 Radiation Dose Reference air kerma (mGy): 7 Additional Details Additional description of procedure: Non e Equipment details: None Specimens removed: None Estimated blood loss (mL): Less than 10 Standardized report: [id number] Performing Organization Address City/State/Zipcode Phone Number [facility] [address] [place] [address] after 12/20/2018 Insurance Payer Benefit Plan / Subscriber ID Effective Dates Phone Addre ss Type Group HUMANA MEDICARE HUMANA MEDICARE xxxxxxxxx 2018-Present PPO PPO/PFFS/ERS [facility] (Work) [id number] Advance Directives For more information, please contact: [phone] Type Date Recorded Patient Communications Billing Analyst Explanati on Advance Directives, Living Will 04/05/2019 12:11 AM and Medical Power of Bone Density Technician Code Status Date Activated Date Inactivated Comments Full Code 06/16/2019 4:29 PM 06/18/2019 2:35 PM Code Status decision reached by: Patient
--- OUTSIDE RECORDS SUMMARY | 2019-12-21 23:09 | XMS REPORT | Continuity of Care Document ---
:1955 Author Organization [facility] t Address [address] [place] [address] Dr. [address]. [address] [place] [address] Care Team Providers Name Role Phone Davi Rey MD Primary Care Physician Sagrario Bautista Attending Clinician Skinny LOVE Attending Clinician Unavailable Melissa Bowen MD Attending Clinician Krissy GALO Attending Clinician Myriam WONG, Roderick Attending Clinician Unavailable Shelly [facility] Attending Clinician Unavailable Biju CAMPBELL Attending Clinician Unavailable Krystina SUE, RKely Attending Clinician Kevin WONG Attending Clinician Unavailable Zheng [facility] Attending Clinician Unavailable Alex RN Attending Clinician Unavailable Moe WONG, M Attending Clinician Unavailable Provider Attending Clinician Paco Núñez MD Attending Clinician Erlin Aldrich [facility] Attending Clinician Unavailable Doctor Unassigned, Name Attending Clinician Unavailable Skinny WONG Attending Clinician Unavailable Maame CAMPBELL Attending Clinician Unavailable Andrade GALO PKely Attending Clinician Shaquille Lane MD Attending Clinician Jessica Marshall NP Attending Clinician Cory Cordero MD Attending Clinician Constantine CAMPBELL Attending Clinician Unavailable Cook RN, Vone Attending Clinician Unavailable Tawana WONG Attending Clinician Unavailable Adarsh GALO Attending Clinician Carolynn Nielsen MD Attending Clinician Nikko GALO Attending Clinician Vineet Park MD Attending Clinician Jazmine GALO Attending Clinician Renay Smith MD Attending Clinician Delisa Smith MD [facility] Attending Clinician Unavailable Giorgi RN Attending Clinician Unavailable Cleo RN Attending Clinician Unavailable Rola WONG Attending Clinician Unavailable ANDRADE Admitting Clinician Unavailable ADARSH Admitting Clinician Unavailable JAZMINE Admitting Clinician Unavailable Payers Payer Name Policy Type Policy Number Effective Date Expiration Source Date HUMANA xxxxxxxxx 2018 [facility] MEDICAREHUMANA 00:00:00 [employer] MEDICARE PPO/PFFS/ERS [id number] Problems Condition Condition Condition Status Onset Resolution Last Treating Co mments Source Name Details Category Date Date Treatment Clinician Date Iron Iron Disease Active 2020-0 [facility] deficiency deficiency 4-14 Me [facility] anemia anemia 00:00: st 00 Balance Balance Disease Active 2020-0 [facility] problems problems 4-14 Method i 00:00: st 00 Weakness Weakness Disease Active 2020-0 [place] 4-14 [facility]: st 00 Acute knee Acute knee Disease Active 2020-0 [place] pain pain 4-14 [facility] 00:00: st 00 Hypokalemi Hypokalemi Disease Active 2020-0 [place] a a 2-06 [facility] 00:00: st 00 Preoperati Preoperati Disease Active 2020-0 Overview : [facility] ve ve 1-19 Nuclear [facility] clearance clearance 00:00: stress st dr Anni Hutton 00 test 04/2019 no perfusion defect Echo 65% EF Carotid duplex ;minimal thickenni ng H/O H/O Disease Active 2020-0 [facility] echocardio echocardio 1-19 Me [facility] gram 2018 gram 2018 00:00: st EF 65 % EF 65 % 00 Hypomagnes Hypomagnes Disease Active 2019- [place] emia emia 1-08 Method[facility] 00:00: st 00 Tibial Tibial Disease Active 2018-06 [facility] plateau plateau 0-15 [facility] fracture, fracture, 00:00: st left left 00 Hyponatrem Hyponatrem Disease Active 2018-06 [facility] [place] ia ia 0-07 Methodi 00:00: st 00 Internal Internal Disease Active 2018-06 [place] derangemen derangemen 0-06 Me th[facility] t of left t of left 00:00: st knee knee 00 Iron Iron Disease Active [facility] deficiency deficiency 6-12 Me thodi 00:00: st 00 Numbness Numbness Disease Active [place] and and 6-11 [facility] tingling tingling 00:00: st of both of both 00 legs legs 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[facility] carcinoma carcinoma 00:00: st of breast, of breast, 00 female, female, left left Anemia of Anemia of Disease Active [facility] ston chronic chronic 4-16 [facility] disease disease 00:00: st 00 Hx of Hx of Disease Active [facility] endoscopy endoscopy 10-13 Meth melvina 2 to GI 2 to GI 00:00: st bleed 2 to bleed 2 to 00 ibuprofen ibuprofen in 2016 in 2016 Anxiety Anxiety Disease Active [facility] and and 09-22 [facility] depression depression 00:00: st 00 Swelling Swelling Disease Active [place] of lower of lower 09-22 Method i extremity extremity 00:00: st 00 Gait Gait Disease Active [facility] abnormalit abnormalit 09-22 Me [facility] y y 00:00: st 00 Uses Uses Disease Active [facility] walker walker 09-22 Methodi 00:00: st 00 Severe Severe Disease Active [facility] obesity obesity 09-22 [facility] (BMI (BMI 00:00: st 35.0-39.9) 35.0-39.9) 00 with with comorbidit comorbidit y y Diabetes Diabetes Disease Active [place] mellitus mellitus 09-21 Method i 00:00: st 00 Hyperlipid Hyperlipid Disease Active [facility] [place] emia emia 09-21 Methodi 00:00: st 00 Hypertensi Hypertensi Disease Active [facility] [place] on 09-21 [facility] 00:00: st 00 Sleep Sleep Disease Active Overview: [place] apnea apnea 09-21 with out Methodi 00:00: cpap st 00 Osteoarthr Osteoarthr Disease Active [place] itis itis 09-21 Methodi 00:00: st 00 GERD GERD Disease Active [facility] (gastroeso (gastroeso 09-21 Va odi phageal phageal 00:00: st reflux reflux 00 disease) disease) Brown's Brown's Disease Active [facility] palsy palsy 09-21 Methodi 00:00: st 00 Family Family Disease Active [facility] history of history of 09-21 Va early CAD early CAD 00:00: st BROTHER BROTHER 00 Status Status Disease Active [facility] post brain post brain 09-21 [facility] surgery: surgery: 00:00: st tumor 2012 tumor 2012 00 S/P S/P Disease Active [facility] colonoscop colonoscop 09-21 Va y with y with 00:00: st polypectom polypectom 00 y 2016 y 2016 Basal cell Basal cell Disease Active [place] carcinoma carcinoma 09-21 Meth melvina 00:00: st 00 H/O hernia H/O hernia Disease Active [place] repair repair 09-21 Methodi 00:00: st 00 Idiopathic Idiopathic Disease Active [place] scoliosis scoliosis 09-21 Meth melvina 00:00: st 00 History of History of Disease Active [place] cataract cataract 09-21 Method i surgery surgery 00:00: st b/l b/l 00 Stage 3 Stage 3 Disease Active [facility] chronic chronic 09-21 [facility] kidney kidney 00:00: st disease disease 00 Allergies, Adverse Reactions, Alerts Allergy Allergy Status Severity Reaction(s) Onset Inactive Treating Comm ents Source Name Type Date Date Clinician Amoxicil Propensi Active Hives Jessicato n sonia-Pot ty to 01-30 Methodi Clavulan adverse 00:00: st ate reaction 00 s to drug Social History Social Habit Start Date Stop Date Quantity Comments Source History [facility] Meth odist Alcohol Std Drinks History [facility] odist Alcohol Binge Sex Assigned At [facility] ethodist Exposure to Not sure [facility] Metho dist SARS-CoV-2 (event) Alcohol intake 2019-10-12 2019-10-12 [facility]finding[facility] History SDMN 2018-09-21 2018-09-21 1 [facility] Alcohol Frequency 00:00:00 00:00:00 Smoking Status Start Date Stop Date Source Never smoker [facility] t Medications Ordered Filled Start Stop Current Ordering Indication Dosage Frequency Signature Comments Components Source Medication Medication Date Date Medication? Clinician (SIG) Name Name ondansetron 2020-0 Yes Invasive TAKE ONE [facility] (ZOFRAN) 8 - ductal (1) [facility] MG tablet 00:00: carcinoma TABLET(S) st 00 of breast, BY MOUTH female, EVERY left (HCC) EIGHT HOURS NEEDED FOR NAUSEA AND VOMITING. ondansetron 2020-0 2020- No Invasive 8mg Q8H Take 1 [facility] (Zofran) 8 12-19- ductal tablet (8 M ethodi MG tablet 00:00: 00:00 carcinoma mg total) st 00 :00 of breast, by mouth female, every 8 left (HCC) (eight) hours as needed for nausea or vomiting. metFORMIN 2020-0 Yes 1000mg Q.5D Take 1,000 [facility] XR 6-11 mg by [facility] (GLUCOPHAGE 12:11: mouth 2 st -XR) 500 mg 06 (two) 24 hr times a tablet day. atorvastati 2020-0 Yes 10mg QD Take 10 mg [facility] n (LIPITOR) 6-11 by mouth Meth melvina 10 MG 12:11: nightly. st tablet 06 ascorbate 2020-0 Yes QD Take by [place] calcium 6-11 mouth [facility] (VITAMIN C 12:11: daily. st ORAL) 06 furosemide 2020-0 Yes 40mg Q.5D Take 40 mg [place] (LASIX) 40 6-11 by mouth 2 Met hodi mg tablet 12:11: (two) st 06 times a day. POTASSIUM 2020-0 Yes Take by [place] ORAL 6-11 mouth. Methodi 12:11: st 06 DULoxetine 2020-0 2020- Yes 30mg QD Take 1 [place] (CYMBALTA) 6- 10-09 capsule Metho di 30 MG 00:00: 23:59 ([address] capsule 00 :00 total) by mouth daily for 120 days. Tradjenta 5 2020-0 Yes TAKE ONE [place] mg tablet 6- (1) Method[facility] 00:00: TABLET(S) st 00 BY MOUTH ONCE A DAY WITH BREAKFAST. traMADoL 2020-0 2020- Yes acute pain 50mg Q4H Take 1 [facility] (ULTRAM) 50 11-29 06- tablet (50 M ethodi mg tablet 00:00: 23:59 mg total) st 00 :00 by mouth every 4 (four) hours as needed for moderate pain for up to 25 days .acute pain. DULoxetine 2019- No 60mg QD Take 1 [place] (Cymbalta) 11-28- capsule Metho di 60 MG 00:00: 00:00 ([address] capsule 00 :00 total) by mouth daily. traMADoL 2019- No acute pain 50mg Q6H Take 1 [facility] (Ultram) 50 11-28- tablet (50 M ethodi mg tablet 00:00: 23:59 mg total) st 00 :00 by mouth every 6 (six) hours as needed for moderate pain for up to 5 days .acute pain. DULoxetine 2019- No Reactive 60mg QD Take 2 [facility] (Cymbalta) 11-25 depression capsules Methodi 30 MG 00:00: 00:00 ([address] capsule 00 :00 total) by mouth daily for 90 days. 2 tab daily for depression LORAZepam 2019- No To be [place] (Ativan) 11-15- taken on Method i 0.5 MG 00:00: 23:[address] tablet 00 :00 the MRI 30 minutes before procedure. traMADoL 2019- No chronic chronic [place] (Ultram) 50 5-13 05-23 pain pain. Take M ethodi mg tablet 00:00: 23:[address] 00 :00 by mouth every 6 hours as needed for pain traMADoL 2019-2019- No chronic 50mg Q6H Take 1 Natalia ston (Ultram) 50 4-23 05-13 pain tablet (50 M ethodi mg tablet 00:00: 00:00 mg total) st 00 :00 by mouth every 6 (six) hours as needed for moderate pain for up to 30 days .acute pain, chronic pain. DULoxetine 2019- No Reactive 2 tab [place] (Cymbalta) 10-11 05-29 depression daily for Methodi 30 MG 00:00: 00:[address] capsule 00 :00 OLANZapine 2019-0 2020- No 5mg QD Take 1 [place] (ZyPREXA) 5 4-02 04-05 tablet (5 Me thodi MG tablet 00:00: 23:59 mg total) st 00 :00 by mouth nightly for 3 days. To help with nausea potassium 2019- 2020- No Hypokalemia 20meq Q.[id number] [facility] chloride 20 3-12 -12 [id number] M ethodi mEq in 100 12:00: 13:[address] mL IVPB 00 :00 (FOR CENTRAL LINE ONLY) magnesium 2019- 2020- No Hypomagnese 2g [facility] sulfate 2 3-06 01- guilherme Methodi g/50 mL 11:30: 13:39 st IVPB 00 :00 (premix) potassium 2019-2019- No Hypokalemia 40meq [facility] chloride 3-06 01-12 [facility] (K-DUR) CR 11:30: 13:38 st tablet 40 00 :00 mEq potassium 2019- Yes 20meq Q.5D Take 1 [place] chloride 3-12 tablet (20 Metho di (K-DUR) 20 00:00: mEq total) s t MEQ CR 00 by mouth 2 tablet (two) times a day. potassium 2019- No Hypokalemia 40meq [facility] chloride -26 08- [facility] (K-DUR) CR 10:00: 10:41 st tablet 40 00 :00 mEq magnesium 2019- 2020- No Hypomagnese 2g [facility] sulfate 2 -26 08- guilherme Method[facility] g/50 mL 09:45: 12:16 st IVPB 00 :00 (premix) HYDROcodone 2020- No chronic 1{tbl} Q6H Take 1 [facility] -acetaminop 08-26-28 pain tablet by Me thodi hen (NORCO) 00:00: 23:[address] 10-325 mg 00 :00 every 6 per tablet (six) hours as needed for moderate pain for up to 30 days .chronic pain. Max Daily Amount: 4 tablets potassium 2019-0 2020- No Hypokalemia 20meq Q.[id number] [facility] chloride 20 2-20 02-20 [id number] M ethodi mEq in 100 12:00: 13:[address] mL IVPB 00 :00 (FOR CENTRAL LINE ONLY) potassium 2020-0 2020- No Hypokalemia 40meq [facility] chloride 2-20 02-20 [facility] (K-DUR) CR 11:15: 11:35 st tablet 40 00 :00 mEq magnesium 2020-0 2020- No Hypomagnese 2g [facility] sulfate 2 2-20 02-20 guilherme Method[facility] g/50 mL 11:15: 16:19 st IVPB 00 :00 (premix) potassium 2020-0 2020- No Hypokalemia 40meq [facility] chloride 2-13 02-13 [facility] (KAYCIEL) 11:30: 13:14 st 20 mEq/15 00 :00 mL solution 40 mEq magnesium 2020-0 2020- No Hypomagnese 2g [facility] sulfate 2 2-13 02-13 guilherme Method[facility] g/50 mL 11:30: 14:10 st IVPB 00 :00 (premix) magnesium 2020-0 Yes 200mg QD Take 200 [facility] ston oxide 200 2-07 mg by [facility] mg 00:00: mouth st magnesium 00 daily. tablet potassium 2020-0 2020- No 20meq Q2D Take 20 [place] ston chloride 2-07 03-12 mEq by Method[facility] (KLOR-CON) 00:00: 00:[address] 20 mEq 00 :00 every packet other day. magnesium 2020-0 2020- No Hypomagnese 2g [facility] sulfate 2 2-06 02-06 guilherme Method[facility] g/50 mL 11:00: 14:09 st IVPB 00 :00 (premix) DULoxetine 2019-0 2020- No 30mg QD Take 1 [place] (CYMBALTA) 07-30 04-14 capsule Metho di 30 MG 00:00: 00:00 ([address] capsule 00 :00 total) by mouth daily. potassium 2020-0 2020- No Hypokalemia 20meq Q.[id number] [facility] chloride 20 1-30 -30 [id number] M ethodi mEq in 100 10:00: 11:[address] mL IVPB 00 :00 (FOR CENTRAL LINE ONLY) magnesium 2020-0 2020- No Hypomagnese 2g [facility] sulfate 2 1-30 -30 guilherme Method[facility] g/50 mL 09:45: 12:25 st IVPB 00 :00 (premix) pantoprazol 2019-0 2020- No 40mg QD Take 40 mg [facility] e 07-23-24 by mouth [facility] (PROTONIX) 15:42: 00:[address] 40 MG EC 20 :00 morning. tablet pantoprazol Yes TAKE ONE [place] e 24 (1) [facility] (PROTONIX) 00:00: TABLET(S) st 40 MG EC 00 BY MOUTH tablet EVERY MORNING ON AN EMPTY STOMACH. HYDROcodone 2020- No chronic 1{tbl} Q6H Take 1 [facility] -acetaminop 07-22 pain tablet by Me russell hen (NORCO) 00:00: 23:[address] 10-325 mg 00 :00 every 6 per tablet (six) hours as needed for moderate pain for up to 30 days .chronic pain. Max Daily Amount: 4 tablets prochlorper 2019-2019- No 10mg Q6H Take 1 Natalia deborahn azine 07-1212 tablet (10 [facility] (COMPAZINE) 00:00: 23:59 mg total) st 10 MG 00 :00 by mouth tablet every 6 (six) hours as needed for nausea or vomiting for up to 30 days. magnesium 2019- No Hypomagnese 1g [facility] sulfate 07-08 guilherme Methodi 1g/100mL 12:00: 13:30 st D5W IVPB 00 :00 (premix) linaGLIPtin 2019- 2020- No 5mg QD Take 5 mg [facility] (TRADJENTA) 07-06 by mouth Met hodi 5 mg tablet 09:54: 00:[address] 32 :00 breakfast. linaGLIPtin 2019- 2020- No 5mg QD Take 1 [facility] cabreran (TRADJENTA) 07-06 tablet (5 Me thodi 5 mg tablet 00:00: 00:00 mg total) st 00 :00 by mouth daily with breakfast. letrozole 2019- 2020- No 2.5mg QD Take 1 [place] (FEMARA) 07-05 tablet Methodi 2.5 mg 00:00: 23:59 (2.[address] chemo 00 :00 total) by tablet mouth daily for 90 days. ondansetron 2018-06- No Invasive 8mg Q8H Take 1 [facility] (ZOFRAN) 8 08-26- ductal tablet (8 M ethodi MG tablet 00:00: 00:00 carcinoma mg total) st 00 :00 of breast, by mouth female, every 8 left (HCC) (eight) hours as needed for nausea or vomiting. HYDROcodone 2018-06- chronic 1{tbl} [facility]H [facility] tablet by Me drew corado (NORCO) 00:00: 23:[address] 10-325 mg 00 :00 every 6 per tablet (six) hours as needed for moderate pain for up to 15 days .chronic pain. Max Daily Amount: 4 tablets acetaminoph 2018-06- No Take by Neville pa en (TYLENOL 220 06-18 mouth. Metho di ORAL) 10:35: 00:00 st 42 :00 mv-mn/folic 2018-06- No QD Take by Neville pa acid/calciu 08-05 mouth Method i m/vit K 11:25: 00:[address] (WOMEN'S 50 14 :00 PLUS MULTIVITAMI N ORAL) inulin 2018-06- QD Take by [facility] (FIBER 07-24 mouth Methodi GUMMIES 09:38: 00:[address] ORAL) 12 :00 clotrimazol 2018-06- No Q.5D Apply [place] e-betametha 07-24 topically Va harleymelvina sone 00:00: 23:59 2 (two) st (LOTRISONE) 00 :00 times a 1-0.05 % day for 30 cream days. labetalol 2018-06 Yes 200mg Q.5D Take 200 [facility] ston (NORMODYNE) 1-20 mg by Methodi 200 MG 00:00: mouth 2 st tablet 00 (two) times a day. magnesium 2018-06- Hypomagnese 2g [facility] sulfate 2 07-07 guilherme Methodi g/50 mL 11:00: 11:08 st IVPB 00 :12 (premix) pantoprazol 2018-06- Iron 40mg QD Take 1 [facility] ston e 07-01 deficiency tablet (40 Me harleymelvina (PROTONIX) 00:00: 23:59 mg total) s t 40 MG EC 00 :00 by mouth tablet daily for 30 days. Lactobacill 2018-06- No 1g Q.[id number] Take 1 [facility] 06-30 [id number] packet (1 Met trino acidoph-L.b 00:00: 00:00 3D g total) s t ulgar 00 :00 by mouth 3 (LACTINEX) (three) 100 million times a cell tablet day for 30 days. HYDROcodone 2018-06- No acute pain 1{tbl} Q6H Take 1 [facility] -acetaminop 06-30 11-08 tablet by Me drew corado (NORCO) 00:00: 23:[address] 10-325 mg 00 :00 every 6 per tablet (six) hours as needed for moderate pain for up to 7 days .Acute Pain. Max Daily Amount: 4 tablets labetalol 2018-06 No 200mg QD Take 200 [place] (NORMODYNE) 0-15 10-15 mg by Method i 200 MG 20:43: 00:[address] tablet 42 :00 daily. pantoprazol 2018-06 No TAKE 1 [facility]ia ston e 0-11 04-30 TABLET BY Methodi (PROTONIX) 00:00: 00:[address] 40 MG EC 00 :00 EVERY tablet MORNING ON AN EMPTY STOMACH labetalol 2018-06- No 400mg Q.5D Take 2 [place] (NORMODYNE) 0-10 11- tablets Meth melvina 200 MG 00:00: 23:59 ([address] tablet 00 :00 total) by mouth 2 (two) times a day for 30 days. acetaminoph 2018-06- acute pain 1{tbl} Q4H Take 1 [facility] en-codeine 0-10 - tablet by Met jameson (TYLENOL 00:00: 23:[address] WITH 00 :00 every 4 CODEINE #3) (four) 300-30 mg hours as per tablet needed for moderate pain for up to 30 days .Acute Pain. letrozole 2018-06- No TAKE 1 [place] (FEMARA) 0- 12-30 TABLET(2.5 Meth melvina 2.5 mg 00:00: 23:59 MG) BY st chemo 00 :00 MOUTH tablet DAILY letrozole No 2.5mg QD Take 1 [place] (FEMARA) 9 09-27 tablet Methodi 2.5 mg 00:00: 00:00 (2.[address] chemo 00 :00 total) by tablet mouth daily for 30 days. pantoprazol 2018- No TAKE 1 [facility] ston e 03-08- TABLET BY Methodi (PROTONIX) 00:00: 00:[address] 40 MG EC 00 :00 EVERY tablet MORNING ON AN EMPTY STOMACH furosemide 2018- No TAKE 1 [place] (LASIX) 40 03-03 TABLET BY Met hodi mg tablet 00:00: 23:[address] 00 :00 TWICE DAILY furosemide 2018- No 40mg Q.5D Take 40 mg [facility] (LASIX) 40 02-26- by mouth 2 Me thodi mg tablet 12:08: 00:00 (two) st 19 :00 times a day. furosemide 2018- No 40mg Q.5D Take 1 [place] (LASIX) 40 02-26 tablet (40 Me thodi mg tablet 00:00: 00:00 mg total) st 00 :00 by mouth 2 (two) times a day. potassium 2018- No Hypokalemia 20meq Q.[id number] [facility] chloride 20 -03 07- [id number] M ethodi mEq in 100 11:00: 11:[address] mL IVPB 00 :00 (FOR CENTRAL LINE ONLY) pantoprazol 2018- No TAKE 1 [facility] ston e 02-03 TABLET BY Methodi (PROTONIX) 00:00: 00:[address] 40 MG EC 00 :00 EVERY tablet MORNING ON AN EMPTY STOMACH potassium 2018- No Invasive 20meq Q.[id number] [facility] chloride 20 - 07-19 ductal [id number] Method[facility] mEq in 100 11:15: 14:36 carcinoma 67D s t mL IVPB 00 :00 of breast, (FOR female, CENTRAL left (HCC) LINE ONLY) lidocaine-p 2018- No Invasive Apply to [facility] rilocaine 01-13 10-15 ductal port 1 Metho di (EMLA) 00:00: 00:[address] 2.5-2.5 % 00 :00 of breast, to cream female, chemothera left (HCC) py pantoprazol 2018- No TAKE 1 [facility] ston e 12-29- TABLET BY Methodi (PROTONIX) 00:00: 00:[address] 40 MG EC 00 :00 EVERY tablet MORNING ON AN EMPTY STOMACH citalopram 2018- No 40mg Q.5D Take 40 mg [facility] (CeleXA) 40 12-21 by mouth 2 M ethodi MG tablet 16:39: 00:00 (two) st 56 :00 times a day. lidocaine-p 2019- No Invasive Apply to [facility] rilocaine 12-16 ductal port 1 Metho di (EMLA) 00:00: 00:[address] 2.5-2.5 % 00 :00 of breast, to cream female, chemothera left (HCC) py letrozole 2018- No 1{tbl} QD Take 1 [facility] ston (FEMARA) 12-05 tablet by Felix rios 2.5 mg 00:00: 00:[address] chemo 00 :00 every tablet evening. 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 levoFLOXaci 2019- No 1 tablet [place] n 11-28 every 24 Methodi (LEVAQUIN) 00:00: 00:[address] 750 MG 00 :00 tablet nystatin 2018- No Apply [facility] (MYCOSTATIN 11-27 topically. M valdez ) 100,000 00:00: 00:00 Apply unit/gram 00 :00 topically. powder cephalexin 2018- No 500mg Take 500 [place] (KEFLEX) 11-25-24 mg by Methodi 500 MG 00:00: 00:[address] capsule 00 :00 tablet twice a day pantoprazol 2019- No TAKE 1 [facility] ston e 5-28 07-02 TABLET BY Methodi (PROTONIX) 00:00: 00:[address] 40 MG EC 00 :00 EVERY tablet MORNING ON AN EMPTY STOMACH ondansetron 2018- No 8mg Q8H Take 1 [facility] ston (ZOFRAN) 8 11-24- tablet (8 Met hodi MG tablet 00:00: 23:59 mg total) st 00 :00 by mouth every 8 (eight) hours as needed for nausea or vomiting for up to 30 days. acetaminoph 2018- No 1{tbl} Q6H Take 1 [place] en-codeine 03-05 10-15 tablet by Met jameson (TYLENOL 00:00: 00:[address] WITH 00 :00 every 6 CODEINE #3) (six) 300-30 mg hours as per tablet needed. 1 tablet every 4 hrs as needed for pain Vital Signs Vital Name Observation Time Observation Value Comments Source Systolic blood 2019-12-09 09:20:00 126 mm[Hg] Jessicato n Taoist pressure Diastolic blood 2019-12-09 09:20:00 61 mm[Hg] Stephen on Taoist pressure Heart rate 2019-12-09 09:20:00 71 /min Yonas Keller Body temperature 2019-12-09 09:20:00 36.89 Jamilah Jessica ton [facility]ist Respiratory rate 2019-12-09 09:20:00 18 /min Jessica Keller Body height 2019-12-09 09:20:00 152.4 cm Yonas Keller Body weight 2019-12-09 09:20:00 59.376 kg Yonas Keller BMI 2019-12-09 09:20:00 25.56 kg/m2 Yonas Keller Oxygen saturation in 2019-12-09 09:20:00 99 /min Yonas Keller Arterial blood by Pulse oximetry Procedures Procedure Date / Time Performing Clinician Source Performed THYROID STIMULATING 2019-12-09 10:17:00 Davi Rey HORMONE LIPID PANEL 2019-12-09 10:17:00 Davi Rey HEMOGLOBIN A1C 2019-12-09 10:17:00 Davi Rey Met moe COMPREHENSIVE METABOLIC 2019-12-09 09:05:00 Eugenie Bowen PANEL HC COMPLETE BLD COUNT 2019-12-09 09:05:00 Eugenie Bowen W/AUTO DIFF MAGNESIUM LEVEL 2019-12-09 09:05:00 Eugenie Bowen ESTIMATED GFR 2019-12-09 09:05:00 Eugenie Bowen XR SPINE SCOLIOSIS 2-3 2019-11-26 12:52:18 Maik Flaherty VIEWS COMPREHENSIVE METABOLIC 2019-11-18 09:09:00 Eugenie Bowen PANEL HC COMPLETE BLD COUNT 2019-11-18 09:09:00 Eugenie Bowen W/AUTO DIFF MAGNESIUM LEVEL 2019-11-18 09:09:00 Eugenie Bowen ESTIMATED GFR 2019-11-18 09:09:00 Eugenie Bowen MRI THORACIC SPINE WO 2019-11-18 08:41:15 Eugenie Bowen CONTRAST NM BONE SCAN WHOLE BODY 2019-10-21 15:29:28 Eugenie Bowen COMPREHENSIVE METABOLIC 2019-10-21 08:34:00 Eugenie Bowen PANEL HC COMPLETE BLD COUNT 2019-10-21 08:34:00 Eugenie Bowen W/AUTO DIFF MAGNESIUM LEVEL 2019-10-21 08:34:00 Eugenie Bowen ESTIMATED GFR 2019-10-21 08:34:00 Eugenie Bowen TRANSFUSE RED BLOOD CELLS 2019-09-30 17:09:54 Eugenie Bowen TYPE AND SCREEN 2019-09-30 11:20:00 Eugenie Bowen PREPARE RBC 2019-09-30 11:20:00 Eugenie Bowen COMPREHENSIVE METABOLIC 2019-09-30 10:15:00 Eugenie Bowen PANEL HC COMPLETE BLD COUNT 2019-09-30 10:15:00 Eugenie Bowen W/AUTO DIFF MAGNESIUM LEVEL 2019-09-30 10:15:00 Eugenie Bowen ESTIMATED GFR 2019-09-30 10:15:00 Eugenie Bowen IP CONSULT TO 2019-09-22 00:00:00 ProviderKavitha GASTROENTEROLOGY TTE COMPLETE, WO CONTRAST, 2019-09-09 15:02:00 Eugenie Bowen W DOPPLER ([id number]) COMPREHENSIVE METABOLIC 2019-09-09 09:59:00 Eugenie Bowen PANEL HC COMPLETE BLD COUNT 2019-09-09 09:59:00 Eugenie Bowen W/AUTO DIFF MAGNESIUM LEVEL 2019-09-09 09:59:00 Eugenie Bowen ESTIMATED GFR 2019-09-09 09:59:[address] ABDOMEN W CONTRAST 2019-09-07 15:12:27 Eugenie Bowen XR ABDOMEN 1 VW 2019-08-26 13:31:09 Eugenie Bowen COMPREHENSIVE METABOLIC 2019-08-26 08:40:00 Eugenie Bowen PANEL HC COMPLETE BLD COUNT 2019-08-26 08:40:00 Eugenie Bowen W/AUTO DIFF MAGNESIUM LEVEL 2019-08-26 08:40:00 Eugenie Bowen ESTIMATED GFR 2019-08-26 08:40:00 Eugenie Bowen COMPREHENSIVE METABOLIC 2019-08-19 10:00:00 Eugenie Bowen PANEL HC COMPLETE BLD COUNT 2019-08-19 10:00:00 Eugenie Bowen W/AUTO DIFF MAGNESIUM LEVEL 2019-08-19 10:00:00 Eugenie Bowen ESTIMATED GFR 2019-08-19 10:00:00 Eugenie Bowen COMPREHENSIVE METABOLIC 2019-08-12 09:47:00 Eugenie Bowen PANEL HC COMPLETE BLD COUNT 2019-08-12 09:47:00 Eugenie Bowen W/AUTO DIFF MAGNESIUM LEVEL 2019-08-12 09:47:00 Eugenie Bowen ESTIMATED GFR 2019-08-12 09:47:00 Eugenie Bowen COMPREHENSIVE METABOLIC 2019-08-05 09:27:00 Eugenie Bowen Taoist PANEL HC COMPLETE BLD COUNT 2019-08-05 09:27:00 Eugenie Bowen Taoist W/AUTO DIFF MAGNESIUM LEVEL 2019-08-05 09:27:00 Eugenie Bowen ESTIMATED GFR 2019-08-05 09:27:00 Eugenie Bowen COMPREHENSIVE METABOLIC 2019-07-29 08:45:00 Eugenie Bowen Taoist PANEL HC COMPLETE BLD COUNT 2019-07-29 08:45:00 Eugenie Bowen Taoist W/AUTO DIFF MAGNESIUM LEVEL 2019-07-29 08:45:00 Eugenie Bowen ESTIMATED GFR 2019-07-29 08:45:00 Eugenie Bowen COMPREHENSIVE METABOLIC 2019-07-08 09:30:00 Eugenie Bowen PANEL HC COMPLETE BLD COUNT 2019-07-08 09:30:00 Eugenie Bowen Taoist W/AUTO DIFF MAGNESIUM LEVEL 2019-07-08 09:30:00 Eugenie Bowen ESTIMATED GFR 2019-07-08 09:30:00 Eugenie Bowen POC GLUCOSE 2019-06-18 07:20:00 Vineet Le POC GLUCOSE 2019-06-17 21:08:00 Vineet Le POC GLUCOSE 2019-06-17 17:28:00 Vineet Le POC GLUCOSE 2019-06-17 11:35:00 Vineet Le POC GLUCOSE 2019-06-17 07:34:00 Vineet Le POC GLUCOSE 2019-06-17 01:40:00 Vineet Le POC GLUCOSE 2019-06-16 21:14:00 Vineet Le POC GLUCOSE 2019-06-16 16:37:00 Vineet Le POC GLUCOSE 2019-06-16 12:16:00 Vineet Le SURGICAL PATHOLOGY REQUEST 2019-06-16 10:59:00 Vineet Le OH AN ELECTIVE 2019-06-16 09:56:11 Rajani Huggins [facility] SUPRAGLOTTIC AIRWAY MASTECTOMY, SIMPLE 2019-06-16 09:30:00 Vineet Le BIOPSY, LYMPH NODE, 2019-06-16 09:30:00 Vineet Le SENTINEL NM INJECT SULFUR COLLOID 2019-06-16 09:20:26 Vineet Le LYMPH POC GLUCOSE 2019-06-16 06:26:00 Vineet Le OBTAIN MEDICAL RECORDS 2019-06-10 00:00:00 ProviderKavitha IP CONSULT TO CARDIOLOGY 2019-06-09 00:00:00 ProviderShantal XR CHEST 2 VW 2019-06-04 12:43:00 Vineet Le ECG PRE/POST OP 2019-06-04 12:09:22 Vineet Le CBC HEMOGRAM 2019-06-04 11:49:00 Vineet Le COMPREHENSIVE METABOLIC 2019-06-04 11:49:00 Vineet Le PANEL ESTIMATED GFR 2019-06-04 11:49:00 Vineet Le US BREAST COMPLETE 2019-05-12 10:23:56 Vineet Le BILATERAL MAMMO BREAST DIAGNOSTIC 2019-05-12 09:50:00 Vineet Le TOMOSYNTHESIS BILATERAL COMPREHENSIVE METABOLIC 2019-05-07 09:25:00 Eugenie Bowen PANEL HC COMPLETE BLD COUNT 2019-05-07 09:25:00 Eugenie Bowen W/AUTO DIFF MAGNESIUM LEVEL 2019-05-07 09:25:00 Eugenie Bowen ESTIMATED GFR 2019-05-07 09:25:00 Eugenie Bowen XR KNEE 3 VW LEFT 2019-05-06 10:37:43 Kendall Cordero XR LEG LENGTH EVALUATION 2019-05-06 10:37:25 Kendall Cordero POC GLUCOSE 2019-04-30 17:34:00 Jyoti Altamirano [facility] POC GLUCOSE 2019-04-30 12:33:00 AdarshJyoti Meth odist POC GLUCOSE 2019-04-30 08:23:00 AdarshJyoti Meth odist POC GLUCOSE 2019-04-29 20:38:00 AdarshJyoti Meth odist POC GLUCOSE 2019-04-29 18:11:00 AdarshJyoti Meth odist POC GLUCOSE 2019-04-29 12:19:00 AdarshJyoti Meth odist POC GLUCOSE 2019-04-29 07:27:00 JoglcmJyoti Meth odist POC GLUCOSE 2019-04-28 20:47:00 VibhaglcmJyoti Meth odist POC GLUCOSE 2019-04-28 17:35:00 VibhaglcmJyoti Meth odist POC GLUCOSE 2019-04-28 12:06:00 VibhaglcmJyoti Meth odist POC GLUCOSE 2019-04-28 07:41:00 AdarshJyoti Meth odist POC GLUCOSE 2019-04-27 20:51:00 AdarshJyoti Meth odist POC GLUCOSE 2019-04-27 17:55:00 AdarshJyoti Meth odist POC GLUCOSE 2019-04-27 11:49:00 AdarshJyoti Meth odist POC GLUCOSE 2019-04-27 08:11:00 AdarshJyoti Meth odist POC GLUCOSE 2019-04-26 17:37:00 AdarshJyoti Meth odist POC GLUCOSE 2019-04-26 11:58:00 AdarshJyoti Meth odist POC GLUCOSE 2019-04-26 06:52:00 Lydia El Meth odist POC GLUCOSE 2019-04-25 21:09:00 Lydia El Meth odist POC GLUCOSE 2019-04-25 16:48:00 Lydia El Meth odist POC GLUCOSE 2019-04-25 11:54:00 Lydia El Meth odist POC GLUCOSE 2019-04-25 08:09:00 BrianLydia rodriguez Meth odist POC GLUCOSE 2019-04-24 21:13:00 Lydia El Meth odist POC GLUCOSE 2019-04-24 18:06:00 Lydia El Meth odist POC GLUCOSE 2019-04-24 11:56:00 Lydia El Meth odist POC GLUCOSE 2019-04-24 07:35:00 Lydia El Meth odist POC GLUCOSE 2019-04-23 21:40:00 AdarshJyoti Meth odist XR KNEE 1 OR 2 VW LEFT 2019-04-23 20:50:30 Eyal Castillo Taoist POC GLUCOSE 2019-04-23 17:49:00 JoglcmJyoti Meth odist POC GLUCOSE 2019-04-23 11:56:00 AdarshJyoti Meth odist POC GLUCOSE 2019-04-23 07:21:00 AdarshJyoti Meth odist POC GLUCOSE 2019-04-22 17:52:00 AdarshJyoti Meth odist POC GLUCOSE 2019-04-22 11:52:00 Adarsh Jyoti [facility] POC GLUCOSE 2019-04-22 07:18:00 Adarsh Jyoti [facility] BASIC METABOLIC PANEL 2019-04-22 04:00:00 Jyoti Altamirano n Taoist ESTIMATED GFR 2019-04-22 04:00:00 AdarshJyoti Meth odist POC GLUCOSE 2019-04-21 20:47:00 AdarshJyoti Meth odist POC GLUCOSE 2019-04-21 18:04:00 Adarsh Jyoti [facility] POC GLUCOSE 2019-04-21 11:26:00 Jolizzie Jyoti [facility] POC GLUCOSE 2019-04-21 07:12:00 JoglcmJyoti Meth odist POC GLUCOSE 2019-04-20 20:20:00 Jolizzie Jyoti [facility] POC GLUCOSE 2019-04-20 17:29:00 Joglcm Jyoti [facility] POC GLUCOSE 2019-04-20 11:41:00 Adarsh Jyoti [facility] POC GLUCOSE 2019-04-20 07:17:00 Belgica Nielsen Taoist B NATRIURETIC PEPTIDE 2019-04-20 06:15:00 Rosalina Tenorio kiko Taoist POC GLUCOSE 2019-04-19 21:00:00 Belgica Nielsen BASIC METABOLIC PANEL 2019-04-19 19:40:00 Sheila Moreno Taoist ESTIMATED GFR 2019-04-19 19:40:00 Sheila Moreno odist POC GLUCOSE 2019-04-19 17:37:00 BavareBelgica Taoist POC GLUCOSE 2019-04-19 12:00:00 Bavdenia, Belgica [facility] POC GLUCOSE 2019-04-19 07:47:00 Bavare, Belgica [facility] POC GLUCOSE 2019-04-18 21:08:00 Morales, Belgica [facility] POC GLUCOSE 2019-04-18 17:15:00 Ricdenia, Belgica [facility] POC GLUCOSE 2019-04-18 11:41:00 Morales, Belgica [facility] POC GLUCOSE 2019-04-18 07:43:00 Morales, Belgica [facility] POC GLUCOSE 2019-04-17 20:57:00 Morales, Belgica [facility] GASTROINTESTINAL PANEL 2019-04-17 19:56:00 Alesha Jean Taoist Imarendenewe POC GLUCOSE 2019-04-17 17:53:00 RicdeniaBelgica Taoist POC GLUCOSE 2019-04-17 12:01:00 Belgica Nielsen Taoist POC GLUCOSE 2019-04-17 08:24:00 Morales, Belgica [facility] POC GLUCOSE 2019-04-16 21:06:00 Ricdenia, Belgica [facility] POC GLUCOSE 2019-04-16 17:26:00 Belgica Nielsen Taoist HC COMPLETE BLD COUNT 2019-04-16 09:15:00 Eugenie Bowen W/AUTO DIFF COMPREHENSIVE METABOLIC 2019-04-16 09:15:00 Eugenie Bowen PANEL ESTIMATED GFR 2019-04-16 09:15:00 Eugenie Bowen POC GLUCOSE 2019-04-16 07:17:00 Belgica Nielsen Taoist POC GLUCOSE 2019-04-15 21:36:00 Belgica Nielsen Taoist POC GLUCOSE 2019-04-15 17:37:00 Belgica Nielsen Taoist POC GLUCOSE 2019-04-15 11:31:00 Belgica Nielsen Taoist POC GLUCOSE 2019-04-15 07:35:00 Belgica Nielsen Taoist POC GLUCOSE 2019-04-14 21:01:00 Belgica Nielsen Taoist POC GLUCOSE 2019-04-14 17:40:00 Belgica Nielsen Taoist POC GLUCOSE 2019-04-14 11:41:00 Belgica Nielsen Taoist POC GLUCOSE 2019-04-14 07:20:00 Jyoti Altamirano Meth od[facility] POC GLUCOSE 2019-04-13 17:31:00 Aditi Smith [facility] Natvarlal POC GLUCOSE 2019-04-13 12:38:00 Aditi Smith Met hodist Natvarlal POC GLUCOSE 2019-04-13 07:23:00 Aditi Smith Met [facility] Natvarlal POC GLUCOSE 2019-04-12 21:33:00 Aditi Smith Met hod[facility] Natvarlal POC GLUCOSE 2019-04-12 17:05:00 Aditi Smith Met [facility] Natvarlal POC GLUCOSE 2019-04-12 11:40:00 Aditi Smith Met [facility] Natvarlal POC GLUCOSE 2019-04-12 07:45:00 Aditi Smith Met [facility] Natvarlal POC GLUCOSE 2019-04-12 06:23:00 Aditi Smith Met [facility] Natvarlal POC GLUCOSE 2019-04-11 22:01:00 Aditi Smith Met [facility] Natvarlal POC GLUCOSE 2019-04-11 17:00:00 Aditi Smith Met [facility] Natvarlal POC GLUCOSE 2019-04-11 12:06:00 Aditi Smith Met [facility] Natvarlal POC GLUCOSE 2019-04-11 07:23:00 Aditi Smith Met [facility] Natvarlal POC GLUCOSE 2019-04-11 06:44:00 Aditi Smith [facility] Natvarlal POC GLUCOSE 2019-04-10 21:08:00 Aditi Smith Met [facility] Natvarlal POC GLUCOSE 2019-04-10 18:05:00 Aditi Smith [facility] Natvarlal POC GLUCOSE 2019-04-10 11:58:00 Aditi Smith Met [facility] Natvarlal POC GLUCOSE 2019-04-10 07:32:00 Aditi Smith [facility] Natvarlal POC GLUCOSE 2019-04-09 23:32:00 Aditi Smith [facility] Natvarlal POC GLUCOSE 2019-04-09 16:26:00 Aditi Smith [facility] Natvarlal POC GLUCOSE 2019-04-09 12:11:00 Aditi Smith [facility] Natvarlal POC GLUCOSE 2019-04-09 07:01:00 Aditi Smith [facility] Natvarlal POC GLUCOSE 2019-04-08 21:14:00 Aditi Smith [facility] Natvarlal POC GLUCOSE 2019-04-08 17:06:00 Aditi Smith Met [facility] Natvarlal POC GLUCOSE 2019-04-08 12:25:00 Aditi Smith Met [facility] Natvarlal POC GLUCOSE 2019-04-08 07:14:00 Aditi Smith Met [facility] Natvarlal POC GLUCOSE 2019-04-07 17:12:00 Aditi Smith [facility] Natvarlal POC GLUCOSE 2019-04-07 12:04:00 Aditi Smith [facility] Natvarlal POC GLUCOSE 2019-04-07 07:32:00 Aditi Smith [facility] Natvarlal BASIC METABOLIC PANEL 2019-04-07 04:00:00 [facility] EST[facility] GFR 2019-04-07 04:00:00 Aditi Smith [facility] Natvarlal POC GLUCOSE 2019-04-06 21:29:00 Aditi Smith [facility] Natvarlal POC GLUCOSE 2019-04-06 17:51:00 Aditi Smith [facility] Natvarlal POC GLUCOSE 2019-04-06 12:48:00 Aditi Smith [facility] Natvarlal POC GLUCOSE 2019-04-06 08:02:00 Aditi Smith [facility] Natvarlal POC GLUCOSE 2019-04-05 21:46:00 Reinaldo Altamiranoati Yonas [facility] MRI KNEE WO CONTRAST LEFT 2019-04-05 21:20:00 Becky Frazier MRI PELVIS WO CONTRAST 2019-04-05 21:00:00 Becky Frazier Taoist POC GLUCOSE 2019-04-05 18:05:00 eHrvemangeronimo Jyoti [facility] POC GLUCOSE 2019-04-05 11:46:00 Adarsh Jyoti [facility] POC GLUCOSE 2019-04-05 07:45:00 Reinaldo Altamiranoati Yonas [facility] HC COMPLETE BLD COUNT 2019-04-05 04:00:00 Rosalina Tenorio W/AUTO DIFF COMPREHENSIVE METABOLIC 2019-04-05 04:00:00 Rosalina Tenorio PANEL ESTIMATED GFR 2019-04-05 04:00:00 Rosalina Tenorio HEMOGLOBIN A1C 2019-04-05 04:00:00 Rosalina Tenorio BLOOD CULTURE, AEROBIC & 2019-04-05 00:55:00 Rosalina Tenorio ANAEROBIC BLOOD CULTURE, AEROBIC & 2019-04-05 00:53:00 Rosalina Tenorio ANAEROBIC ECG ED PRELIMINARY 2019-04-04 23:16:28 [place] INTERPRETATION US DUPLEX VENOUS LOWER 2019-04-04 22:50:00 [place] EXTREMITY LEFT ECG 12-LEAD 2019-04-04 22:21:16 [place] n Taoist XR KNEE 4+ VW LEFT 2019-04-04 21:56:32 Daquan Park ston Taoist HC COMPLETE BLD COUNT 2019-04-04 21:53:00 [place] W/AUTO DIFF BASIC METABOLIC PANEL 2019-04-04 21:53:00 [place] ESTIMATED GFR 2019-04-04 21:53:00 [place] n Taoist HC COMPLETE BLD COUNT 2019-03-26 08:51:00 SmithLaina jefferson Jessica nascimento Taoist W/AUTO DIFF COMPREHENSIVE METABOLIC 2019-03-26 08:51:00 LuisDionicioyannick pa Taoist PANEL ESTIMATED GFR 2019-03-26 08:51:00 Luis Laina Pattongeronimo [facility] US DUPLEX VENOUS LOWER 2019-02-26 16:10:17 Eugenie Bowen EXTREMITY LEFT URINE CULTURE 2019-02-26 13:24:00 Eugenie Bowen GRAM STAIN 2019-02-26 13:24:00 Eugenie Bowen URINALYSIS SCREEN AND 2019-02-26 13:00:00 Eugenie Bowen MICROSCOPY, WITH REFLEX TO CULTURE HC COMPLETE BLD COUNT 2019-02-26 09:40:00 Eugenie Bowen W/AUTO DIFF COMPREHENSIVE METABOLIC 2019-02-26 09:40:00 Eugenie Bowen PANEL ESTIMATED GFR 2019-02-26 09:40:00 Eugenie Bowen HC COMPLETE BLD COUNT 2019-02-05 08:52:00 Eugenie Bowen W/AUTO DIFF COMPREHENSIVE METABOLIC 2019-02-05 08:52:00 Eugenie Bowen PANEL ESTIMATED GFR 2019-02-05 08:52:00 Eugenie Bowen COMPREHENSIVE METABOLIC 2019-01-15 09:34:00 Eugenie Bowen PANEL HC COMPLETE BLD COUNT 2019-01-15 09:34:00 Eugenie Bowen W/AUTO DIFF ESTIMATED GFR 2019-01-15 09:34:00 Eugenie Bowen IP CONSULT TO 2019-01-13 00:00:00 Provider, Kavitha Keller GASTROENTEROLOGY ED CONSULT 2018-12-29 00:00:00 ProviderKavitha DIABETES/ENDOCRINOLOGY IR PORT PLACEMENT 2018-12-23 11:43:00 Eugenie Bowento n Taoist POC GLUCOSE 2018-12-23 08:47:00 Eugeine Bowen Plan of Care Planned Activity Planned Date Details Comments Source Future Scheduled 2026-03-27 COLONOSCOPY SCREENING [place] [facility] 00:00:00 [code = COLONOSCOPY SCREENING] Future Scheduled 2021-05-12 BREAST CANCER [facility] 00:[facility]:00 SCREENING [code = BREAST CANCER SCREENING] Future Scheduled 2020-01-29 [place]ZA VACCINE [place] [facility] 00:00:00 [code = INFLUENZA VACCINE] Future Scheduled 2019-12-31 DIABETIC RETINAL EYE [facility] 00:00:00 EXAM [code = DIABETIC RETINAL EYE EXAM] Future Scheduled 2019-10-14 DIABETIC FOOT EXAM [place] [facility] 00:00:00 [code = DIABETIC FOOT EXAM] Future Scheduled 2018 65+ PNEUMOCOCCAL [place] [facility] 00:00:00 VACCINE (1 of 2 - PCV13) [code = 65+ PNEUMOCOCCAL VACCINE (1 of 2 - PCV13)] Future Scheduled 2003 SHINGLES VACCINES (#1) [place] [facility] 00:00:00 [code = SHINGLES VACCINES (#1)] Encounters Start End Encounter Admission Attending Care Care Encounter Source Date/Time Date/Time Type Type Clinicians Facility Department ID 2019-12-09 2019-12-09 Outpatient JESSI, [facility] [id number] [place] 00:00:00 00:00:00 EUGENIE [address] 2019-12-09 2019-12-09 Outpatient PRICE, [facility] [id number] [place] 00:00:00 00:00:00 SAGRARIO [address] 2019-12-09 2019-12-09 Outpatient MAKHOUL, [facility] [id number] [place] 00:00:00 00:00:00 DAVI [address] 2019-11-26 2019-11-26 Outpatient [facility] [id number] [place] 00:00:00 00:00:[address] 2019-11-26 2019-11-26 Outpatient [facility] [id number] [place] 00:00:00 00:00:[address] 2019-11-18 2019-11-18 Outpatient NIRAVATH, [facility] [id number] [place] 00:00:00 00:00:00 EUGENIE [address] 2019-11-18 2019-11-18 Outpatient NIRAVATH, [facility] [id number] [place] 00:00:00 00:00:00 EUGENIE [address] 2019-10-21 2019-10-21 Outpatient NIRAVATH, [facility] [id number] [place] 00:00:00 00:00:00 EUGENIE 614 [facility] 2019-10-21 2019-10-21 Outpatient PRICE, [facility] [id number] [place] 00:00:00 00:00:00 SAGRARIO 032 [facility] 2019-10-21 2019-10-21 Outpatient NIRAVATH, [facility] [id number] [place] 00:00:00 00:00:00 EUGENIE 115 [facility] 2019-10-21 2019-10-21 Outpatient NIRAVATH, [facility] [id number] [place] 00:00:00 00:00:00 EUGENIE [address] 2019-10-12 2019-10-19 Outpatient MAKHOUL, [facility] [id number] [place] 00:00:00 00:00:00 DAVI [address] 2019-09-30 2019-10-01 Outpatient NIRAVATH, [facility] [id number] [place] 00:00:00 00:00:00 EUGENIE [address] 2019-09-30 2019-09-30 Outpatient NIRAVATH, [facility] [id number] [place] 00:00:00 00:00:00 EUGENIE [address] 2019-09-09 2019-09-09 Outpatient NIRAVATH, [facility] [id number] [place] 00:00:00 00:00:00 EUGENIE [address] 2019-09-09 2019-09-09 Outpatient NIRAVATH, [facility] [id number] [place] 00:00:00 00:00:00 EUGENIE [address] 2019-09-07 2019-09-07 Outpatient NIRAVATH, [facility] [id number] [place] 00:00:00 00:00:00 EUGENIE [address] 2019-08-27 2019-08-27 Orders Doctor NUNEZ [id number] 00:00:00 00:00:00 Only Unassigned, JAZ [id number] [place] [facility] [id number] 2019-08-26 2019-08-26 Outpatient NIRAVATH, [facility] [id number] [place] 00:00:00 00:00:00 EUGENIE 965 [facility] 2019-08-26 2019-08-26 Outpatient PRICE, [facility] [id number] [place] 00:00:00 00:00:00 SAGRARIO 318 [facility] 2019-08-26 2019-08-26 Outpatient NIRAVATH, [facility] [id number] [place] 00:00:00 00:00:00 EUGENIE 323 [facility] 2019-08-19 2019-08-19 Outpatient NIRAVATH, [facility] [id number] [place] 00:00:00 00:00:00 EUGENIE 611 [facility] 2019-06-16 2019-06-18 Inpatient COSELLI, [facility] [id number] [place] 00:00:00 00:00:00 VINEET 635 [facility] 2019-06-04 2019-06-04 Outpatient COSELLI, [facility] [id number] [place] 00:00:00 00:00:00 VINEET [address] 2019-05-12 2019-05-12 Outpatient COSELLI, [facility] [id number] [place] 00:00:00 00:00:00 VINEET [address] 2019-05-12 2019-05-12 Outpatient COSELLI, [facility] [id number] [place] 00:00:00 00:00:00 VINEET [address] 2019-04-13 2019-04-30 Inpatient JOGLEKAR, [facility] [id number] [place] 00:00:00 00:00:00 JYOTI [address] 2019-04-04 2019-04-13 Inpatient SMITH, [facility] [id number] [place] 00:00:00 00:00:00 AMITKUMAR [address] Results Test Description Test Time Test Comments Results Result Comments Source Hemoglobin A1c 2019-12-09 12:56:37 Test Item Value Reference Range Interpretation Comme nts Hemoglobin A1C (test code = 5.8 % 4-5.6 H HbA1c cutoffs for diagnosing 73163-5) diabetes:4.0% - 5.6% = normal5.7% - 6.4% = increase d risk for diabetes (prediabetes)9> =6.5% = [id number] for glycemic co ntrol (ADA 2016)< 7.0% Target for non adults with diabetes. More or less stringent targets may be appropriate for individual jade ents. <7.5% Target for Children an d adolescents with type 1 diabetes . Lab Interpretation (test code = Abnormal 81771-5) [facility] [id number] 11:19:31 Test Item Value Reference Range Interpretation Comments TSH (test code = 3016-3) 3.55 0.27- 4.20 uIU/mL [facility] [id number] 11:15:05 Test Item Value Reference Interpretation Comments Range Cholesterol (test 121 mg/dL <200 code = 2093-3) Triglycerides (test 91 mg/dL <150 code = 2571-8) HDL cholesterol 58 mg/dL >40 (test code = 2085-9) LDL cholesterol 53 mg/dL <100 Result obtai alice by direct (test code = 2089-1) LDL rajwinder surement Lipid panel SeeBelow Total Cholester ol (mg/dL) interpretation (test < 200 code = 43862-4) Desirable 200-239 Borderline -high >=240 Hi gh Triglyceri joanie (mg/dL) <150 No rmal 150-199 Borderline-high 200-499 High >=500 Very high HDL Choles terol (mg/dL) <40 Low (male) < 40 Low (female) L DL Cholesterol (mg /dL) <100 Optimal 1 00-129 Near or above o ptimal 130-159 Borderline-high 160-189 High >=190 Very high Risk Cat ergories that modify LDL goals.Risk Catergories LDL goal (mg/dL )CHD and CHD risk equiva lent <100 (10-year risk >20%)Multiple ( 2+) risk factors < 130 (10-year risk = <20%)0-1 risk factors <160 (<10-ye ar risk) Defining levels of lipids in metabolic syndromeTriglyc erides > =150 mg/dLHDL Choles terol Men <40 mg/dL Women <40 mg/dL Non-HDL cholest jose j is a second target f or therapy in personswith high triglycerides ( >=200 mg/dL) [place] [facility] [id number] 10:23:33 Test Item Value Reference Range Interpretation Comments Sodium (test code = 128 135- 148 mEq/L L 2951-2) Potassium (test code = 3.7 3.5- 5.0 mEq/L 2823-3) Chloride (test code = 88 98- 112 mEq/L L 5-0) CO2 (test code = 2027-) 28 24- 31 mEq/L Anion gap (test code = 12@ANIO 7- 15 mEq/L 66882-4) BUN (test code = 3094-0) 12 mg/dL 8-23 Creatinine (test code = 0.90 mg/dL 0.5-0.9 0-0) Glucose (test code = 79 mg/dL 65-99 2345-7) Calcium (test code = 9.4 mg/dL 8.8-10.2 98592-1) Protein (test code = 6.8 g/dL 6.3-8.3 -[place] n 2885-2) 4.6-7.0 g/dL1 week 4.4-7 .6 g/dL7 months-1y ear 5.1-7 .3 g/dL1-2 years 5.6-7 .5 g/dL>3 years 6.0-8 .0 g/rY87-959 6.3-8 .3 g/dL Albumin (test code = 3.3 g/dL 3.5-5 L 1751-7) A/G ratio (test code = 0.9 0.7-3.8 1759-0) Alkaline phosphatase 110 U/L 35-104 H (test code = 6768-6) AST (test code = 1920-8) 39 U/L 10-35 H ALT (test code = 1742-6) 35 U/L 5-50 Total bilirubin (test <0.2 0-1.2 code = 1974-2) Lab Interpretation (test Abnormal code = 35456-1) [facility] [id number] 10:23:28 Test Item Value Reference Range Interpretation Comments Magnesium (test code = 72620-9) 1.9 mg/dL 1.6-2.4 [facility] [id number] 10:23:28 Test Item Value Reference Range Interpretation Comments Estimated GFR (test 66 mL/min/1.73 m2 Caterg ory Units code = 5488) InterpretationG 1 >=90 Normal or highG2 60-89 Mildly rwlalciqaA7z 45-59 Mildly to mode rately hqxcqxidnP2n 30-44 Moderately to severely decreasedG4 15-29 Severely decre asedG5 <15 Kidn ey failureThe eGFR was calculated allison tabor the Chronic Kidney Disease Epidemiology Co llaboration (CKD-EPI) equat ion. Interpretation is based on recommendations of the National Kidney Foundation-Kidn ey Disease Outcomes Qualit y Initiative (NKF-KDOQI) pub lished in 2014. [facility] with platelet and [id number] 09:54:10 Test Item Value Reference Range Interpretation Comments WBC (test code = 27697-0) 8.15 4.50- 11.00 k/uL RBC (test code = 13303-6) 3.54 m/uL 4.2-5.5 L HGB (test code = 718-7) 8.9 g/dL 12-16 L HCT (test code = 4544-3) 28.4 % 37-47 L MCV (test code = 787-2) 80.2 fL 82-100 L MCH (test code = 785-6) 25.1 pg 27-34 L MCHC (test code = 786-4) 31.3 g/dL 31-37 RDW - SD (test code = 44.0 fL 37-55 22674-5) MPV (test code = 11252-6) 9.8 fL 8.8-13.2 Platelet count (test code 343 150- 400 k/uL = 60006-7) Nucleated RBC (test code 0.00 /100 WBC = 96934-9) Neutrophils (test code = 70.0 % 39-69 H 85705-8) Lymphocytes (test code = 19.9 % 25-45 L 75845-9) Monocytes (test code = 8.1 % 0-10 18342-5) Eosinophils (test code = 1.1 % 0-5 20456-4) Basophils (test code = 0.4 % 0-1 31988-0) Immature granulocytes 0.5 % 0-1 "Immat ure (test code = 88515-5) granul ocytes" (promyelocytes, myelocytes, metamyelocytes) Lab Interpretation (test Abnormal code = 09192-2) [facility] Thoracic Spine Wo [id number] 09:03:28Hm Interface, Radiology Results 11/18/2019 9:06 AM CDTEXAMINATION: MRI THORACIC SPINE WOCONTRASTCLINICAL HISTORY: R93.89 Abnormal findings on diagnostic imaging of other specified body structures, abnormal bone Scan possible t7 fractureCOMPARISON: Bone scan 10/21/2019TECHNIQUE: Multiplanar multisequence noncontrast enhanced examination was performed of the thoracic spine.FINDINGS:Evidence of mild recent compression deformity of the superior endplate of T7 with bone marrow edema and approximately 30% vertebral height loss. No retropulsion or spinal canal narrowing. Suspected mild chronic deformities of the superior endplate of T1 and T2. Mild right convex thoracic scoliosis. No cord signal abnormality.Patent spinal canal and neural foramina at all thoracic levels with no more than mild posterior disc bulge or protrusion identified. For example, there is mild posterior disc bulge andosteophytes at T12-L1. Large osseous hemangioma within T11. Multilevel facet hypertrophy within the lower thoracic spine.Suspected small right pleural effusion.IMPRESSION: Evidence of recent fracture involving the superior endplate of T7 with mild vertebral height loss. No significant retropulsion or spinal canal narrowing.[id number] [facility] Bone Scan Whole [id number] 16:12:23Hm Interface, Radiology Results 10/21/2019 4:15 PM CDTPROCEDURE: IA BONE SCAN WHOLE BODYINDICATION: C50.912 Malignant neoplasm of unspecified site of left female breast, Breast Cancer. COMPARISON: CT abdomen 09/07/2019, chest x-ray 06/04/2019, bone scan 11/16/2018 TECHNIQUE: The patient was injected with 25 millicuries of [id number] intravenously, followed 3 hours later by whole-body scanning in the anterior and posterior projections. FINDINGS: Mild to moderate thoracolumbar levoscoliosis with degenerative uptake throughout the lower lumbar spine. Old left-sided anterior rib fracture. Marked uptake in/adjacent to the left humeral head is stable from the prior exam and corresponds to old fracture, better seen on the recent chest x-ray. Mild degenerative uptake in the bilateral feet, right greater than left. Physiological renal excretion.The only new finding is mild uptake in a linear, horizontal fashion in T7, not quite included in the pippr-bs-bemn of recent CT. IMPRESSION: No definite evidence of osseous metastatic disease. New uptake in T7 suggests a subacute compression fracture, but could be degenerative. Metastatic disease is not highly suspected.[facility]-[id number] and approved by residential sales/fellow: Huy Orlando M.D.I, Mack Medina, personally reviewed the images and resident's/fellow's findings and agree with the final report.Randolph TaoistPrepare RBC, 1 Units, Irradiated, [id number] 14:39:00 Test Item Value Reference Range Interpretation Comments Product name (test code Apheresis Red Cell AS3 = 25) #1 LR Unit number (test code [id number] = [id number]) Product code (test code Z6331I91 = 3092) Dispense status (test Transfused code = 24) Blood expiration date (test code = 302) Blood type code (test 5100 code = 308) Blood type (test code = O POSITIVE 1314) Compatibility (test Compatible code = 6400) [facility] MethodistType and [id number] 12:24:00 Test Item Value Reference Range Interpretation Comments ABO grouping (test code = 883-9) O Rh type (test code = 91062-8) POS Antibody screen (gel) (test code = NEG 890-4) [facility] MethodistTransthoracic Echocardiogram Complete, (w Contrast, Strain and 3D if needed)2019-09-10 10:23:00Interface, Radiology Results In - 09/10/2019 10:23 AM CDT Echocardiography Report [id number] [address] Pat.Name: BRIAN YOON Pat.ID: [id number].Date: 09/09/2019 Refer.MD: EUGENIE BOWEN MD Exam Time: 1:31:00 PM Study Type:Routine Echo Height: 60in Weight: 134lb BSA: 1.58 m2 Age: 1 1955,64Y Sex: FEMALE BP: 137/78 HR: 77 bpm Sonogrphr: Nusrat Galvan BS, RDCS Pat. Stat.:Outpatient Room: [facility] Study Status:Final Echo Event ID:[id number] Order ID: [id number] Reason for Study:Breast Cancer; ChemoHistory / Clinical:Breast Cancer Procedures: 2D Echo, Colorflow Doppler,StrainRace: White SUMMARY: LV EF is normal.Estimated EF is 60-64%.RV systolic function is normal.Estimated PA systolic pressure is 28 mmHg, assuming a mean RAP of 5mmHg. FIND INGS: LV: LV size is normal. Concentric left ventricular remodeling. Reduced average LV global longitudinal strain at -16%. LV EF is normal.Overall wall motion is normal. Estimated EF is 60-64%.RV: RV size is normal. RV systolic function is normal.LA: LA size is normal.RA: RA size is normal.AO: Aortic rootdiameter is mildly enlarged.ADRIENNE: No pericardial effusion.PLE: Pleural effusion is present.AV: No structural AV abnormalities noted. Mild aortic regurgitation. MV: Moderate mitral annular calcification.PV: No structural PV abnormalities noted.TV: No structuralTV abnormalities noted. Mild tricuspid regurgitation Hernández: Diastolic dysfunction Grade I (Mild): Impaired relaxation with normal LV filling pressures.Other: Estimated PA systolic pressure is 28 mmHg, assuming a mean RAP of 5 mmHg. M EASUREMENTS: 2DParasternal LongAxis Ao An 1.9 cm LVPWd 1.1 cm Ao Rtd 3.2 cmIndex 2.1 cm/m2 LA Ds 3.2 cm IVSd 1.4 cm RWT 0.65 LVIDd 3.4 cm Index 2.2 cm/m2 LV Mass 139 g (87-129) LVIDs 1.3 cm LVM Index 88 g/m2 LV%fs 62 % LVOT 1.7 cm LA Sng Plane LA Area 17 cm2 (8.8-23.4) LA Vol 43 ml Index 27 ml/m2 LA LngAx 5.7 cm RA Sng Plane RA Vol 22 ml Index 14 ml/m2 RA LngAx 4.4 cm RA Area 11 cm2 (8.3-19.5)LVOT LVOT Area 2.4 cm2 DOPPLERLVOT Stroke Vol LVOT TVI 22 cm HR 77 bpm LVOT LVOT SV 54 ml LVOT CO 4.1 l/min SVi 34 ml/m2 LVOT CI 2.6 l/m/m2 MMODETricuspid Valve TAPSE 2.1 cm Signed 09/10/2019 10:23 Letty Alejo M.D.[facility] Abdomen W Yfmbgpkw1408-16-61 16:02:14 Interface, Radiology Results 09/07/2019 4:05 PM CDTEXAMINATION: CT ABDOMEN W CONTRASTCLINICAL HISTORY: R10.9 Unspecified abdominal pain, abdominal pain abnormal xrayTECHNIQUE:Multipleaxial images of the abdomen were obtained following intravenous administration of iodinated contrast. Sagittal and coronal computerized reformatted images were also obtained. All CT images were acquired using low-dose technique with automated exposure control.COMPARISON: None.FINDINGS:Abdomen:1.Limited images to the lung bases demonstrates extensive calcifications at the level of the mitral valve annulus.2.No suspicious hepatic masses. Stable fat-containing lesion in the right hepatic dome anteriorly measures 7 mm may relate to a hamartoma.3.The spleen, pancreas, adrenal glands and gallbladder arenormal. No hydronephrosis.4.Circumferential edema involving the wall of the second segment duodenum in addition to a small amount of periduodenal edema. Incidental note is made of a small periampullaryduodenal diverticulum. Mild mucosal enhancement involving a short segment of the second portion duodenum. The findings are suggestive of an underlying inflammatory etiology possibly relating to post bulbar duodenitis. Correlation with endoscopy findings may be of benefit if there is mild luminal narrowing as well.5.The portal vein, SMV, and splenic vein are patent.6.Mild fluid and air filled distention of the stomach.7.Marked scoliosis of the lumbar spine. Osseous structures are demineralized with degenerative changes present.8.The abdominal aorta is of normal caliber. No retroperitoneal lymphadenop athy.IMPRESSION:1.Luminal narrowing with circumferential wall thickening involving the second segment duodenum in addition to periduodenal edema. The findings may relate to sequela of post bulbar duodenitis. There is mild air and fluid-filled distention of the stomach. Correlation with endoscopy findings may be of benefit. Incidental note is made of a small periampullary duodenal diverticulum.[facility]-[id number] MethodistXR Abdomen 1 [id number] 14:24:17 Hm Interface, Radiology Results - 08/26/2019 2:27 PM CSTEXAMINATION: XR ABDOMEN 1 VWCLINICAL HISTORY: 64 years 1955 R10.9 Unspecified abdominal pain, stomach pain burning COMPARISON: 11/19/2018IMPRESSION:1.There is prominent gaseous distention of the stomach, slightly increased from 11/19/2018. Recommend CT scan for further characterization of this finding.2.The colon is diffusely prominent and air-filled. This may be related to some ileus. No definite dilated air-filled loops of small bowel.3.No plain film evidence of free air. Herniorrhaphy changes over the pelvis.4.Degenerative changes and levoscoliosis in the lumbar spine.[facility]-[id number] MethodistSurgical pathology request 2019-06-22 17:51:25 Test Item Value Reference Range Interpretation Comments Case number (test code = [id number]) Surgical pathology See link below for report (test code = PDF Lab Report [id number]) Result status (test code This is Final Report = [id number]) for [id number] [facility]BAR[facility] wuuiqtb0899-35-96 07:36:16 Test Item Value Reference Range Interpretation Comments POC glucose (test code = 140 mg/dL 65-99 [place] [place] [id number]) Lab Interpretation (test Abnormal code = 47819-1) [place] TaoistIA Inject Sulfur Colloid [id number] 10:32:23Hm Interface, Radiology Results Incoming - 06/16/2019 10:35 AM CSTProcedure: NM INJECT SULFUR COLLOID LYMPHClinical History: C50.912 Malignant neoplasm of unspecified site of left female breast, Z17.1 Estrogen receptor negative status (ER-), LEFT BRCA Technique:1 millicurie of filtered Ty-33i-xcbkcgkduwlbl was injected intradermally in the left breast. No imaging was performed, as per physician rereece uest.Impression:Tracer was injected into the breast in preparation for sentinel lymph node surgery.[facility]-[id number] MfmiowlvhMwpsbv9790-52-09 09:56:11 Rajani Huggins CRNA 06/16/2019 9:56 AMAirwayDate/Time: 06/16/2019 9:56 AMPerformed by: Rajani Huggins CRNAAuthorized by: Vineet Lane MD Location: ORUrgency: ElectiveDifficult Airway: No Anesthesiologist: Vineet Lane, KAILEYesident/JONELLE/AA: Rajani Huggins CRNAPreoxygenated with 100% O2: Yes C-spine Precautions Maintained Throughout: Yes Mask Ventilation: Not attemptedFinal Airway Type: Supraglottic airwayFinal LMA: I-GelLMA Size: 4Number of Attempts at Approach: 1 Atraumatic Yonas KellerConsult Psvtoznsls8094-14-23 00:00:00Tangela Hutton MD - 06/16/2019 6:13 PM CSTFormatting of this note might be different from the orig inal.Cardiology Consult NoteAdmission Date: 06/16/2019 Consult Date: 06/16/19Reason for ConsultHTN Requesting ProviderVineet Le MD History of Present IllnessHectoryltaryn Yoon is a 63 y.o. female Brian Yoon is a 63 y.o. female with history of hypertension, diabetes mellitus type II, h yperlipidemia, chronic kidney disease who underwent left simple mastectomy and biopsy today. Patientremains stable without chest pain. 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 Diabetes mellitus (HCC) last hgba1c at 8.3 done 04/05/19 Fracture left hip and left knee r/t slip and fall -admitted [facility] ~2 wks and to SNF ~ 2 wks-discharged 04/2019 GERD (gastroesophageal reflux disease) Hyperlipidemia Hypertension Osteoarthritis Scoliosis Stage II breast cancer (HCC)dx 2017 left breast- chemo last dose 05/07/19- sees Dr Eugenie Bowen Stroke ([facility]) 05/2012 had surgery- no deficits Weight loss ~50 lbs r/t chemo- started chemo ~11/2018 No family history on file.Social History Tobacco Use Smoking status: Never Smoker [...] dextrose 10 % infusion 40 mL/hr intravenous ContinuousPRN dextrose 50% intravenous syringe 12.5 g intravenous Q20 Min PRN dextrose 50% intravenous syringe 25 g intravenous Q20 Min PRN diphenhydrAMINE (BENADRYL) tablet 25 mg 25 mg [id number] PRN [START ON 06/17/2019] enoxaparin (LOVENOX) syringe 40 mg 40 mg subcutaneous Daily at 0600 furosemide (LASIX) tablet 40 mg 40 mg oral BID glucagon injection 1 mg 1 mg intramuscular Q15 Min PRN HYDROcodone-acetaminophen (NORCO) 7.5-325 mg per tablet 1 tablet 1 tablet oral Q6H PRN 1 tablet at 06/16/19 175 insulin lispro (HumaLOG) injection (medium dose correctionscale) 0-7 Units 0-7 Units subcutaneous TID with meals 1 Units at 06/16/19 175 labetalol (NORMODYNE) tablet 200 mg 200 mg oral BID lactated ringer's infusion 75 mL/hr intravenous Continuous 75 mL/hr at 06/16/19 1630 letrozole (FEMARA) chemo tablet 2.5 mg 2.5 mg oral Daily linaG LIPtin (TRADJENTA) tablet 5 mg 5 mg oral Daily with breakfast metFORMIN XR (GLUCOPHAGE-XR) 24hr tablet 1,000 mg 1,000 mg oral BID [...] lb 8 oz) Pain Score: 7 Physical ExamGeneral: Well developed, well nourished, alert and cooperative, and appears to be in no acute distress. HEENT: Normocephalic. Atraumatic.Pulm: Clear to auscultation and percussion without rales, rhonchi, wheezing or diminished breath sounds. Cardiac: RRR. Normal S1 and S2. No S3, S4 or murmurs. Abdomen: Positive bowel sounds. Soft, nondistended, nontender. Extremities: trace peripheral edema.Neurologic: A&Kw3Lhqc/Radiology/DiagnosticsLabs No results found for the last 24 hours. Imaging Procedure Component ValueUnits Date/Time NM Inject Sulfur Colloid Lymph [[id number]] Collected: 06/16/19 103 Updated: 06/16/19 103 Narrative: Procedure: NM INJECT SULFUR COLLOID LYMPHClinical History: C50.912 Malignant neoplasm of unspecified site of left female breast, Z17.1 Estrogen receptor negative status (ER-), LEFT BRCA Technique:1 millicurie of filtered Ye-34x-iiivsg colloid was injected intradermally in the left breast. No imaging was performed, as per physician request.Impression:Tracer was injected into the breast in preparation for sentinel lymph node surgery.[facility]-[id number] ASSESSMENT AND PLANGaylin Jose Car is a 63 y.o. female Gaysonia Yoon is a 63 y.o. female with history of hypertension,diabetes mellitus type II, hyperlipidemia, chronic kidney disease who underwent left simple mastectomy and biopsy today. -Blood pressure stable-Cont on atorvastatin-Cont on lasix PO and labetalol [facility]: [id number] 10:33:09 Test Item Value Reference Range Interpretation Comments Ventricular rate (test 79 code = 253) Atrial rate (test code 79 = 255) OH interval (test code 168 = 266) QRSD interval (test 130 code = 260) QT interval (test code 412 = 264) QTC interval (test code 472 = 265) P axis 1 (test code = 43 267) QRS axis 1 (test code = -17 268) T wave axis (test code 11 = 270) EKG impression (test Normal sinus code = 273) rhythm-Right bundle branch block-Moderate voltage criteria for LVH, may be normal variant-Abnormal ECG-In automated comparison with ECG of 04-APR-2019 22:21,-No significant change was found- [facility] kwbbeebk9004-72-10 13:14:46 Test Item Value Reference Range Interpretation Comments WBC (test code = 47311-8) 13.43 4.50- 11.00 k/uL H RBC (test code = 61649-3) 4.09 m/uL 4.2-5.5 L HGB (test code = 718-7) 9.3 g/dL 12-16 L HCT (test code = 4544-3) 30.4 % 37-47 L MCV (test code = 787-2) 74.3 fL 82-100 L MCH (test code = 785-6) 22.7 pg 27-34 L MCHC (test code = 786-4) 30.6 g/dL 31-37 L RDW - SD (test code = 85907-7) 45.1 fL 37-55 MPV (test code = 86428-2) 9.2 fL 8.8-13.2 Platelet count (test code = 486 150- 400 k/uL H 65019-8) Nucleated RBC (test code = 0.00 /100 WBC 72766-4) Lab Interpretation (test code = Abnormal 64235-5) [facility] MethodistXR Chest 2 [id number] 12:57:04Hm Interface, Radiology Results Incoming - 06/04/2019 1:00 PM CSTEXAMINATION: XR CHEST 2 VWCLINICAL HISTORY: 63 years Female Z01.818 Encounter for other preprocedural examination, preopCOMPARISON: June 09IMPRESSION:Cardiomediastinal silhouette is unchanged. Atelectasis in the left lower lobe. The right lung is clear A chest port projects over the right upper hemithorax with the catheter terminating in superior vena cava. [facility]-[id number] MethodistUS Breast Complete Bilateral 2019-05-12 16:10:57 Test Item Value Reference Range Interpretation Comments DORIS (test code = DORIS) PROCEDURE: MAMMO BREAST DIAGNOSTIC TOMOSYNTHESIS BILATERAL, US BREAST COMPLETE BILATERAL Computer aided detection was utilized for the interpretation of the diagnostic mammography. HISTORY: History of a diagnosis of left breast cancer on chemotherapy.C50.912 Malignant neoplasm of unspecified site of left female breast, C50.912 COMPARISON: 10/07/2018, a left breast ultrasound-guided biopsy reveals invasive duct cancer. DENSITY: There are scattered areas of fibroglandular density. FINDINGS: Comparing to previous exam 09/23/2018, the mammographically detected mass in the left breast has shrunken down from a transverse width of 3.8 cm to 2.6 cm and then a width of about 2.6 cm. On the left MLO view the cephalocaudal dimension has shrunken down from 4.2 cm to 3.7 cm.No change in the scattered microcalcification seen bilaterally.Bilateral breast ultrasound complete.Scanning in all 4 quadrants and subareolar regions accomplished with close cyber crime investigator supervision. In the right breast no sign of any suspicious mass or distortion.On the left breast there is the retroareolar irregularly marginated hypoechoic mass measuring from 3.2 cm x 2.8 cm x 1.6 cm. Some the mass appears to have some anechoic features suggestive of posttreatment necrosis and/or fibrosis. The ultrasound measurements are much less traumatic then the changes seen on mammography. No sign of any new mass. IMPRESSION: Known malignancy on the left. RECOMMENDATION: Follow-up with oncology and surgery. BI-RADS 6: Known malignancy from previous biopsy. This facility is accredited by the [employer] for Mammography. A negative x-ray report should not delay biopsy if a dominant or clinically suspicious mass is present. Not all cancers are identified by x-ray. S01 Lab Interpretation Abnormal (test code = 12294-9) Yonas KellerMammo Breast Diagnostic Tomosynthesis [id number] 16:10:57 Test Item Value Reference Range Interpretation Comments DORIS (test code = DORIS) PROCEDURE: MAMMO BREAST DIAGNOSTIC TOMOSYNTHESIS BILATERAL, US BREAST COMPLETE BILATERAL Computer aided detection was utilized for the interpretation of the diagnostic mammography. HISTORY: History of a diagnosis of left breast cancer on chemotherapy.C50.912 Malignant neoplasm of unspecified site of left female breast, C50.912 COMPARISON: 10/07/2018, a left breast ultrasound-guided biopsy reveals invasive duct cancer. DENSITY: There are scattered areas of fibroglandular density. FINDINGS: Comparing to previous exam 09/23/2018, the mammographically detected mass in the left breast has shrunken down from a transverse width of 3.8 cm to 2.6 cm and then a width of about 2.6 cm. On the left MLO view the cephalocaudal dimension has shrunken down from 4.2 cm to 3.7 cm.No change in the scattered microcalcification seen bilaterally.Bilateral breast ultrasound complete.Scanning in all 4 quadrants and subareolar regions accomplished with close cyber crime investigator supervision. In the right breast no sign of any suspicious mass or distortion.On the left breast there is the retroareolar irregularly marginated hypoechoic mass measuring from 3.2 cm x 2.8 cm x 1.6 cm. Some the mass appears to have some anechoic features suggestive of posttreatment necrosis and/or fibrosis. The ultrasound measurements are much less traumatic then the changes seen on mammography. No sign of any new mass. IMPRESSION: Known malignancy on the left. RECOMMENDATION: Follow-up with oncology and surgery. BI-RADS 6: Known malignancy from previous biopsy. This facility is accredited by the [employer] for Mammography. A negative x-ray report should not delay biopsy if a dominant or clinically suspicious mass is present. Not all cancers are identified by x-ray. S01 Lab Interpretation Abnormal (test code = 81722-5) [facility]XR Knee 1 Or 2 Vw [id number] 20:58:53Hm Interface, Radiology Results Incoming - 04/23/2019 9:02 PM CDTEXAMINATION: XR KNEE 1 OR 2 VW LEFTCLINICAL HISTORY: Known lateral tibial plateau fracture following upCOMPARISON: April 04, 2019IMPRESSION: 1. Redemonstrated is a nondisplaced fracture of the lateral tibial plateau with evidence of sclerosis indicative of early healing. There is no new fracture or dislocation.2. Moderate patellofemo ral compartment predominant tricompartmental osteoarthritis.3. Mild disuse osteoporosis is noted.[facility]-[id number] MethodistBasic metabolic panel 2019-04-22 07:43:26 Test Item Value Reference Range Interpretation Comments Sodium (test code = 2951-2) 128 135- 148 mEq/L L Potassium (test code = 2823-3) 3.5 3.5- 5.0 mEq/L Chloride (test code = 2075-0) 90 98- 112 mEq/L L CO2 (test code = 8-9) 23 24- 31 mEq/L L Anion gap (test code = 70533-3) 15@ANIO 7- 15 mEq/L BUN (test code = 3094-0) 14 mg/dL 8-23 Creatinine (test code = 2160-0) 0.83 mg/dL 0.5-0.9 Glucose (test code = 2345-7) 132 mg/dL 65-99 H Calcium (test code = 71504-6) 10.0 mg/dL 8.8-10.2 Lab Interpretation (test code = Abnormal 68915-3) [facility] MethodistB natriuretic [id number] 07:29:59 Test Item Value Reference Range Interpretation Comments BNP (test code = 86116-6) 23 pg/mL 0-100 [facility] MethodistGastrointestinal [id number] 03:43:03Gastrointestinal panelNegative for all pathogens tested:Negative for SalmonellaNegative for CampylobacterNegative for Diarrheagenic E coli/ShigellaNegative for Shiga-like toxin-producing E coliNegativefor Plesiomonas shigelloidesNegative for Yersinia enterocoliticaNegative for Vibrio speciesNegative for Clostridium difficile (Toxin A/B)Negative for CryptosporidiumNegative for Giardia lambliaNegativefor Cyclospora cayeteanensisNegative for Entamoeba histolyticaNegative for Adenovirus F 40/41Negative for AstrovirusNegative for Norovirus GI/GIINegative for Rotavirus ANegative for SapovirusNegative for Clostridium difficile toxinNegative for E coli 0157This real-time PCR assay detects the presence of nucleic acids (RNA or DNA) for the gastrointestinal pathogens listed.A result of "Not-detected" does not exclude the possibility of the presence of one or more pathogens at concentrations less than the detectable limits of the assay. Comment: Specimen InformationSpecimen Source: StoolSpecimen Site: Nonpreserved [facility] MethodistBlood culture, aerobic & [id number] 08:03:03 Test Item Value Reference Range Interpretation Comments Blood culture No growth Specimen isolate (test after 5 days InformationSpe cimen code = 600-7) of Source: BloodS pecimen incubation. Site: Arm, joaquina t [facility] Pelvis Wo Hhfumcfq3971-05-09 22:43:10Hm Interface, Radiology Results - 04/05/2019 10:46 PM CDTEXAMINATION: MRI PELVIS WO CONTRASTCLINICAL HISTORY: Left hip painTECHNIQUE: Multiplanar multisequence MR images of the pelvis and left hip were obtained without contrast. The lack of intravenous contrast reduces the sensitivity of the examination.COMPARISON: CT on pelvis 11/19/2018.FINDINGS:No acute bone marrow signal abnormality sacrum, pelvis or proximal femora, specifically evidence for fracture, osteonecrosis or stress changes healed right inferior and superior pubic rami fractures. Multilevel lower lumbar degenerative disc disease and facet osteoarthritis is present.Mild symmetric atrophy throughout the pelvic girdle musculature. Mild tendinopathy of the left gluteus minimus and medius insertion without tear. The common hamstring tendon origin, adductor and iliopsoas tendons are grossly intact. No significant greater trochanteric bursitis. Subcutaneous edema tracks superficial to the gluteal aponeurosis, nonspecific. The course of the sciatic nerves are normal in appearance without piriformis asymmetry.Within the left hip joint there is a small effusion without discrete loose body. The ligamentum teres is intact. There is mild partial-thickness chondrosis within the superior acetabulum without discrete full-thickness chondrosis or significant subchondral edema. There is a suspected nondisplaced labral tear at the 2 o'clock position (series 12 image 2).The urinary bladder pinon are mildly thickened. The uterus is normal in appearance. The left ovary contains multiple T1 hyperintense subcentimeter circular structures,nonspecific. No lymphadenopathy.IMPRESSION: 1. No MR evidence for acute osseous abnormality.2. Smallnondisplaced left anterosuperior acetabular tear at the 2 o'clock position.3. Minimal left hip jointchondrosis with a trace small joint effusion.4. Mild left gluteus minimus and medius tendinopathy.5.Mild wall thickening of the urinary bladder, correlate urinalysis if concern for cystitis.4. Left ovarian subcentimeter T1 hyperintense structures are nonspecific, consider follow-up ultrasound for furt her evaluation.5. Other findings as described above.[facility]-[id number] [facility] Knee Left Wo Mdyeggcm1562-37-24 22:20:29Hm Interface, Radiology Results - 04/05/2019 10:23 PM CDTEXAMINATION: MRI KNEE WO CONTRAST LEFTCLINICAL HISTORY: Knee pain initial exam, s p fallTECHNIQUE: Multiplanar multisequence MR imaging of the knee was performed without contrast.COMPARISON: Left knee radiographs 04/04/2019FINDINGS:1. Cruciate ligaments: Intact.2. Collateral ligaments: Intact.3. Medial Meniscus: Medial meniscus intact.4. Medial Compartment Cartilage: Multifocal deep and near full-thickness chondrosis along the medial femoral condyle central weightbearing margin without subchondral edema. Mild partial thickness chondrosis matching along the medial tibial plateau central weightbearing margin.5. Lateral Meniscus: Lateral meniscus intact.6. Lateral Compartment Cartilage: Multifocal deep and near full- thickness partial-thickness chondrosis along the lateral femoral condyle central weightbearing margin without subchondral edema.7. Patellofemoral Compartment:Full-thickness chondrosis throughout the central medial facet extending to the median ridge with multifocal partial-thickness chondrosis along the lateral facet. Full-thickness chondrosis throughout the trochlear groove extending to the medial and lateral facets with subchondral edema/cystic changes 8. Extensor mechanism: Mild tendinopathy of the distal quadriceps tendon. The patellar tendon is intact..9. Effusion: Moderate sized knee effusion with mild synovitis. No discrete loose body.10. Bone marrow: Nondisplaced transverse oblique impaction fracture of the lateral tibial plateau with extension to the subchondral plate and no chondral defect. Patchy distal femur and proximal tibial red marrow conversion. 11. Soft tissues: Extensive subcutaneous edema th roughout the knee without organized fluid collection. Feathery edema along the vastus lateralis and vastus medialis may represent low-grade strains. The visualized course of the tibial and peroneal nerves are normal. IMPRESSION:1.Nondisplaced impaction fracture of the lateral tibial plateau.2.Moderatepatellofemoral predominant tricompartmental left knee chondrosis.3.Moderate-sized knee effusion withmild synovitis. 4.Other findings as described above.[facility]-[id number] Methodartesia general hospitalUs duplex venous lower [id number] 01:30:00Interface, Radiology Results In - 04/05/2019 1:30 AM CDT Vascular Ultrasound Laboratory Lower Extremity Venous [id number] [place] [address] Pat.Name: BRIAN YOON Pat.ID: [id number] .Date: 04/04/2019 Refer.MD: PHYSICIAN, EMERGENCY, Exsudha Time: 10:33:00 PM Study Type:LE Venous Height: 60in Weight: 173lb BSA: 1.76 m2 Age: 1 1955,63Y Sex: FEMALE Sonogrphr: MAYTE Mendiola, RDCS, RVTPat. Stat.:Inpatient Room: ED-34 Tape Vol: KG, CPT - 4: 43621 Echo Event ID:[id number] Order ID: [id number] Reason for Study:Left leg swelling and pain, DVT suspected.Procedures: Colorflow, Grayscale/2D, Pulsed wave DopplerRace: C SUMMARY:- DUPLEX SCAN OBSERVATIONS Deep Veins Superficial Veins Right Left Right Left GSV (prox) NormalCFV Normal Normal (above knee)Femoral Normal GSV (dist) NormalProfunda Normal (below knee)Popliteal NormalPT (prox) Normal SSV NormalPT (dist) Normal Per landa Normal Gastrocs Normal LEFT: There is normal compressibility with no evidence of echogenicmaterial noted within the lumen of the visualized veins. Colorflow andDoppler signals are normal. PRELIMINARY FINDINGS1. No evidence of venous thrombosis of the visualized veins.PHYSICIAN INTERPRETATION Venous examination of the left lower extremity and right groindemonstrated no evidence of venous thrombosis in the visualized veins. Normal compressibility and augmentation of all veins visualized.-- FINDINGS: S igned 04/05/2019 01:30 Angus Cha MD, [facility] ED Preliminary Interpretation - Not an [id number] 23:16:28 Test Item Value Reference Range Interpretation Comments DORIS (test code = DORIS) Daquan Park MD 04/05/2019 10:59 [facility] Preliminary Interpretation - Not an OrderPerformed by: Daquan Park MDAuthorized by: Daquan Park MD ECG reviewed by ED Physician in the absence of a student support services director: no Interpretation: Interpretation: abnormal Rate: ECG rate: 90 ECG rate assessment: normal Rhythm: Rhythm: sinus rhythm Ectopy: Ectopy: aberrant QRS: QRS axis: Left QRS intervals: NormalConduction: Conduction: abnormal Abnormal conduction: complete RBBB ST segments: ST segments: NormalT waves: T waves: normal Lab Interpretation Abnormal (test code = 23932-3) Bran[facility] RamonitaFormerly [facility] 12 [id number] 22:38:44 Test Item Value Reference Range Interpretation Comments Ventricular rate (test 90 code = 253) Atrial rate (test code 90 = 255) OH interval (test code 158 = 266) QRSD interval (test 134 code = 260) QT interval (test code 396 = 264) QTC interval (test code 484 = 265) P axis 1 (test code = 54 267) QRS axis 1 (test code = -2 268) T wave axis (test code 13 = 270) EKG impression (test Normal sinus rhythm code = 273) with sinus arrhythmia-Right bundle branch block-Abnormal ECG-In automated comparison with ECG of 04-JUL-2015 17:03,-Right bundle branch block is now present- Randolph Ramonitaartesia general hospitalXR Knee 4+ Vw [id number] 22:00:09Hm Interface, Radiology Results Incoming - 04/04/2019 10:03 PM CDTEXAMINATION: XR KNEE 4 VW LEFTCLI NICAL HISTORY: Knee pain initial examCOMPARISON: None.IMPRESSION:No evidence of acute left knee fracture, dislocation, or significant joint effusion. Mild degenerative changes. Bone mineralization is normal. Soft tissues are unremarkable.[facility]-[id number] Creek Surgical Hospital [id number] 17:31:19 Test Item Value Reference Range Interpretation Comments Urine culture Mixed bryn Specimen isolate (test 04-02 col/cc InformationSpe cimen code = 12947-0) Source: Urin eSpecimen Site: Random vo id [facility] CenterG[facility] [id number] 17:31:19Gram stain resultRare WBC'sFew Gram positive rods Comment: Specimen InformationSpecimen Source: UrineSpecimen Site: Random void [facility] MethodistUrinalysis screen and microscopy, with reflex to [id number] 13:24:43 Test Item Value Reference Range Interpretation Comments Specimen site (test code = Random void 2916085) Color, UA (test code = 5778-6) Yellow Appearance, UA (test code = Clear 5767-9) Specific gravity, UA (test code = 1.003 1.001-1.035 5811-5) pH, UA (test code = 5803-2) 7.5 5.0-8.5 Protein, UA (test code = 20436-7) Negative Negative Glucose, UA (test code = 23190-3) Negative Negative Ketones, UA (test code = 2514-8) Negative Negative Bilirubin, UA (test code = Negative Negative 5770-3) Blood, UA (test code = 5794-3) Negative Negative Nitrite, UA (test code = 5802-4) Negative Negative Urobilinogen, UA (test code = <2.0 <2.0 97980-4) Leukocyte esterase, UA (test code Trace Negative A = 5799-2) WBC, UA (test code = 5821-4) 1 0- 4 /HPF RBC, UA (test code = 14741-2) None seen 0- 5 /HPF Bacteria, UA (test code = None seen None seen 70970-8) Yeast, UA (test code = 73759-4) None seen Yeast with pseudohyphae, UA (test None seen code = 60841-7) Lab Interpretation (test code = Abnormal 70783-8) Yonas [place] [id number] 14:59:37Hm Interface, Radiology Results - 12/23/2018 3:02 PM CDTEXAMINATION: IR PORT PLACEMENTCLIN ICAL HISTORY: C50.912 Malignant neoplasm of unspecified site of left female breast, new chemo startCOMPARISON: None.PROCEDURE: Venous port placementProcedural PersonnelAttending physician(s): KUSHAL De Leonre- procedure diagnosis: Breast cancerPost-procedure diagnosis: SameIndication: Administration of chemotherapyAdditional clinical history: NoneComplications: No immediate complications.IMPRESSION: Insertion of right-sided power-injectable single-lumen tunneled chest port, with catheter tip in the expected location of the cavoatrial junction.Plan: The port may be used immediately. PROCEDURE SUMMARY:- Venous access with ultrasound guidance- Tunneled port insertion under fluoroscopic guidance- Additional procedure(s): NonePre-procedureHistory and imaging of central venous access reviewed (QCDR): Yes Consent: Informed consent for the procedure including risks, benefits and alternatives was obtained and time-out was performedprior to the procedure.Preparation (MIPS): The site was prepared and draped using all elements of maximal sterile barrier technique including sterile gloves, sterile gown, cap, mask, large sterile sheet, sterile ultrasound probe cover, hand hygiene and cutaneous antisepsis with 2% chlorhexidine. Medical reason for site preparation exception (MIPS): Not applicableAnesthesia/sedationLevel of anesthesia/sedation: Moderate sedation (conscious sedation)Anesthesia/sedation administered by: Independent trained observer under attending supervision with continuous monitoring of the patient's level of consciousness and physiologic statusTotal intra-service sedation time (minutes): 26AccessLocal anesthesia was administered. The vessel was sonographically evaluated and determined to be patent. Real time ultrasound was used to visualize needle entry into the vessel and a permanent image was stored.Vein accessed: Internal jugular veinAccess technique: Micropuncture set with 21 gauge needlePort placementAn incision was made at the upper chest, [...] fluoroscopically verified and a permanent image was stored.Port placed: [employer] SmartPortCatheter size (Croatian): 8Catheter flush: Heparin (100 units/mL)ClosureThe access site and incision were closed and sterile dressing(s) were applied.Access site closure technique: Tissue adhesiveIncision closure technique: Absorbable suture and tissue adhesivePatient discharged from procedure suite with device accessed: NoContrastContrast agent: NoneContrast volume (mL): 0Radiation DoseReference air kerma (mGy): 7 Additional DetailsAdditional description of procedure: NoneEquipment details: NoneSpecimens removed: NoneEstimated blood loss (mL): Less than 10Standardized report: [id number] Keller
--- NOTE | 2019-12-22 08:30 | RAD REPORT ---
EXAM DESCRIPTION: RAD - Chest Single View - 12/21/2019 11:02 pm CLINICAL HISTORY: COUGH Chest pain. COMPARISON: CHEST SINGLE VIEW dated 06/04/2012 FINDINGS: Portable technique limits examination quality. The lungs are grossly clear. The heart is upper limit normal in size. Right-sided port catheter has t ip in the right atrium. Old healed fracture proximal left humerus. IMPRESSION: No acute intrathoracic process suspected.
--- NOTE | 2019-12-22 10:32 | ER ---
Nurse's Notes [facility] Name: Juliet Yoon Age: 64 yrs Sex: Female : 1955 Arrival Date: 12/21/2019 Time: 21:47 Bed 8 Private MD: Diagnosis: Fall due to bumping against object;Laceration without foreign body of other part of head-left scalp;Altered mental status, unspecified;Fracture of base of skull-left hemotympanum Presentation: 12/20 21:40 Chief complaint: EMS states: Pt is on Chemo, has been getting weaker and weaker until jb4 she fell tonight. Normal she is alert and oriented and was alert and oriented x3 upon arrival of EMS on scene. She has sense become confused, has been repeating the same questions, and has started getting combative. 21:40 Coronavirus screen: Proceed with normal triage. Ebola Screen: No symptoms or risks jb4 identified at this time. Initial Sepsis Screen: Does the patient meet any 2 criteria? Altered Mental Status. Does the patient have a suspected source of infection? No. Patient's initial sepsis screen is negative. Risk Assessment: Do you want to hurt yourself or someone else? Patient reports desire/thoughts of hurting themselves or someone else. Provider notified. Onset of symptoms was December 21, 2019. Mechanism of Injury: Fall from standing position. Transition of care: patient was not received from another setting of care. 21:40 Method Of Arrival: EMS: [place] [address] 21:40 Acuity: [facility] 2 [facility] 21:40 Care prior to arrival: None. Trauma event details: Injury occurred in the county [place] [address] Triage Assessment: 21:40 General: Appears in no apparent distress. uncomfortable, Behavior is calm, cooperative. jb4 Pain: Complains of pain in left occipital area Pain does not radiate. Pain currently is 6 out of 10 on a pain scale. EENT: Ear canal w/ bleeding noted from left ear. Neuro: Level of Consciousness is awake, alert, confused, Oriented to person, place, time, situation, Pt is A\\T\\0 4 but continues to repeat herself and seems confused about what is currently happening.. Cardiovascular: Patient's skin is warm and dry. Respiratory: Airway is patent Respiratory effort is even, unlabored, Respiratory pattern is regular, symmetrical. GI: No signs and/or symptoms were reported involving the gastrointestinal system. : No signs and/or symptoms were reported regarding the genitourinary system. Derm: Skin is pink, warm \\T\\ dry. Musculoskeletal: Circulation, motion, and sensation intact. Range of motion: intact in all extremities. Injury Description: Laceration sustained to left occipital area is full thickness, bleeding moderately. Trauma Activation: Alert Physician: ED Physician; Name: Sherwin; Notified At: 21:40; Arrived At: 21:40 Physician: General Surgeon; Name: ; Notified At: 21:40; Arrived At: Physician: Radiology; Name: Yesenia; Notified At: 21:40; Arrived At: 21:40 Physician: Respiratory; Name: ; Notified At: 21:40; Arrived At: Physician: Lab; Name: ; Notified At: 21:40; Arrived At: Historical: - Allergies: 21:40 Augmentin; jb4 - Home Meds: 21:40 Tobramycin Opht [Active]; tramadol 50 mg Oral tab 1 tab every 4 hours [Active]; jb4 atorvastatin 10 mg oral tab 1 tab once daily [Active]; metformin 500 mg Oral tab 2 tabs 2 times per day [Active]; Tradjenta 5 mg oral tab 1 tab once daily [Active]; labetalol 200 mg Oral tab 2 tabs 2 times per day [Active]; duloxetine 60 mg oral cpDR 1 cap once daily [Active]; furosemide 40 mg Oral tab 1 tab 2 times per day [Active]; - PMHx: 21: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 - Social history:: Smoking status: Patient denies any tobacco usage or history of. Patient/guardian denies using alcohol, street drugs. - Immunization history: Last tetanus immunization: unknown. - Family history:: not pertinent. Screenin:40 Abuse screen: Denies threats or abuse. Nutritional screening: No deficits noted. jb4 Tuberculosis screening: No symptoms or risk factors identified. Fall Risk Fall in past 12 months (25 points). IV access (20 points). Mental Status- Overestimates/Forgets Limitations (15 pts.). Total Calabrese Fall Scale indicates High Risk Score (45 or more points). Fall prevention measures have been instituted. Side Rails Up X 2 Placed Close to Nursing Station Frequent Obs/Assessments Occuring. Primary Survey: 21:40 NO uncontrolled hemorrhage observed. A: The patient is alert. Airway: patent, No jb4 supplemental oxygen in use on arrival. Oral cavity: clear, gag reflex present. Breathing/Chest: Respiratory pattern: regular, Respiratory effort: spontaneous, unlabored, Chest inspection: symmetrical rise and fall of the chest. Circulation: Skin color: pink, Skin temperature: warm, dry. Disability Alert. Exposure/Environment: All clothing and personal items were removed. Forensic evidence collection is not deemed to be indicated at this time. Items placed in patient belonging bag. 22:40 Reassessment Airway Airway Patent Oxygen No O2 Oral cavity Clear +Gag reflex jb4 Breathing/Chest Respiratory pattern Regular Respiratory effort Spontaneous Unlabored Chest inspection Symmetrical Circulation Color [place] Temperature Warm Dry Disability Alert. Secondary Survey: 22:40 HEENT: Head Other Laceration to the right side of the head Face No injury/deformity jb4 Eyes: No injury or deformity noted. Ears: bleeding noted from left ear Nose: clear Throat: is clear with gag reflex present. Gastrointestinal: No deficits noted. : No signs and/or symptoms were reported regarding the genitourinary system. Musculoskeletal: No signs and/or symptoms reported regarding the musculoskeletal system. Circulation, motion, and sensation intact. Range of motion: intact in all extremities. Injury Description: Laceration sustained to left occipital area is clean, full thickness, 0.5 to 2.5 cm long, bleeding moderately. Assessment: 21:40 General: see triage assessment.. jb4 22:40 Reassessment: Patient appears in no apparent distress at this time. Patient and/or jb4 family updated on plan of care and expected duration. Pain level reassessed. Pt back from CT. Pt is resting in bed, respirations are even and unlabored. Pt is A\\T\\O x 4 but remains confused about what is happening and continues to repeat herself. Bleeding continues from the left ear. Provider notified. 22:50 Reassessment: Spoke with patients brother. Updated him on patients condition. jb4 23:40 Reassessment: Patient appears in no apparent distress at this time. Patient and/or jb4 family updated on plan of care and expected duration. Pain level reassessed. Patient is alert, oriented x 3, equal unlabored respirations, skin warm/dry/pink. 12/21 00:30 Reassessment: Patient appears in no apparent distress at this time. Patient and/or jb4 family updated on plan of care and expected duration. Pain level reassessed. Patient is alert, oriented x 3, equal unlabored respirations, skin warm/dry/pink. 00:36 Reassessment: report given to MARVIN Rowell of [facility] [place] [place]. mg2 00:50 Reassessment: Spoke with patients brother, Manjeet Navarro, updated him on plan of care to [facility] transfer patient to [facility]. Brother states " Do not transfer her to [place]. I want you to tell the to call [facility] and try and transfer her there. They have a trauma center too and all of her DrKely's are there." Explained to the patient that due to an influx of Covid patients in the area that hospital beds are very limited, and that [facility] will not take her if there are no beds. Brother states " I don't care call them and try and transfer her to [facility]. 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 [facility] reports no availability. 01:00 Reassessment: Pt's brother called and informed that [facility] reports having no Neuro [facility] ICU beds. States" Fine send her, she will be out of there by tomorrow any how. 02:00 Reassessment: Patient appears in no apparent distress at this time. Patient and/or jb4 family updated on plan of care and expected duration. Pain level reassessed. Patient is alert, oriented x 3, equal unlabored respirations, skin warm/dry/pink. Pt is A\\T\\0 3, remains confused and forgetful. Has to be reminded of why she is here and what happened. 02:57 Reassessment: Patient appears in no apparent distress at this time. No changes from jb4 previously documented assessment. Patient and/or family updated on plan of care and expected duration. Pain level reassessed. PT transferred to [place] via [facility]. Vital Signs: 12/20 21:40 BP 87 / 59; Pulse 70; Resp 18; Pulse Ox 100% on R/A; Pain 6/10; jb4 22:30 BP 122 / 59; Pulse 68; Resp 16; Temp 98.0; Pulse Ox 100% on R/A; Pain 6/10; jb4 23:30 BP 149 / 68; Pulse 76; Resp 16; Pulse Ox 96% on R/A; jb4 12/21 00:30 BP 147 / 88; Pulse 80; Resp 16; Pulse Ox 99% on R/A; jb4 01:30 BP 141 / 72; Pulse 78; Resp 16; Pulse Ox 95% on R/A; jb4 02:30 BP 148 / 76; Pulse 78; Resp 16; Pulse Ox 97% on R/A; jb4 Eulalio Coma Score: 12/20 21:40 Eye Response: spontaneous(4). Verbal Response: confused(4). Motor Response: obeys jb4 commands(6). Total: 14. 22:30 Eye Response: spontaneous(4). Verbal Response: confused(4). Motor Response: obeys jb4 commands(6). Total: 14. 23:05 Eye Response: spontaneous(4). Verbal Response: confused(4). Motor Response: obeys den commands(6). Total: 14. 23:30 Eye Response: spontaneous(4). Verbal Response: confused(4). Motor Response: obeys jb4 commands(6). Total: 14. 12/21 00:30 Eye Response: spontaneous(4). Verbal Response: confused(4). Motor Response: obeys jb4 commands(6). Total: 14. 01:30 Eye Response: spontaneous(4). Verbal Response: confused(4). Motor Response: obeys jb4 commands(6). Total: 14. 02:30 Eye Response: spontaneous(4). Verbal Response: confused(4). Motor Response: obeys jb4 commands(6). Total: 14. Trauma Score (Adult): 12/20 21:40 Eye Response: spontaneous(1); Verbal Response: confused(1); Motor Response: obeys jb4 commands(2); Systolic BP: 76 to 89 mm Hg(3); Respiratory Rate: 10 to 29 per min(4); [place] Score: 14; Trauma Score: 11 22:30 Eye Response: spontaneous(1); Verbal Response: confused(1); Motor Response: obeys jb4 commands(2); Systolic BP: > 89 mm Hg(4); Respiratory Rate: 10 to 29 per min(4); Eulalio Score: 14; Trauma Score: 12 23:30 Eye Response: spontaneous(1); Verbal Response: confused(1); Motor Response: obeys jb4 commands(2); Systolic BP: > 89 mm Hg(4); Respiratory Rate: 10 to 29 per min(4); [place] Score: 14; Trauma Score: 12 12/21 00:30 Eye Response: spontaneous(1); Verbal Response: confused(1); Motor Response: obeys jb4 commands(2); Systolic BP: > 89 mm Hg(4); Respiratory Rate: 10 to 29 per min(4); Eulalio Score: 14; Trauma Score: 12 01:30 Eye Response: spontaneous(1); Verbal Response: confused(1); Motor Response: obeys jb4 commands(2); Systolic BP: > 89 mm Hg(4); Respiratory Rate: 10 to 29 per min(4); Eulalio Score: 14; Trauma Score: 12 02:30 Eye Response: spontaneous(1); Verbal Response: confused(1); Motor Response: obeys jb4 commands(2); Systolic BP: > 89 mm Hg(4); Respiratory Rate: 10 to 29 per min(4); Eulalio Score: 14; Trauma Score: 12 ED Course: 12/20 21:40 Patient has correct armband on for positive identification. Bed in low position. Call jb4 light in reach. Side rails up X 1. equipment monitor phototypesetting on. Pulse ox on. NIBP on. 21:40 Maintain EMS IV. Site clean \\T\\ dry. Gauge \\T\\ site: 20g rite wrist.. daly 4 21:40 Patient maintains SpO2 saturation greater than 95% on room air. jb4 21:40 Thermoregulation: warm blanket given to patient. jb4 21:47 Patient arrived in ED. ds1 21:59 Juve Courtney MD is Attending Physician. den 22:24 Adán Tay, MARVIN is Primary Nurse. jb4 22:41 Triage completed. jb4 12/21 01:49 Head C Spine Cap W Con In Process Unspecified. EDMS 01:53 Chest Single View In Process Unspecified. EDMS 02:30 No provider procedures requiring assistance completed. Patient transferred, IV remains jb4 in place. Administered Medications: 12/20 22:00 Drug: Lidocaine-Epinephrine -1%: (1:100,000) 8 ml {Note: administered by the provider.} mg2 Volume: 20 ml; Route: Infiltration; 22:48 Drug: NS 0.9% 1000 ml Route: IV; Rate: 1 bolus; Site: right forearm; mg2 23:50 Follow up: Response: No adverse reaction; IV Status: Completed infusion jb4 22:49 Drug: Rocephin 1 grams Route: IV; Rate: per protocol; Site: right forearm; mg2 22:51 Follow up: Response: No adverse reaction; IV Status: Completed infusion jb4 Intake: 12/21 03:02 IV: 1000ml (IV Fluid); Total: 1000ml. jb4 Outcome: 12/20 23:10 ER care complete, transfer ordered by . den 12/21 03:03 Transferred by ground EMS to [facility], Transfer form completed. X-rays sent jb4 w/ patient. Condition: stable Discharge instructions given to family, Instructed on the need for transfer, Demonstrated understanding of instructions. 03:03 Patient's length of stay in the Emergency Department was greater than 2 hours. Pt jb4 transferred.Patient's length of stay extended due to 03:03 Patient left the ED. 4 Signatures: Dispatcher [employer] Juve Otero MD MD cha Sanford, Demi ds1 Adán Tay RN RN jb4 Sam Thayer RN RN mg2 Corrections: (The following items were deleted from the chart) 01:49 12/20 22:40 Reassessment: Patient appears in no apparent distress at this time. Patient jb4 and/or family updated on plan of care and expected duration. Pain level reassessed. Pt back from CT. Pt is resting in bed, respirations are even and unlabored. Pt is A\\T\\O x 4 but remains confused about what is happening and continues to repeat herself. Bleeding continues from the left ear. Provider notified. [facility] 12/21 03:03 02:30 Transferred by ground EMS to [facility], Transfer form completed. jb4 X-rays sent w/ patient. jb4 03:03 02:30 Condition: stable jb4 jb4 03:03 02:30 Discharge instructions given to family, Instructed on the need for transfer, jb4 Demonstrated understanding of instructions, jb4
--- NOTE | 2019-12-22 10:32 | EDPHYS ---
Physician Documentation [facility] Name: Juliet Yoon Age: 64 yrs Sex: Female : 1955 Arrival Date: 12/21/2019 Time: 21:47 Bed 8 Private MD: JOSÉ Physician Juve Courtney HPI: 12/20 22:59 This 64 yrs old Female presents to ER via EMS with complaints of Fall. den 22:59 The patient or guardian reports injury, a laceration, pain. The complaints affect the den left frontal area, left temporal area and left ear. Context of injury: The problem was sustained at home, resulted from a fall. Onset: The symptoms/episode began/occurred just prior to arrival. Associated signs and symptoms: Loss of consciousness: This patient experience a loss of consciousness, Pertinent positives: loss of conciousness, ams, blood from left ear. Details of fall: The patient fell from an upright position, while walking. Associated injuries: The patient sustained injury to the head, laceration, pain, left ear, blood from canal,hemotympanum. 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 - Social history:: Smoking status: Patient denies any tobacco usage or history of. Patient/guardian denies using alcohol, street drugs. - Immunization history: Last tetanus immunization: unknown. - Family history:: not pertinent. ROS: 22:59 Eyes: Negative for injury, pain, redness, and discharge, Neck: Negative for injury, den pain, and swelling, Cardiovascular: Negative for chest pain, palpitations, and edema, Respiratory: Negative for shortness of breath, cough, wheezing, and pleuritic chest pain, Abdomen/GI: Negative for abdominal pain, nausea, vomiting, diarrhea, and constipation, Back: Negative for injury and pain, : Negative for injury, bleeding, discharge, and swelling, MS/Extremity: Negative for injury and deformity, Skin: Negative for injury, rash, and discoloration, Psych: Negative for depression, anxiety, suicide ideation, homicidal ideation, and hallucinations, Allergy/Immunology: Negative for hives, rash, and allergies, Endocrine: Negative for neck swelling, polydipsia, polyuria, polyphagia, and marked weight changes, Hematologic/Lymphatic: Negative for swollen nodes, abnormal bleeding, and unusual bruising. 22:59 Constitutional: Positive for ams, laceration left side of head, blood from left eat. Exam: 22:59 Constitutional: This is a well developed, well nourished patient who is awake, alert, den and in no acute distress. Head/Face: Normocephalic, atraumatic. Eyes: Pupils equal round and reactive to light, extra-ocular motions intact. Lids and lashes normal. Conjunctiva and sclera are non-icteric and not injected. Cornea within normal limits. Periorbital areas with no swelling, redness, or edema. Neck: Trachea midline, no thyromegaly or masses palpated, and no cervical lymphadenopathy. Supple, full range of motion without nuchal rigidity, or vertebral point tenderness. No Meningismus. Chest/axilla: Normal chest wall appearance and motion. Nontender with no deformity. No lesions are appreciated. Cardiovascular: Regular rate and rhythm with a normal S1 and S2. No gallops, murmurs, or rubs. Normal PMI, no JVD. No pulse deficits. Respiratory: Lungs have equal breath sounds bilaterally, clear to auscultation and percussion. No rales, rhonchi or wheezes noted. No increased work of breathing, no retractions or nasal flaring. Abdomen/GI: Soft, non-tender, with normal bowel sounds. No distension or tympany. No guarding or rebound. No evidence of tenderness throughout. Back: No spinal tenderness. No costovertebral tenderness. Full range of motion. Skin: Warm, dry with normal turgor. Normal color with no rashes, no lesions, and no evidence of cellulitis. MS/ Extremity: Pulses equal, no cyanosis. Neurovascular intact. Full, normal range of motion. Psych: Awake, alert, with orientation to person, place and time. Behavior, mood, and affect are within normal limits. 22:59 ENT: External ear(s): blood in canal, TM's: hemotympanum, on the left. 22:59 Neuro: Orientation: to person, place, Not oriented to time, situation, Mentation: confused, Memory: unable to test, Cranial nerves: grossly normal, is grossly normal based on the patient's age, no acute changes, facial droop noted on left, not new. Cerebellar function: is grossly normal based on the patient's age, no acute changes, Motor: moves all fours, Sensation: no obvious gross deficits, appropriate no acute changes, Gait: not tested. Deep tendon reflexes are 1 (trace) + in the bilateral brachioradialis, bicep, tricep and patellar and Achilles tendons, seizure activity, is not displayed by the patient. Vital Signs: 21:40 BP 87 / 59; Pulse 70; Resp 18; Pulse Ox 100% on R/A; Pain 6/10; jb4 22:30 BP 122 / 59; Pulse 68; Resp 16; Temp 98.0; Pulse Ox 100% on R/A; Pain 6/10; jb4 23:30 BP 149 / 68; Pulse 76; Resp 16; Pulse Ox 96% on R/A; jb4 12/21 00:30 BP 147 / 88; Pulse 80; Resp 16; Pulse Ox 99% on R/A; jb4 01:30 BP 141 / 72; Pulse 78; Resp 16; Pulse Ox 95% on R/A; jb4 02:30 BP 148 / 76; Pulse 78; Resp 16; Pulse Ox 97% on R/A; jb4 [place] Coma Score: 12/20 21:40 Eye Response: spontaneous(4). Verbal Response: confused(4). Motor Response: obeys jb4 commands(6). Total: 14. 22:30 Eye Response: spontaneous(4). Verbal Response: confused(4). Motor Response: obeys jb4 commands(6). Total: 14. 23:05 Eye Response: spontaneous(4). Verbal Response: confused(4). Motor Response: obeys den commands(6). Total: 14. 23:30 Eye Response: spontaneous(4). Verbal Response: confused(4). Motor Response: obeys jb4 commands(6). Total: 14. 12/21 00:30 Eye Response: spontaneous(4). Verbal Response: confused(4). Motor Response: obeys jb4 commands(6). Total: 14. 01:30 Eye Response: spontaneous(4). Verbal Response: confused(4). Motor Response: obeys jb4 commands(6). Total: 14. 02:30 Eye Response: spontaneous(4). Verbal Response: confused(4). Motor Response: obeys jb4 commands(6). Total: 14. Trauma Score (Adult): 12/20 21:40 Eye Response: spontaneous(1); Verbal Response: confused(1); Motor Response: obeys jb4 commands(2); Systolic BP: 76 to 89 mm Hg(3); Respiratory Rate: 10 to 29 per min(4); Eulalio Score: 14; Trauma Score: 11 22:30 Eye Response: spontaneous(1); Verbal Response: confused(1); Motor Response: obeys jb4 commands(2); Systolic BP: > 89 mm Hg(4); Respiratory Rate: 10 to 29 per min(4); [place] Score: 14; Trauma Score: 12 23:30 Eye Response: spontaneous(1); Verbal Response: confused(1); Motor Response: obeys jb4 commands(2); Systolic BP: > 89 mm Hg(4); Respiratory Rate: 10 to 29 per min(4); [place] Score: 14; Trauma Score: 12 12/21 00:30 Eye Response: spontaneous(1); Verbal Response: confused(1); Motor Response: obeys jb4 commands(2); Systolic BP: > 89 mm Hg(4); Respiratory Rate: 10 to 29 per min(4); [place] Score: 14; Trauma Score: 12 01:30 Eye Response: spontaneous(1); Verbal Response: confused(1); Motor Response: obeys jb4 commands(2); Systolic BP: > 89 mm Hg(4); Respiratory Rate: 10 to 29 per min(4); Eulalio Score: 14; Trauma Score: 12 02:30 Eye Response: spontaneous(1); Verbal Response: confused(1); Motor Response: obeys jb4 commands(2); Systolic BP: > 89 mm Hg(4); Respiratory Rate: 10 to 29 per min(4); Eulalio Score: 14; Trauma Score: 12 [facility]: 12/20 21:59 Patient medically screened. [facility] 23:05 Differential diagnosis: Contusion of Hematoma on Laceration of Intracranial bleed- [facility] Concussion with LOC. cerebral contusion. Differential diagnosis: abrasion, closed head injury, contusion, fracture, laceration, multiple trauma. Data reviewed: vital signs, nurses notes, lab test result(s), EKG, radiologic studies, CT scan, plain films. Data interpreted: satellite project site monitor: rate is 68 beats/min, Pulse oximetry: on room air is 100 %. Test interpretation: by ED physician or midlevel provider: ECG, plain radiologic studies. Counseling: I had a detailed discussion with the patient and/or guardian regarding: the historical points, exam findings, and any diagnostic results supporting the discharge/admit diagnosis, lab results, radiology results, the need to transfer to another facility, for higher level of care, [facility] does not immediately have the required specialist. ED course: fall , ams, blood vai left ear canal , hemotympanum. 12/21 01:05 Order name: Basic Metabolic Panel [facility] 12/21 01:05 Order name: Liver (Hepatic) Function [facility] 12/21 01:05 Order name: Troponin (Emerg Dept Use Only) [facility] 12/21 01:05 Order name: NT PRO-BNP [facility] 12/21 01:05 Order name: Magnesium [facility] 12/21 01:05 Order name: CBC with Automated Diff [facility] 12/21 01:05 Order name: Protime (+INR) [facility] 12/20 22:02 Order name: Cardiac monitoring; Complete Time: 22:17 [facility] 12/20 22:02 Order name: EKG - Nurse/Tech; Complete Time: 22:17 [facility] 12/20 22:02 Order name: IV Saline Lock; Complete Time: 22:17 [facility] 12/20 22:02 Order name: Labs collected and sent; Complete Time: 22:17 [facility] 12/20 22:02 Order name: O2 Per Protocol; Complete Time: 22:17 [facility] 12/20 22:02 Order name: O2 Sat Monitoring; Complete Time: 22:18 [facility] 12/20 22:02 Order name: Dressing - Wound; Complete Time: 22:49 [facility] 12/21 01:47 Order name: Head C Spine Cap W Con [facility] 12/21 01:50 Order name: Chest Single View [facility] 12/20 22:02 Order name: Gloves, Sterile; Complete Time: 22:17 [facility] 12/20 22:02 Order name: Setup Suture Tray; Complete Time: 22:17 [facility] Administered Medications: 22:00 Drug: Lidocaine-Epinephrine -1%: (1:100,000) 8 ml {Note: administered by the provider.} mg2 Volume: 20 ml; Route: Infiltration; 22:48 Drug: NS 0.9% 1000 ml Route: IV; Rate: 1 bolus; Site: right forearm; mg2 23:50 Follow up: Response: No adverse reaction; IV Status: Completed infusion jb4 22:49 Drug: Rocephin 1 grams Route: IV; Rate: per protocol; Site: right forearm; mg2 22:51 Follow up: Response: No adverse reaction; IV Status: Completed infusion jb4 Disposition: 12/21/19 23:10 Transfer ordered to [facility]. Diagnosis are Fall due to bumping against object, Laceration without foreign body of other part of head - left scalp, Altered mental status, unspecified, Fracture of base of skull - left hemotympanum. - Reason for transfer: Higher level of care. - Accepting physician is to [facility]. - Condition is Fair. - Problem is new. - Symptoms are unchanged. Signatures: Dispatcher [employer] [facility] Juve Courtney MD MD cha Bryson, James, RN RN jb4 Sam Thayer RN RN mg2 Corrections: (The following items were deleted from the chart) 12/21 03:03 12/20 23:10 12/21/2019 23:10 Transfer ordered to [facility]. Diagnosis is jb4 Fall due to bumping against object; Laceration without foreign body of other part of head - left scalp; Altered mental status, unspecified; Fracture of base of skull - left hemotympanum. Reason for transfer: Higher level of care. Accepting physician is to [facility]. Condition is Fair. Problem is new. Symptoms are unchanged. [facility]
--- NOTE | 2019-12-22 12:04 | RAD REPORT ---
EXAM DESCRIPTION: CT - Head C Spine Cap Latonya Rene - 12/22/2019 5:36 am CLINICAL HISTORY: Head and neck injury with chest and abdominal pain status post fall. Head and neck pain . TECHNIQUE: Computed axial tomography of the head and cervical spine was obtained Computed axial tomography of the chest, abdomen and pelvis was obtained. 100 cc Isovue-300 was given intravenously coronal and sagittal reconstruction was performed. All CT scans are performed using dose optimization technique as appropriate and may include automated exposure control or mA/KV adjustment according to patient size. COMPARISON: CT head August 2019 FINDINGS: Post surgical changes involve the right skull and right cerebrum with gliosis. An intracranial bleed is not seen. The ventricles are normal in caliber. An extra-axial fluid collect ion is not noted. Chronic opacification of the left mastoids is unchanged A cervical fracture is not seen. No dislocation is seen. A mediastinal hematoma is not noted. A pleural effusion is not present. A lung contusion is not seen. The liver, spleen, pancreas, adrenals, kidneys and bladder do not demonstrate an acute traumatic inju ry. Nonobstructing right renal calculi Old pelvic fractures IMPRESSION: 1. No acute intracranial abnormality is seen 2. A cervical fracture is not visualized. If the patient continues have symptoms to suggest intracran ial/spinal cord pathology then MRI would be recommended. 3. No acute traumatic injury involving the chest, abdomen or pelvis is seen. . Due to technical problems the report could not be dictated after the exam was completed. A prelim rep ort was given to Dr. Courtney
--- NOTE | 2019-12-22 12:23 | EKG ---
Test Date: 2019-12-21 Test Time: 21:56:12 Rn Forensic: ROMEO MEASUREMENT RESULTS: Intervals: Rate: 69 GA: 166 QRSD: 138 QT: 498 QTc: 533 [place]: P: GA: 166 QRS: 193 T: 178 INTERPRETIVE STATEMENTS: Normal sinus rhythm Right bundle branch block T wave abnormality, consider inferior ischemia Abnormal ECG Compared to ECG 06/04/2012 20:40:27 Right bundle-branch block now present T-wave abnormality now present Possible ischemia now present Electronically Signed On 12-22-19 12:22:19 CDT by Naseem Hayden
[2019-12-22 16:25] VITALS: TEMP 98
[2019-12-22 16:30] VITALS: BP 148/76; O2SAT 97
== END 2019-12-22 03:03 | disposition short-term general hospital (02) ==
LOC: ER 21:44
PROC: 0JQ00ZZ Repair Scalp Subcutaneous Tissue and Fascia, Open Approach (ICD-10-PCS; principal; 2019-12-22)
DX: S01.01XA Laceration without foreign body of scalp, initial encounter (principal); S02.102A Fracture of base of skull, left side, initial encounter for closed fracture; W19.XXXA Unspecified fall, initial encounter; Y93.01 Activity, walking, marching and hiking; Y92.9 Unspecified place or not applicable; H73.892 Other specified disorders of tympanic membrane, left ear; I10 Essential (primary) hypertension; E11.9 Type 2 diabetes mellitus without complications; Z86.73 Personal history of transient ischemic attack (TIA), and cerebral infarction without residual deficits; Z88.1 Allergy status to other antibiotic agents
CPT/HCPCS: 96361; 93005; 85025; 80048; 36415; 83735; 85610; 82565; 80076; 84484; 83880; 70450; 72125; 71260; 74177; 71045; 96374; 99285; 12001; Q9967; J0696; J7030